=== PATIENT | female | born 1950 | race Caucasian/White ===

== ENCOUNTER 2019-04-16 11:20 | Inpatient (IN) ==
[2019-04-16] MEDS ORDERED: MORPHINE SULFATE 2 MG/ML DISP.SYRIN IV ONE (12:00)
[2019-04-16 12:14] LABS: Hematocrit 30.3 % (37.0-47.0); Hemoglobin 9.6 gm/dL (12.5-16.0); Mean Cell Volume 104.1 fl (78-100); Mean Corpuscular Hgb Conc 31.7 g/dl (32-36); Mean Platelet Volume 11.3 fl (8-12.5); Neutrophil # 4.9 K/mm3 (1.3-6.0); Neutrophil % 86.3 % (42-75.0); Platelet Count 140 K/mm3 (150-450); Red Blood Count 2.91 M/mm3 (4.2-5.4); Red Cell Distribution Width 15.3 % (11.5-14.0); White Blood Count 5.7 K/mm3 (4.0-10.5)
[2019-04-16 12:27] LABS: Albumin * 2.3 gm/dl (3.4-5.0); Anion Gap 11.9 mmol/L (6.8-13.8); BUN/Creatinine Ratio 31.4 (9.0-21.6); Bilirubin, Total 0.4 mg/dL (0.0-1.1); CRP 5.2 mg/dL (0.0-0.9); Ca. Corrected For Albumin 9.9 mg/dL (8.4-10.2); Calcium * 8.9 mg/dL (7.9-10.9); Carbon Dioxide 27.1 mmol/L (24-32.6)
[2019-04-16 13:10] LABS: Urine Bilirubin Negative (NEGATIVE); Urine Ketone Negative (NEGATIVE); Urine Nitrite Negative (NEGATIVE); Urine Protein Negative (NEGATIVE); Urine Specific Gravity 1.015 SP.GR. (1.005-1.010); Urine Urobilinogen Normal (NORMAL)
[2019-04-16] MEDS ORDERED: MORPHINE SULFATE 2 MG/ML DISP.SYRIN IM ONE (13:15)
[2019-04-16 13:16] LABS: Urine Appearance Clear (CLEAR); Urine Bacteria 2+; Urine Blood 5 /ul (NEGATIVE); Urine Color Yellow; Urine RBC None Seen /hpf (0-5)
[2019-04-16] MEDS ORDERED: cefTRIAXone SODIUM 1,000 MG/100 ML BAG IV ONE (13:50)
--- NOTE | 2019-04-16 14:20 | ERNOTE ---
Back Pain ER HPI Date of Service: 04/16/19 Presenting Symptoms: hx chronic back pain Time Seen by Provider: 04/16/19 11:47 Source: patient, family Exam Limitations: no limitations Immunizations: IMMUNIZATION HX Immunizations Up to Date No History of Influenza Vaccine Yes Hx Pneumococcal Vaccination Yes Allergies/Adverse Reactions: Allergies Sulfa (Sulfonamide Antibiotics) Adverse Reaction (Verified 04/16/19 11:30) Home Medications: HOME MEDICATIONS Ascorbic Acid [Vitamin C] 500 mg PO DAILY 03/26/19 [Last Taken Unknown] Aspirin [Aspirin EC] 81 mg PO DAILY 03/26/19 [Last Taken Unknown] Atorvastatin Calcium [Lipitor] 10 mg PO DAILY 03/26/19 [Last Taken Unknown] Bumetanide 1 mg PO DAILY 03/26/19 [Last Taken Unknown] Cyanocobalamin (Vitamin B-12) [Vitamin B-12] 1,000 mcg PO DAILY 03/26/19 [Last Taken Unknown] Folic Acid 0.8 mg PO DAILY 03/26/19 [Last Taken Unknown] Hydroxychloroquine Sulfate 200 mg PO DAILY 03/26/19 [Last Taken Unknown] Levothyroxine Sodium [Synthroid] 112 mcg PO DAILY 03/26/19 [Last Taken Unknown] Lidocaine [Lidocaine Pain Relief] 1 ea TOPICAL HS 03/26/19 [Last Taken Unknown] Multivitamin [One Daily] 1 ea PO DAILY 03/26/19 [Last Taken Unknown] Pregabalin 200 mg PO TID 03/26/19 [Last Taken Unknown] Rivaroxaban [Xarelto] 10 mg PO DAILY 03/26/19 [Last Taken Unknown] Sennosides/Docusate Sodium [Senokot-S] 1 tab PO BID 03/26/19 [Last Taken Unknown] amLODIPine BESYLATE [Norvasc] 5 mg PO DAILY 03/26/19 [Last Taken Unknown] Polyethylene Glycol 3350 [Miralax] 17 gm PO DAILY 04/01/19 [Last Taken Unknown] metFORMIN HCL [Metformin HCl] 500 mg PO BID 04/01/19 [Last Taken Unknown] tiZANidine HCL [Tizanidine HCl] 4 mg PO TID PRN 04/01/19 [Last Taken Unknown] Acetaminophen 650 mg PO .Q6H PRN 04/16/19 [Last Taken Unknown] Bisacodyl 10 mg RC DAILY PRN 04/16/19 [Last Taken Unknown] Lidocaine HCl [Aspercreme] 76.5 gm TOPICAL QID PRN 04/16/19 [Last Taken Unknown] Menthol/Zinc Oxide [Calmoseptine Ointment] 71 gm TOPICAL BID 04/16/19 [Last Taken Unknown] Saccharomyces Boulardii [Probiotic] 250 mg PO DAILY 04/16/19 [Last Taken Unknown] Narrative: Patient presents to the ED via EMS. EMS called for back pain. THis has been chronic back pain that she has been seen many times for. She by report had been doing well up to December 21, 2018, since then she has gone downhill. She has been unable to walk well, chronic low back pain. She has had UTI and just finished Macrobid yesterday. Had low abdominal pain yesterday and dysuria and was cathed with 700 cc in her bladder last night. No fever. No falls. Pain worse with movement. Timing: Reports: constant, getting worse Quality/Severity: Reports: severe Location of pain: Reports: other - low back Activities at Onset: Reports: none Recent Injury?: Reports: no Possible Precipitating Factor: Reports: none Modifying Factors - (Improves): Reports: nothing Modifying Factors - (Worsens): Reports: other - movement Associated Symptoms: Reports: problems urinating. Denies: fever/chills, nausea/vomiting Prior Treament: Reports: recently seen, similar symptoms before Review of Systems - Review of Systems Constitutional: Absent: fever Respiratory: Absent: shortness of breath Cardiology: Absent: chest pain Gastrointestinal/Abdominal: Present: other - low abdominal pain last night Genitourinary: Present: See HPI All Other Systems: All systems neg except as marked Medical History (Last Reviewed 04/16/19 @ 14:12 by Jesus Alberto Ocampo MD) Anal fistula Diabetes High cholesterol Hypertension Hypothyroid Rheumatoid arthritis Shingles Spinal stenosis Surgical History: Surgical History (Last Reviewed 04/16/19 @ 14:12 by Jesus Alberto Ocampo MD) S/P cervical spinal fusion Family History: Family History (Last Reviewed 04/16/19 @ 14:12 by Jesus Alberto Ocampo MD) Other No pertinent family history Social History: (Last Reviewed 04/16/19 @ 14:12 by Jesus Alberto Ocampo MD) Tobacco: Smoking Status: Former smoker Alcohol: alcohol intake: never Substance Use: substance use type: does not use Physical Exam - Physical Exam General Appearance: Present: alert, other - yells out in pain with movement Head Exam: Present: normal inspection, no evidence of injury Eye Exam: Normal inspection: bilateral, PERRL: bilateral Ears, Nose, Throat: Present: normal ENT inspection Neck: Present: normal inspection Respiratory: Present: no respiratory distress, normal breath sounds, no accessory muscle use, lungs clear Cardiovascular/Chest: Present: regular rate, rhythm, normal peripheral pulses Gastrointestinal/Abdominal: Present: normal bowel sounds, nondistended, soft, other - mild suprapubic tendenress low abdomen. No guarding or rebound. No clear masses or peritoneal signs Back Exam: Present: other - unable to localize tennderess to point vertebral site. Absent: CVA tenderness (R), CVA tenderness (L) Extremity Exam: Present: other - no deformity Neurological Exam: Present: alert, other - pain significantly limits exam but I cannot identift clear evidence of acute cauda equina syndrone Skin Exam: Present: normal color, warm/dry Progress - Results and Orders Patient's Lab Results:: I have reviewed the patient's lab results. - Vital Signs Patient's Vital Signs:: I have reviewed the patient's vital signs. Vital Signs: Vital Signs 04/16/19 11:23 04/16/19 13:29 Temperature 36.5 C Pulse Rate 102 H 91 Respiratory Rate 15 14 Blood Pressure 116/77 125/54 O2 Sat by Pulse Oximetry 100 100 - Progress/Reassessment Chief Complaint: Back Pain Progress Note-Subjective: 04/16/19 14:14 Patient has had 2 CT lumbar here in the last couple of weeks. I feel she needs MRI but has cochlear implant. She needs admission. Patient seen in ED by Dr Mackay and she will admit for further evaluation and management. Has UTI with failed outpatient management and intractable back pain. 04/16/19 14:19 Departure Clinical Impression: Intractable back pain, UTI (urinary tract infection), Failure of outpatient treatment - Departure Disposition: Still a patient Condition: Fair
[2019-04-16] MEDS ORDERED: DIATRIZOATE MEGLUMINE, SODIUM 30 ML BTL ONE (15:22)
[2019-04-16] MEDS ORDERED: LIDOCAINE HCL TP PRN (16:09)
[2019-04-16] MEDS ORDERED: ACETAMINOPHEN 325 MG TABLET PO PRN (16:09)
[2019-04-16] MEDS ORDERED: BISACODYL 10 MG SUPP.RECT RC PRN (16:09)
[2019-04-16] MEDS ORDERED: tiZANidine HCL 4 MG TABLET PO PRN (16:09)
--- NOTE | 2019-04-16 16:21 | HP ---
Chief Complaint - Chief Complaint Date of Service: 04/16/19 Time of Service: 14:00 Chief Complaint: back pain History of Present Illness: Pt witha PMHx of rheumatoid arthritis, rectovaginal fistula, obesity, diabetes, remote DVT. She is a resident of a care facility in [place], and her PCP is an outside physician. She has had multiple ED visits for severe back pain in the last few weeks. Prior to that, she was hospitalized with what family reports as a blood infection at [facility], and the source was unknown. She has had the rectovaginal fistula, but declines surgical intervention. She's had several UTIs in the last few months. She was just prescribed macrobid, which she finished yesterday. She also had a physician offer to give her an injection in her back for her pain, but requires the UTI to be cleared prior to the injection. Family states she has multiple bulging discs. She has not walked in several weeks due to the pain. She has had difficulty urinating, and family reports she screams when she urinates. Cutler catheter was placed last night, and 700 cc urine was drained from her bladder. In the ED, WBC is normal and she is afebrile. ESR is elevated at 115. CRP is also elevated at 5.2, which is an improvement from 04/01, when it was 33. She has a cochlear implant which precludes MRI. CT lumbar spine, done 03/26 and 04/01 showed multilevel degenerative change. She is not currently prescribed pain medication. She has chronic renal failure, and appears to be at her baseline. Medical History (Last Reviewed 04/16/19 @ 14:59 by Keyon Rea RN) Anal fistula Diabetes High cholesterol Hypertension Hypothyroid Rheumatoid arthritis Shingles Spinal stenosis Surgical History: Surgical History (Last Reviewed 04/16/19 @ 14:59 by Keyon Rea RN) S/P cervical spinal fusion Family History: Family History (Last Reviewed 04/16/19 @ 14:59 by Keyon Rea RN) Other No pertinent family history Social History: (Last Reviewed 04/16/19 @ 14:59 by Keyon Rea RN) Tobacco: Smoking Status: Former smoker Alcohol: alcohol intake: never Substance Use: substance use type: does not use Review Of Systems (GEN) - Review of Systems Generalized/Overall Review: Absent: Fever Respiratory: Absent: Cough, Shortness of Breath Cardiac: Absent: Chest Pain, Edema Abdominal: Absent: Vomiting Genitourinary: Present: Retention, Dysuria Musculoskeletal: Present: Back Pain Neurological: Present: No Symptoms Reported Skin: Present: No Symptoms Reported Immunizations: IMMUNIZATION HX Immunizations Up to Date No History of Influenza Vaccine Yes Hx Pneumococcal Vaccination Yes Allergies/Adverse Reactions: Allergies Allergy/AdvReac Type Severity Reaction Status Date / Time Sulfa (Sulfonamide AdvReac Verified 04/16/19 14:59 Antibiotics) Home Medications: HOME MEDICATIONS Ascorbic Acid [Vitamin C] 500 mg PO DAILY 03/26/19 [Last Taken Unknown] Aspirin [Aspirin EC] 81 mg PO DAILY 03/26/19 [Last Taken Unknown] Atorvastatin Calcium [Lipitor] 10 mg PO DAILY 03/26/19 [Last Taken Unknown] Bumetanide 1 mg PO DAILY 03/26/19 [Last Taken Unknown] Cyanocobalamin (Vitamin B-12) [Vitamin B-12] 1,000 mcg PO DAILY 03/26/19 [Last Taken Unknown] Folic Acid 0.8 mg PO DAILY 03/26/19 [Last Taken Unknown] Hydroxychloroquine Sulfate 200 mg PO DAILY 03/26/19 [Last Taken Unknown] Levothyroxine Sodium [Synthroid] 112 mcg PO DAILY 03/26/19 [Last Taken Unknown] Lidocaine [Lidocaine Pain Relief] 1 ea TOPICAL HS 03/26/19 [Last Taken Unknown] Multivitamin [One Daily] 1 ea PO DAILY 03/26/19 [Last Taken Unknown] Pregabalin 200 mg PO TID 03/26/19 [Last Taken Unknown] Rivaroxaban [Xarelto] 10 mg PO DAILY 03/26/19 [Last Taken Unknown] Sennosides/Docusate Sodium [Senokot-S] 1 tab PO BID 03/26/19 [Last Taken Unknown] amLODIPine BESYLATE [Norvasc] 5 mg PO DAILY 03/26/19 [Last Taken Unknown] Polyethylene Glycol 3350 [Miralax] 17 gm PO DAILY PRN 04/01/19 [Last Taken Unknown] metFORMIN HCL [Metformin HCl] 500 mg PO BID 04/01/19 [Last Taken Unknown] tiZANidine HCL [Tizanidine HCl] 4 mg PO TID PRN 04/01/19 [Last Taken Unknown] Acetaminophen 650 mg PO .Q6H PRN 04/16/19 [Last Taken Unknown] Bisacodyl 10 mg RC DAILY PRN 04/16/19 [Last Taken Unknown] Lidocaine HCl [Aspercreme] 76.5 gm TOPICAL QID PRN 04/16/19 [Last Taken Unknown] Menthol/Zinc Oxide [Calmoseptine Ointment] 71 gm TOPICAL BID 04/16/19 [Last Taken Unknown] Methotrexate Sodium [Methotrexate] 15 mg PO MO 04/16/19 [Last Taken Unknown] Mycophenolate Mofetil [Cellcept] 500 mg PO 0600,1600 04/16/19 [Last Taken Un known] Saccharomyces Boulardii [Probiotic] 250 mg PO DAILY 04/16/19 [Last Taken Unknown] Exam - Exam Vital Signs: Vital Signs - Last Taken Temp 36.5 C 04/16/19 15:15 Pulse 96 04/16/19 15:24 Resp 16 04/16/19 15:15 BP 145/63 04/16/19 15:15 Pulse Ox 100 04/16/19 15:15 Constitutional: Present: Elderly, Morbidly obese, Looks Older than stated age Respiratory: Present: lungs clear, normal breath sounds Cardiovascular/Chest: Present: regular rate, rhythm Abdomen: Present: tender - diffuse Skin Exam: Present: other - bruising of left lower leg Diagnostic Studies: Abnormal Lab Results 04/16/19 04/16/19 04/16/19 Range/Units 12:13 12:13 12:13 RBC 2.91 L (4.2-5.4) M/mm3 Hgb 9.6 L (12.5-16.0) gm/dL Hct 30.3 L (37.0-47.0) % MCV 104.1 H (78-100) fl MCH 33.0 H (27-31) pg MCHC 31.7 L (32-36) g/dl RDW 15.3 H (11.5-14.0) % Plt Count 140 L (150-450) K/mm3 Immature Gran % (Auto) 0.70 H (0.001-0.429) % Immature Gran # (Auto) 0.04 H (0.000-0.0310) K/mm3 Neutrophils % 86.3 H (42-75.0) % Lymphocytes % 9.5 L (20-51) % Lymphocytes # 0.54 L (1.5-3.5) k/mm3 ESR 115 H (0-15) mm/hr BUN 65 H (3-23) mg/dL Creatinine 2.07 H D (0.4-1.4) mg/dL Est GFR (Non-Af Amer) 25 L D (60-130) mL/min BUN/Creatinine Ratio 31.4 H (9.0-21.6) Random Glucose 171 H (70-110) mg/dL AST 69 H (0-48) U/L Alkaline Phosphatase 201 H (50-170) U/L C-Reactive Prot, Quant 5.2 H (0.0-0.9) mg/dL Albumin 2.3 L (3.4-5.0) gm/dl Urine Blood (NEGATIVE) /ul Ur Leukocyte Esterase (NEGATIVE) /ul Urine WBC (0-5) /hpf Urine Bacteria (NONE) 04/16/19 Range/Units 13:02 RBC (4.2-5.4) M/mm3 Hgb (12.5-16.0) gm/dL Hct (37.0-47.0) % MCV (78-100) fl MCH (27-31) pg MCHC (32-36) g/dl RDW (11.5-14.0) % Plt Count (150-450) K/mm3 Immature Gran % (Auto) (0.001-0.429) % Immature Gran # (Auto) (0.000-0.0310) K/mm3 Neutrophils % (42-75.0) % Lymphocytes % (20-51) % Lymphocytes # (1.5-3.5) k/mm3 ESR (0-15) mm/hr BUN (3-23) mg/dL Creatinine (0.4-1.4) mg/dL Est GFR (Non-Af Amer) (60-130) mL/min BUN/Creatinine Ratio (9.0-21.6) Random Glucose (70-110) mg/dL AST (0-48) U/L Alkaline Phosphatase (50-170) U/L C-Reactive Prot, Quant (0.0-0.9) mg/dL Albumin (3.4-5.0) gm/dl Urine Blood 5 H (NEGATIVE) /ul Ur Leukocyte Esterase 75 H (NEGATIVE) /ul Urine WBC 10-25 H (0-5) /hpf Urine Bacteria 2+ H (NONE) Laboratory Results WBC 5.7 K/mm3 (4.0-10.5) 04/16/19 12:13 RBC 2.91 M/mm3 (4.2-5.4) L 04/16/19 12:13 Hgb 9.6 gm/dL (12.5-16.0) L 04/16/19 12:13 Hct 30.3 % (37.0-47.0) L 04/16/19 12:13 MCV 104.1 fl (78-100) H 04/16/19 12:13 MCH 33.0 pg (27-31) H 04/16/19 12:13 MCHC 31.7 g/dl (32-36) L 04/16/19 12:13 RDW 15.3 % (11.5-14.0) H 04/16/19 12:13 Plt Count 140 K/mm3 (150-450) L 04/16/19 12:13 MPV 11.3 fl (8-12.5) 04/16/19 12:13 Immature Gran % (Auto) 0.70 % (0.001-0.429) H 04/16/19 12:13 Immature Gran # (Auto) 0.04 K/mm3 (0.000-0.0310) H 04/16/19 12:13 Neutrophils % 86.3 % (42-75.0) H 04/16/19 12:13 Lymphocytes % 9.5 % (20-51) L 04/16/19 12:13 Monocytes % 2.6 % (0.0-9) 04/16/19 12:13 Eosinophils % 0.5 % (0.0-3.0) 04/16/19 12:13 Basophils % 0.4 % (0.0-1.0) 04/16/19 12:13 Nucleated RBC % 0.0 k/mm3 (0-1) 04/16/19 12:13 Neutrophils # 4.9 K/mm3 (1.3-6.0) 04/16/19 12:13 Lymphocytes # 0.54 k/mm3 (1.5-3.5) L 04/16/19 12:13 Monocytes # 0.2 k/mm3 (0.0-1.0) 04/16/19 12:13 Eosinophils # 0.0 k/mm3 (0.0-0.7) 04/16/19 12:13 Absolute Basophils 0.0 k/mm3 (0.0-0.1) 04/16/19 12:13 ESR 115 mm/hr (0-15) H 04/16/19 12:13 Sodium 135 mmol/L (132-142) 04/16/19 12:13 Plasma Sodium 136 mmol/L (130-142) 04/16/19 12:13 Potassium 4.0 mmol/L (3.4-4.6) 04/16/19 12:13 Chloride 100 mmol/L (97-106) 04/16/19 12:13 Carbon Dioxide 27.1 mmol/L (24-32.6) 04/16/19 12:13 Anion Gap 11.9 mmol/L (6.8-13.8) 04/16/19 12:13 BUN 65 mg/dL (3-23) H 04/16/19 12:13 Creatinine 2.07 mg/dL (0.4-1.4) H D 04/16/19 12:13 Est GFR (Non-Af Amer) 25 mL/min (60-130) L D 04/16/19 12:13 BUN/Creatinine Ratio 31.4 (9.0-21.6) H 04/16/19 12:13 Random Glucose 171 mg/dL (70-110) H 04/16/19 12:13 Lactic Acid, Venous 1.5 mmol/L (0.4-2.0) 04/16/19 12:13 Calcium 8.9 mg/dL (7.9-10.9) 04/16/19 12:13 Calcium Adj for Albumin 9.9 mg/dL (8.4-10.2) 04/16/19 12:13 Total Bilirubin 0.4 mg/dL (0.0-1.1) 04/16/19 12:13 AST 69 U/L (0-48) H 04/16/19 12:13 ALT 61 U/L (19-67) 04/16/19 12:13 Alkaline Phosphatase 201 U/L (50-170) H 04/16/19 12:13 C-Reactive Prot, Quant 5.2 mg/dL (0.0-0.9) H 04/16/19 12:13 Total Protein 7.0 gm/dL (6.2-8.2) 04/16/19 12:13 Albumin 2.3 gm/dl (3.4-5.0) L 04/16/19 12:13 Procalcitonin 0.22 ng/mL (0.05-0.50) 04/16/19 13:32 Urine Color Yellow 04/16/19 13:02 Urine Appearance Clear (CLEAR) 04/16/19 13:02 Urine pH 6.0 pH (5.0-7.0) 04/16/19 13:02 Ur Specific [place] 1.015 SP.GR. (1.005-1.010) 04/16/19 13:02 Urine Protein Negative mg/dL (NEGATIVE) 04/16/19 13:02 Urine Glucose (UA) Negative mg/dL (NEGATIVE) 04/16/19 13:02 Urine Ketones Negative mg/dL (NEGATIVE) 04/16/19 13:02 Urine Blood 5 /ul (NEGATIVE) H 04/16/19 13:02 Urine Nitrate Negative (NEGATIVE) 04/16/19 13:02 Urine Bilirubin Negative mg/dl (NEGATIVE) 04/16/19 13:02 Urine Urobilinogen Normal EU/dl (NORMAL) 04/16/19 13:02 Ur Leukocyte Esterase 75 /ul (NEGATIVE) H 04/16/19 13:02 Urine RBC None seen /hpf (0-5) 04/16/19 13:02 Urine WBC 10-25 /hpf (0-5) H 04/16/19 13:02 Ur Epithelial Cells 0-5 /hpf (0-5) 04/16/19 13:02 Urine Bacteria 2+ (NONE) H 04/16/19 13:02 Urine Culture Comments Culture to follow 04/16/19 13:02 Assessment/Plan - Assessment/Plan (1) Intractable back pain Assessment: Lumbar CTs that have been done recently did not reveal a source of her back pain. She can not get an MRI due to the type of cochlear implant she has. This does not appear to be a new concern, as she has had so many ED visits. Her vitals are within normal limits. Will attempt to control pain with norco. When pain is controlled, can DC back to facility. PT eval pending. Her ESR was highly elevated, but she had 2 [address]s, which would have shown discitis. ESR can also be elevated in obesity, and she also has RA, and a UTI. Will attempt to compare to previous levels at hospitalizations at outside facilities. Will recheck ESR in am. Her CRP improved since last check, so anticipate her ESR may be improving as well. Problem: Acute (2) Rectovaginal fistula Assessment: Discussed options with gynecology, and I recommend she see urogynecology as an outpatient. Problem: Chronic (3) UTI (urinary tract infection) Assessment: Rocephin started in the eD, and will continue. Her urine culture from 04/01 grew Klebsiella, sensitive to rocephin. She'd reportedly been on macrobid until yesterday. With her rectovaginal fistula, and her inability to walk, it will be almost impossible to keep her from having recurrent UTIs. Recommend she see urogynecology after ED. Problem: Acute (4) Acute on chronic renal failure Assessment: Creatinine of 2.07. The three creatinine levels we have here, in the last month, have been greater than 2.0, so she may be at her baseline. GFR of 26, again which appears to be her baseline. Will ask pharmacy's assistance to renally dose her medications on DC. Problem: Acute (5) Abdominal pain Assessment: Her renal function is too low for IV contrast, and she declined po contrast for a CT. Noncontrast CT abd/pel will be of limited benefit, but will help with diagnosis. She has generalized abdominal pain on exam. She is prescribed several medications for constipation, and will continue. Problem: Acute Qualifiers: Abdominal location: generalized Qualified Code(s): R10.84 - Generalized abdominal pain (6) History of DVT (deep vein thrombosis) Assessment: Son reports one incidence of DVT several years ago, and she is prescribed Xarelto. Will attempt to obtain records from PCP and recent hospitalizations. If it truly was an isolated clot, she may not need ongoing anticoagulation. However, she is bedbound currently, putting her at increased risk for clot. Will need to discuss risks vs benefits. Problem: Chronic (7) Diabetes mellitus Assessment: She is prescribed metformin, however with her GFR of less than 40, this is contraindicated. Will hold, and DC. Problem: Chronic (8) Rheumatoid arthritis Assessment: she is prescribed mycophenolate and methotrexate for RA. Will attempt to get rheumatology records. Problem: Chronic
[2019-04-16] MEDS: HYDROcodone/ACETAMINOPHEN 1 EACH TABLET PO PRN (16:58)
[2019-04-16] MEDS: NORMAL SALINE 1,000 ML IV PRN (16:58)
[2019-04-16] MEDS: GABAPENTIN 100 MG CAPSULE PO SCH (17:00)
[2019-04-16] MEDS ORDERED: DIATRIZOATE MEGLUMINE, SODIUM 30 ML BTL PO ONE (17:00)
[2019-04-16] MEDS ORDERED: metFORMIN HCL 500 MG TABLET PO SCH (17:00)
[2019-04-16] MEDS: Menthol/Zinc Oxide [Calmoseptine Ointment] TP SCH (20:25)
[2019-04-16] MEDS: LIDOCAINE TP SCH (20:25)
[2019-04-17] MEDS: NORMAL SALINE 1,000 ML IV PRN (00:54)
[2019-04-17] MEDS: HYDROcodone/ACETAMINOPHEN 1 EACH TABLET PO PRN ×4 (00:57→21:40)
[2019-04-17] MEDS: VANCOMYCIN HCL 50 MG/ML BTL PO SCH ×4 (02:33→21:10)
[2019-04-17] MEDS: LEVOTHYROXINE SODIUM 112 MCG TABLET PO SCH (06:49)
[2019-04-17 07:54] LABS: Albumin * 2.1 gm/dl (3.4-5.0); Anion Gap 12.9 mmol/L (6.8-13.8); BUN/Creatinine Ratio 32.6 (9.0-21.6); Bilirubin, Total 0.5 mg/dL (0.0-1.1); Ca. Corrected For Albumin 9.9 mg/dL (8.4-10.2); Calcium * 8.7 mg/dL (7.9-10.9); Carbon Dioxide 25.6 mmol/L (24-32.6); Potassium 3.5 mmol/L (3.4-4.6); Total Protein 6.4 gm/dL (6.2-8.2)
[2019-04-17] MEDS: BUMETANIDE 1 MG TABLET PO SCH (09:29)
[2019-04-17] MEDS: Menthol/Zinc Oxide [Calmoseptine Ointment] TP SCH ×2 (09:33→20:12)
[2019-04-17] MEDS: amLODIPine BESYLATE 5 MG TABLET PO SCH (09:33)
[2019-04-17] MEDS: GABAPENTIN 100 MG CAPSULE PO SCH ×3 (09:33→17:03)
[2019-04-17] MEDS: HYDROXYCHLOROQUINE SULFATE 200 MG TABLET PO SCH (09:34)
--- NOTE | 2019-04-17 09:38 | PN ---
Subjective - Date and Time Seen Date: 04/17/19 Time: 08:30 Subjective Narrative: She reports feeling a bit better this morning. She has been having diarrhea overnight, however. She does not feel very hungry, but is thirsty. Objective - Review of Systems Generalized/Overall Review: Reports: Weakness. Denies: Fever Respiratory: Reports: Cough. Denies: Shortness of Breath Cardiac: Denies: Edema Abdominal: Reports: Diarrhea. Denies: Vomiting Genitourinary Symptoms: Reports: Other - catheter in place Musculoskeletal Complaints: Reports: Back Pain - Vitals Vitals: Last Vital Signs Temp 36.9 C 04/17/19 08:00 Pulse 85 04/17/19 09:33 Resp 16 04/17/19 08:00 BP 135/55 04/17/19 09:33 Pulse Ox 100 04/17/19 08:00 - Abnormal Lab Findings Abnormal Lab Findings: Abnormal Lab Results 04/16/19 04/16/19 04/16/19 Range/Units 12:13 12:13 12:13 RBC 2.91 L (4.2-5.4) M/mm3 Hgb 9.6 L (12.5-16.0) gm/dL Hct 30.3 L (37.0-47.0) % MCV 104.1 H (78-100) fl MCH 33.0 H (27-31) pg MCHC 31.7 L (32-36) g/dl RDW 15.3 H (11.5-14.0) % Plt Count 140 L (150-450) K/mm3 Immature Gran % (Auto) 0.70 H (0.001-0.429) % Immature Gran # (Auto) 0.04 H (0.000-0.0310) K/mm3 Neutrophils % 86.3 H (42-75.0) % Lymphocytes % 9.5 L (20-51) % Lymphocytes # 0.54 L (1.5-3.5) k/mm3 ESR 115 H (0-15) mm/hr BUN 65 H (3-23) mg/dL Creatinine 2.07 H D (0.4-1.4) mg/dL Est GFR (Non-Af Amer) 25 L D (60-130) mL/min BUN/Creatinine Ratio 31.4 H (9.0-21.6) Random Glucose 171 H (70-110) mg/dL AST 69 H (0-48) U/L ALT (19-67) U/L Alkaline Phosphatase 201 H (50-170) U/L C-Reactive Prot, Quant 5.2 H (0.0-0.9) mg/dL Albumin 2.3 L (3.4-5.0) gm/dl Urine Blood (NEGATIVE) /ul Ur Leukocyte Esterase (NEGATIVE) /ul Urine WBC (0-5) /hpf Urine Bacteria (NONE) Stl C.difficile Tox A&B (Negative) 04/16/19 04/17/19 04/17/19 Range/Units 13:02 00:40 07:24 RBC (4.2-5.4) M/mm3 Hgb (12.5-16.0) gm/dL Hct (37.0-47.0) % MCV (78-100) fl MCH (27-31) pg MCHC (32-36) g/dl RDW (11.5-14.0) % Plt Count (150-450) K/mm3 Immature Gran % (Auto) (0.001-0.429) % Immature Gran # (Auto) (0.000-0.0310) K/mm3 Neutrophils % (42-75.0) % Lymphocytes % (20-51) % Lymphocytes # (1.5-3.5) k/mm3 ESR Greater than 120 H (0-15) mm/hr BUN (3-23) mg/dL Creatinine (0.4-1.4) mg/dL Est GFR (Non-Af Amer) (60-130) mL/min BUN/Creatinine Ratio (9.0-21.6) Random Glucose (70-110) mg/dL AST (0-48) U/L ALT (19-67) U/L Alkaline Phosphatase (50-170) U/L C-Reactive Prot, Quant (0.0-0.9) mg/dL Albumin (3.4-5.0) gm/dl Urine Blood 5 H (NEGATIVE) /ul Ur Leukocyte Esterase 75 H (NEGATIVE) /ul Urine WBC 10-25 H (0-5) /hpf Urine Bacteria 2+ H (NONE) Stl C.difficile Tox A&B Positive H (Negative) 04/17/19 Range/Units 07:24 RBC (4.2-5.4) M/mm3 Hgb (12.5-16.0) gm/dL Hct (37.0-47.0) % MCV (78-100) fl MCH (27-31) pg MCHC (32-36) g/dl RDW (11.5-14.0) % Plt Count (150-450) K/mm3 Immature Gran % (Auto) (0.001-0.429) % Immature Gran # (Auto) (0.000-0.0310) K/mm3 Neutrophils % (42-75.0) % Lymphocytes % (20-51) % Lymphocytes # (1.5-3.5) k/mm3 ESR (0-15) mm/hr BUN 58 H (3-23) mg/dL Creatinine 1.78 H (0.4-1.4) mg/dL Est GFR (Non-Af Amer) 30 L (60-130) mL/min BUN/Creatinine Ratio 32.6 H (9.0-21.6) Random Glucose (70-110) mg/dL AST 129 H (0-48) U/L ALT 84 H (19-67) U/L Alkaline Phosphatase 604 H (50-170) U/L C-Reactive Prot, Quant (0.0-0.9) mg/dL Albumin 2.1 L (3.4-5.0) gm/dl Urine Blood (NEGATIVE) /ul Ur Leukocyte Esterase (NEGATIVE) /ul Urine WBC (0-5) /hpf Urine Bacteria (NONE) Stl C.difficile Tox A&B (Negative) - Exam Constitutional: Present: Alert, Elderly, Morbidly obese, Looks Older than stated age Respiratory: Present: lungs clear, no respiratory distress Cardiovascular/Chest: Present: regular rate, rhythm Abdomen: Present: soft, tender - improved from yesterday /Rectal: Present: Other - kirby in place Extremity: Absent: lower extremity edema Cauti Physician Documentation - Urinary Catheter Management Urethral (Kirby) Date of Insertion: 04/16/19 Time of Insertion: 12:50 Assessment/Plan - Problems/Diagnosis (1) C. difficile colitis Problem: Acute Narrative: C diff toxin was positive overnight, and she was started on 125 mg vancomycin po q6h. This could be the source of her elevated ESR. (2) Intractable back pain Problem: Acute Narrative: Seems to be better with the norco. She has a kirby catheter in place, and urinary retention could have also been contributing to her pain. She had degenerative changes on CT lumbar spine last month. (3) UTI (urinary tract infection) Problem: Acute Narrative: urine culture is positive for gram negative bacilli. Rocephin started last night in the ED. She had been on macrobid until the day prior to admission, but her recent urine culture from 04/01 grew Klebsiella, sensitive to rocephin, and was not sensitive to macrobid. She was afebrile, and WBC not elevated on admission, so I do not believe she had pyelonephritis. She hasn't walked in several weeks. Immobility and her obesity are compromising her immune system, and she will have difficulty recovering. (4) Rectovaginal fistula Problem: Chronic Narrative: Discussed the fistula, and the strong likelihood that she will continue to have UTIs unless the fistula is addressed. Recommend urogynecology referral on DC. (5) Acute on chronic renal failure Problem: Acute Narrative: Her renal function is better this morning, with creatinine of 1.78 and GFR of 30. This is better than the labs we've drawn here over the last month. She was given 2 L NS since admission, and started clear liquid diet today. (6) Abdominal pain Problem: Acute Qualifiers: Abdominal location: generalized Qualified Code(s): R10.84 - Generalized abdominal pain Narrative: Better this morning. Ddx includes c diff, UTI, cholecystitis. She was started on rocephin in the ED for her UTI, and started on vancomycin overnight for the c diff. Her abdomen isn't as tender today. Recheck CMP tomorrow, and can obtain US if alk phos, AST, ALT worsen. (7) Elevated alkaline phosphatase level Problem: Acute Narrative: alk phos of 604, AST of 129, ALT of 124, all are increased from yesterday. She feels better, however. Will recheck in the morning, and if further elevated, will obtain RUQ US. (8) History of DVT (deep vein thrombosis) Problem: Chronic (9) Diabetes mellitus Problem: Chronic Narrative: Glucose has been well controlled. Will need to DC metformin, as her GFR is less than 40. (10) Rheumatoid arthritis Problem: Chronic Narrative: Family reports she takes mycophenolate and methotrexate for RA, but these weren't included in her admission meds. Will need to verify. Would also appreciate help from pharmacy to renally dose meds on DC.
[2019-04-17] MEDS ORDERED: VANCOMYCIN/WATER FOR INJ (PEG) 1 GM/200 ML BAG IV SCH (12:45)
[2019-04-17] MEDS: VANCOMYCIN/WATER FOR INJ (PEG) 1.5 GM/300 ML BAG IV SCH (13:36)
[2019-04-17] MEDS: LIDOCAINE TP SCH (20:11)
[2019-04-18] MEDS: VANCOMYCIN HCL 50 MG/ML BTL PO SCH ×4 (03:07→21:07)
[2019-04-18 07:59] LABS: Hematocrit 31.1 % (37.0-47.0); Hemoglobin 9.7 gm/dL (12.5-16.0); Mean Cell Volume 105.4 fl (78-100); Mean Corpuscular Hemoglobin 32.9 pg (27-31); Mean Corpuscular Hgb Conc 31.2 g/dl (32-36); Neutrophil # 1.2 K/mm3 (1.3-6.0); Neutrophil % 59.9 % (42-75.0); Platelet Count 80 K/mm3 (150-450); Red Blood Count 2.95 M/mm3 (4.2-5.4); Red Cell Distribution Width 15.6 % (11.5-14.0)
[2019-04-18 08:14] LABS: Albumin * 2.1 gm/dl (3.4-5.0); Anion Gap 10.9 mmol/L (6.8-13.8); BUN/Creatinine Ratio 28.8 (9.0-21.6); Bilirubin, Total 0.4 mg/dL (0.0-1.1); Ca. Corrected For Albumin 9.8 mg/dL (8.4-10.2); Calcium * 8.6 mg/dL (7.9-10.9); Carbon Dioxide 26.2 mmol/L (24-32.6); Potassium 3.1 mmol/L (3.4-4.6); Total Protein 6.2 gm/dL (6.2-8.2)
[2019-04-18] MEDS: amLODIPine BESYLATE 5 MG TABLET PO SCH (09:37)
[2019-04-18] MEDS: LEVOTHYROXINE SODIUM 112 MCG TABLET PO SCH (09:37)
[2019-04-18] MEDS: GABAPENTIN 100 MG CAPSULE PO SCH ×3 (09:38→16:31)
[2019-04-18] MEDS: BUMETANIDE 1 MG TABLET PO SCH (09:38)
[2019-04-18] MEDS: Menthol/Zinc Oxide [Calmoseptine Ointment] TP SCH ×2 (09:38→20:39)
[2019-04-18] MEDS: HYDROXYCHLOROQUINE SULFATE 200 MG TABLET PO SCH (09:38)
--- NOTE | 2019-04-18 11:52 | PN ---
Subjective - Date and Time Seen Date: 04/18/19 Time: 10:45 Subjective Narrative: She continues to do mildly better. She is tolerating a clear liquid diet. It seems like the diarrhea is slowing down. Her back pain is improved. Objective - Review of Systems Generalized/Overall Review: Denies: Fever Respiratory: Denies: Cough, Shortness of Breath Cardiac: Denies: Chest Pain, Edema Abdominal: Reports: Diarrhea. Denies: Vomiting Genitourinary Symptoms: Reports: Other - kirby catheter in place Musculoskeletal Complaints: Reports: Back Pain - Vitals Vitals: Last Vital Signs Temp 36.5 C 04/18/19 06:00 Pulse 87 04/18/19 10:42 Resp 16 04/18/19 06:00 BP 127/52 04/18/19 09:37 Pulse Ox 95 04/18/19 06:00 - Abnormal Lab Findings Abnormal Lab Findings: Abnormal Lab Results 04/18/19 04/18/19 Range/Units 07:15 07:15 WBC 2.0 L D (4.0-10.5) K/mm3 RBC 2.95 L (4.2-5.4) M/mm3 Hgb 9.7 L (12.5-16.0) gm/dL Hct 31.1 L (37.0-47.0) % MCV 105.4 H (78-100) fl MCH 32.9 H (27-31) pg MCHC 31.2 L (32-36) g/dl RDW 15.6 H (11.5-14.0) % Plt Count 80 L (150-450) K/mm3 Immature Gran % (Auto) 2.90 H (0.001-0.429) % Immature Gran # (Auto) 0.06 H (0.000-0.0310) K/mm3 Monocytes % 10.8 H (0.0-9) % Neutrophils # 1.2 L (1.3-6.0) K/mm3 Lymphocytes # 0.47 L (1.5-3.5) k/mm3 Potassium 3.1 L (3.4-4.6) mmol/L BUN 45 H (3-23) mg/dL Creatinine 1.56 H (0.4-1.4) mg/dL Est GFR (Non-Af Amer) 35 L (60-130) mL/min BUN/Creatinine Ratio 28.8 H (9.0-21.6) AST 89 H (0-48) U/L ALT 73 H (19-67) U/L Alkaline Phosphatase 518 H (50-170) U/L Albumin 2.1 L (3.4-5.0) gm/dl - Exam Constitutional: Present: Alert, No distress, Morbidly obese Respiratory: Present: lungs clear, normal breath sounds, other - distant lung sounds due to body habitus Cardiovascular/Chest: Present: regular rate, rhythm Abdomen: Present: soft, nontender /Rectal: Present: Other - kirby in place Extremity: Absent: lower extremity edema Eye contact: Present: cooperative, good eye contact Cauti Physician Documentation - Urinary Catheter Management Urethral (Kirby) Date of Insertion: 04/16/19 Time of Insertion: 12:50 Assessment/Plan - Problems/Diagnosis (1) Bacteremia Problem: Acute Narrative: Blood cultures both show heavy growth of strep. IV vancomycin was started yes terday. Likely source is her rectovaginal fistula, and discussed the importance of getting this repaired. She is clinically improving, and has no abnormal vitals, so she does not need transfer at this time. Her son reports she has a surgeon in [place] who is just waiting for her to give the okay to proceed with surgery. We will attempt to get an appointment scheduled with that surgeon on discharge. (2) C. difficile colitis Problem: Acute Narrative: She was started on p.o. vancomycin overnight on 04/16/19. She feels like her diarrhea is slowing down. She has no abnormalities of her vitals, and her white blood cell count actually decreased to 2.0. (3) UTI (urinary tract infection) Problem: Acute Narrative: Likely due to her rectovaginal fistula. She was started on Rocephin on admission, and seems to be doing better. She had intractable back pain on admission, and had some urinary retention. Will remove the Kirby catheter today to see if she is able to urinate without the catheter. If not, and if the back pain recurs, it was due to urinary retention. (4) Pancytopenia Problem: Acute Narrative: New onset since admission. If it worsens, will obtain a peripheral smear and consult internal medicine. (5) Rectovaginal fistula Problem: Chronic Narrative: Discussed importance of getting her fistula fixed, as it is likely the source of both her UTI and bacteremia. She and her son both seem to agree that it is time to get it fixed. They have a surgeon in [place] who agreed to do the surgery and is just waiting for her to be ready. We will attempt to get her scheduled with this surgeon on discharge. (6) Acute on chronic renal failure Problem: Acute Narrative: Creatinine improved to 1.56, and GFR improved to 35. Both of these values are much better than any of the other values we have had here at our facility. (7) Abdominal pain Problem: Resolved Qualifiers: Abdominal location: generalized Qualified Code(s): R10.84 - Generalized abdominal pain Narrative: CT with oral contrast only on admission did not reveal acute abnormality. (8) Elevated alkaline phosphatase level Problem: Acute Narrative: Alk phos, AST, ALT were elevated yesterday, and all 3 have mildly improved this morning. (9) History of DVT (deep vein thrombosis) Problem: Chronic Narrative: She has been prescribed Xarelto for a few years after a single incident of left lower leg DVT. We will need to discuss risk versus benefits of continuing on discharge. With her immobility, she is at increased risk for clot development. (10) Diabetes mellitus Problem: Chronic (11) Rheumatoid arthritis Problem: Chronic (12) Hypokalemia Problem: Acute Narrative: Added 20 mEq KCl twice daily for potassium of 3.1. Recheck in the morning. (13) Intractable back pain Problem: Resolved
[2019-04-18] MEDS: VANCOMYCIN/WATER FOR INJ (PEG) 1.5 GM/300 ML BAG IV SCH (12:19)
[2019-04-18] MEDS: POTASSIUM CHLORIDE 20 MEQ TABLET.SA PO SCH (16:30)
[2019-04-18] MEDS: LIDOCAINE TP SCH (20:38)
[2019-04-18] MEDS: HYDROcodone/ACETAMINOPHEN 1 EACH TABLET PO PRN (22:49)
[2019-04-19] MEDS: VANCOMYCIN HCL 50 MG/ML BTL PO SCH ×4 (03:01→21:17)
[2019-04-19 06:31] LABS: Hematocrit 28.4 % (37.0-47.0); Hemoglobin 8.8 gm/dL (12.5-16.0); Mean Cell Volume 106.8 fl (78-100); Mean Corpuscular Hemoglobin 33.1 pg (27-31); Mean Platelet Volume 11.4 fl (8-12.5); Neutrophil # 2.1 K/mm3 (1.3-6.0); Neutrophil % 59.9 % (42-75.0); Platelet Count 74 K/mm3 (150-450); Red Blood Count 2.66 M/mm3 (4.2-5.4); Red Cell Distribution Width 16.1 % (11.5-14.0); White Blood Count 3.6 K/mm3 (4.0-10.5)
[2019-04-19 06:52] LABS: Anion Gap 13.5 mmol/L (6.8-13.8); BUN/Creatinine Ratio 25.5 (9.0-21.6); Bilirubin, Total 0.3 mg/dL (0.0-1.1); Ca. Corrected For Albumin 9.9 mg/dL (8.4-10.2); Calcium * 8.6 mg/dL (7.9-10.9); Carbon Dioxide 25.9 mmol/L (24-32.6); Potassium 3.4 mmol/L (3.4-4.6); Total Protein 6.2 gm/dL (6.2-8.2)
[2019-04-19] MEDS: HYDROcodone/ACETAMINOPHEN 1 EACH TABLET PO PRN ×4 (06:56→22:02)
[2019-04-19] MEDS: LEVOTHYROXINE SODIUM 112 MCG TABLET PO SCH (06:56)
[2019-04-19] MEDS: Menthol/Zinc Oxide [Calmoseptine Ointment] TP SCH ×2 (09:19→21:05)
[2019-04-19] MEDS: GABAPENTIN 100 MG CAPSULE PO SCH ×3 (09:19→17:56)
[2019-04-19] MEDS: BUMETANIDE 1 MG TABLET PO SCH (09:20)
[2019-04-19] MEDS: HYDROXYCHLOROQUINE SULFATE 200 MG TABLET PO SCH (09:20)
[2019-04-19] MEDS: POTASSIUM CHLORIDE 20 MEQ TABLET.SA PO SCH ×2 (09:20→17:56)
[2019-04-19] MEDS: amLODIPine BESYLATE 5 MG TABLET PO SCH (09:20)
--- NOTE | 2019-04-19 09:47 | PN ---
Subjective - Date and Time Seen Date: 04/19/19 Time: 09:43 Subjective Narrative: She hasn't been able to urinate since the kirby was removed yesterday, and her back pain is worse. She feels like her diarrhea may be getting better. Objective - Review of Systems Generalized/Overall Review: Denies: Fever Respiratory: Denies: Shortness of Breath Cardiac: Denies: Chest Pain Abdominal: Reports: Diarrhea. Denies: Vomiting Genitourinary Symptoms: Reports: Retention Musculoskeletal Complaints: Reports: Back Pain Skin: Reports: No Symptoms Reported - Vitals Vitals: Last Vital Signs Temp 36.2 C 04/19/19 06:38 Pulse 84 04/19/19 09:20 Resp 16 04/19/19 06:38 BP 122/48 04/19/19 09:20 Pulse Ox 99 04/19/19 06:38 - Abnormal Lab Findings Abnormal Lab Findings: Abnormal Lab Results 04/19/19 04/19/19 04/19/19 Range/Units 06:20 06:20 06:30 WBC 3.6 L D (4.0-10.5) K/mm3 RBC 2.66 L (4.2-5.4) M/mm3 Hgb 8.8 L (12.5-16.0) gm/dL Hct 28.4 L (37.0-47.0) % MCV 106.8 H (78-100) fl MCH 33.1 H (27-31) pg MCHC 31.0 L (32-36) g/dl RDW 16.1 H (11.5-14.0) % Plt Count 74 L (150-450) K/mm3 Immature Gran % (Auto) 2.30 H (0.001-0.429) % Immature Gran # (Auto) 0.08 H (0.000-0.0310) K/mm3 Monocytes % 12.7 H (0.0-9) % Lymphocytes # 0.78 L (1.5-3.5) k/mm3 Percent Retic 3.0 H (0.4-1.8) % Immature Retic Fraction 41.4 H (3.0-15.9) % Retic Hgb Content 41.0 H (29-35) pg BUN 41 H (3-23) mg/dL Creatinine 1.61 H (0.4-1.4) mg/dL Est GFR (Non-Af Amer) 34 L (60-130) mL/min BUN/Creatinine Ratio 25.5 H (9.0-21.6) Random Glucose 118 H (70-110) mg/dL AST 64 H (0-48) U/L Alkaline Phosphatase 463 H (50-170) U/L Albumin 2.0 L (3.4-5.0) gm/dl - Exam Constitutional: Present: Alert - appears uncomfortable, Morbidly obese Respiratory: Present: lungs clear, normal breath sounds, no respiratory distress Cardiovascular/Chest: Present: regular rate, rhythm Abdomen: Present: soft, obese, tender - generalized tenderness Extremity: Absent: lower extremity edema Skin Exam: Present: other - mild bruising of left lower leg Neurologic: Present: alert Cauti Physician Documentation - Urinary Catheter Management Urethral (Kirby) Date of Insertion: 04/16/19 Time of Insertion: 12:50 Date of Removal: 04/18/19 Time of Removal: 15:45 Assessment/Plan - Problems/Diagnosis (1) Bacteremia Problem: Acute Narrative: Blood cultures are growing Enterococcus faecalis. She had been given Vanco thus far, but will switch to ampicillin today to help protect her kidneys. She has been afebrile, and white blood cell count has not been elevated. Suspect that the source is due to her rectovaginal fistula. Her sed rate has been highly elevated at greater than 120, so we will also obtain an ultrasound of her pelvis to ensure she does not have an abscess. Dr. Alejandre was consulted to help manage this complicated patient, and appreciate his assistance. (2) C. difficile colitis Problem: Acute Narrative: P.o. vancomycin was started in the dispatch machine runner of 3 7 for positive C. difficile toxin. We will continue this every 6 hours for 10 days. (3) UTI (urinary tract infection) Problem: Acute Narrative: Urine culture is growing Klebsiella. She was given a dose of Rocephin in the ER on 04/16/19. The Rocephin was inadvertently not continued over the weekend, and was reordered this morning. This oversight was explained to the patient and her son. she had a kirby catheter until yesterday, but again developed urinary retention. (4) Pancytopenia Problem: Acute Narrative: No significant change from yesterday, but platelets did slightly decrease. Peripheral smear pending. (5) Rectovaginal fistula Problem: Chronic Narrative: She has seen a surgeon in [place] who agreed to do the surgery to repair her rectovaginal fistula, and is just waiting for her to be ready. We will attempt to get her scheduled with this surgeon on discharge. The fistula is the likely source of her UTI and bacteremia, and anticipate this will continue until the fistula is repaired. With her obesity and immobility, she may have a difficult time recovering from surgery, however. (6) Acute on chronic renal failure Problem: Resolved Narrative: Creatinine today of 1.61, which is essentially unchanged from yesterday's 1.56 level. GFR also is very similar, at 34 today. These values are better than levels we have recorded here at our facility over the last few months. Will change from vancomycin to ampicillin for her bacteremia, for renal protection. (7) Abdominal pain Problem: Chronic Qualifiers: Abdominal location: generalized Qualified Code(s): R10.84 - Generalized abdominal pain Narrative: CT abdomen/pelvis done with po contrast only on admission did not reveal source of abdominal pain. Suspect it is somewhat related to urinary retention. (8) Elevated alkaline phosphatase level Problem: Acute Narrative: Alk phos, AST, ALT continue to improve, at 463, 64, 60, respectively. (9) Urinary retention Problem: Acute (10) History of DVT (deep vein thrombosis) Problem: Chronic Narrative: Her son reports one DVT in her left leg about 3 years ago, and she's been on xarelto since then. She is at risk for clot currently, since she is immobile. Can restart xarelto. (11) Diabetes mellitus Problem: Chronic Narrative: Blood glucose has been in the 100's. Stopping metformin for GFR less than 40. (12) Rheumatoid arthritis Problem: Chronic Narrative: She takes mycophenolate and methotrexate at baseline. (13) Hypokalemia Problem: Resolved Narrative: K+ of 3.1 yesterday, and po KCl was started. Improved to 3.4 today. (14) Intractable back pain Problem: Chronic Narrative: Seems worse with urinary retention, so will place kirby catheter again today. (15) retirement resident Problem: Chronic Narrative: She was previously at [facility], but she would prefer not to return there. When she has been on appropriate antibiotics and her back pain is controlled, she can DC to facility, to see a surgeon about her rectovaginal fistula on an outpatient basis. However, with q6h dosing of ampicillin for bacteremia, she may need to be here for 2 weeks of IV abx, which would be through 05/01/19.
--- NOTE | 2019-04-19 10:11 | CONS ---
[facility] - General Date of Service: 04/19/19 Narrative: Ivette Shipman is a 69-year-old white female with past medical history of rheumatoid arthritis, rectovaginal fistula, diabetes mellitus type 2, chronic renal failure who was admitted on 04/16/2019 because of intractable low back pain. I am being consulted for her pancytopenia and an ESR of over 120 despite IV antibiotics. She also has C. difficile and is on Vanco Iv and PO. She was supposed to be on IV Rocephin but has not been receiving it since last Friday. She has had CT scan of her lumbar sacral spine in 03/26/2019 and 04/01/2019 which showed multilevel degenerative changes. She is not able to get an MRI because of a cochlear implant. She still complains of low back pain. She had to be straight cath last night for urinary retention. Source: patient, family - History of Present Illness Allergies/Adverse Reactions: Allergies Sulfa (Sulfonamide Antibiotics) Adverse Reaction (Verified 04/16/19 14:59) Home Medications: Home Medications Medication Instructions Recorded Last Taken Ascorbic Acid [Vitamin C] 500 mg PO DAILY 03/26/19 Unknown Aspirin [Aspirin EC] 81 mg PO DAILY 03/26/19 Unknown Atorvastatin Calcium [Lipitor] 10 mg PO DAILY 03/26/19 Unknown Bumetanide 1 mg PO DAILY 03/26/19 Unknown Cyanocobalamin (Vitamin B-12) 1,000 mcg PO DAILY 03/26/19 Unknown [Vitamin B-12] Folic Acid 0.8 mg PO DAILY 03/26/19 Unknown Hydroxychloroquine Sulfate 200 mg PO DAILY 03/26/19 Unknown Levothyroxine Sodium [Synthroid] 112 mcg PO DAILY 03/26/19 Unknown Lidocaine [Lidocaine Pain Relief] 1 ea TOPICAL HS 03/26/19 Unknown Multivitamin [One Daily] 1 ea PO DAILY 03/26/19 Unknown Pregabalin 200 mg PO TID 03/26/19 Unknown Rivaroxaban [Xarelto] 10 mg PO DAILY 03/26/19 Unknown Sennosides/Docusate Sodium 1 tab PO BID 03/26/19 Unknown [Senokot-S] amLODIPine BESYLATE [Norvasc] 5 mg PO DAILY 03/26/19 Unknown Polyethylene Glycol 3350 [Miralax] 17 gm PO DAILY PRN 04/01/19 Unknown metFORMIN HCL [Metformin HCl] 500 mg PO BID 04/01/19 Unknown tiZANidine HCL [Tizanidine HCl] 4 mg PO TID PRN 04/01/19 Unknown Acetaminophen 650 mg PO .Q6H PRN 04/16/19 Unknown Bisacodyl 10 mg RC DAILY PRN 04/16/19 Unknown Lidocaine HCl [Aspercreme] 76.5 gm TOPICAL QID PRN 04/16/19 Unknown Menthol/Zinc Oxide [Calmoseptine 71 gm TOPICAL BID 04/16/19 Unknown Ointment] Methotrexate Sodium [Methotrexate] 15 mg PO MO 04/16/19 Unknown Mycophenolate Mofetil [Cellcept] 500 mg PO 0600,1600 04/16/19 Unknown Saccharomyces Boulardii [Probiotic] 250 mg PO DAILY 04/16/19 Unknown Medications - Medications Current Medications: Current Medications Hydrocodone Bitart/Acetaminophen ([place] 5-325) 1 each PO Q4H PRN PRN Reason: Pain Stop: 05/16/19 16:22 Last Admin: 04/19/19 06:56 Dose: 1 each Documented by: Amlodipine Besylate (Norvasc) 5 mg PO DAILY [facility] Stop: 05/17/19 09:01 Last Admin: 04/19/19 09:20 Dose: 5 mg Documented by: Bumetanide (Bumex) 1 mg PO DAILY [facility] Stop: 05/17/19 09:01 Last Admin: 04/19/19 09:20 Dose: 1 mg Documented by: Gabapentin (Neurontin) 200 mg PO TID [facility] Stop: 05/16/19 17:01 Last Admin: 04/19/19 09:19 Dose: 200 mg Documented by: Hydroxychloroquine Sulfate (Plaquenil) 200 mg PO DAILY [facility] Stop: 05/17/19 09:01 Last Admin: 04/19/19 09:20 Dose: 200 mg Documented by: Sodium Chloride (Sodium Chloride 0.9%) 1,000 mls @ 175 mls/hr IV .Q5H43M PRN PRN Reason: HYDRATION Last Infusion: 04/17/19 06:37 Dose: Infused Documented by: Levothyroxine Sodium (Synthroid) 112 mcg PO DAILY@0700 [facility] Stop: 05/17/19 07:01 Last Admin: 04/19/19 06:56 Dose: 112 mcg Documented by: Lidocaine [Lidocaine (Pain Relief]) 1 ea TP HS [facility] Stop: 05/16/19 21:01 Last Admin: 04/18/19 20:38 Dose: Not Given Documented by: Menthol/Zinc Oxide [ Calmoseptine Ointment] 0 gm TP BID [facility] Stop: 05/16/19 21:01 Last Admin: 04/19/19 09:19 Dose: Not Given Documented by: Potassium Chloride (K-Dur) 20 meq PO BIDWM [facility] Stop: 05/18/19 17:01 Last Admin: 04/19/19 09:20 Dose: 20 meq Documented by: Vancomycin HCl (Vancomycin) 125 mg PO Q6H [facility]; Protocol Stop: 05/17/19 02:31 Last Admin: 04/19/19 09:17 Dose: 125 mg Documented by: Review of Systems - Review of Systems Generalized/Overall Review: Present: Weakness. Absent: Chills, Fever EENTM: Absent: Blurred Vision Respiratory: Absent: Cough, Shortness of Breath, Wheezing Cardiac: Absent: Chest Pain, Edema, Palpitations Abdominal: Absent: Nausea, Vomiting, Hematemesis Genitourinary: Absent: Urgency, Frequency Musculoskeletal: Present: Joint Pain, Back Pain Neurological: Absent: Headache Skin: Absent: Lesions, Rash Physical Examination - Exam Vital Signs: Vital Signs - Last Taken Temp 36.2 C 04/19/19 06:38 Pulse 84 04/19/19 09:20 Resp 16 04/19/19 06:38 BP 122/48 04/19/19 09:20 Pulse Ox 99 04/19/19 06:38 O2 Oxygen Delivery Method Room Air - Results and Findings: Narrative: Ivette Shipman was referred to me for pancytopenia and elevated ESR. Her pancytopenia most likely is due to sequestration/redistribution from sepsis. Would recommend sending slight for peripheral smear if not done yet. Will also recommend doing DIC panel although her pancytopenia is unlikely from consumption coagulaopathy at this time. Will add GGT to her labs for her elevyed Alkaline phostphatase. . Her elevated ESR likely is infectious rather than inflammatory. She does have C. difficile colitis, Klebsiella pneumonia UTI, enterococcus faecalis bacteremia. I discussed this with our pharmacist and withDr Thompson she will be restarted back on her Rocephin to cover for Klebsiella UTI, she will be on ampicillin for her enterococcus and will continue on her p.o. Vanco for her C. difficile. With her very elevated ESR will still need to consider discitis/vertebral osteomyelitis with her admitting diagnosis of intractable low back pain. She has had 2 CT scans in the past but will recommend plain lumbosacral x-ray for now. A complicated upper UTI like abscess/pyelonephritis was not see on Abd CTS. Air in her bladder could be due to infection or air from her colon. With her history of colo-vaginal fistula would recommend a pelvic ultrasound for now. I will defer echocardiogram as I do not see any clinical signs of endocarditis or hear a murmur. Lab/Microbiology results last 24 hrs: Abnormal/Pending Laboratory Last 24 HRS 04/19/19 04/19/19 04/19/19 06:30 06:20 06:20 WBC 3.6 L D RBC 2.66 L Hgb 8.8 L Hct 28.4 L MCV 106.8 H MCH 33.1 H MCHC 31.0 L RDW 16.1 H Plt Count 74 L Immature Gran % (Auto) 2.30 H Immature Gran # (Auto) 0.08 H Monocytes % 12.7 H Lymphocytes # 0.78 L Percent Retic 3.0 H Immature Retic Fraction 41.4 H Retic Hgb Content 41.0 H BUN 41 H Creatinine 1.61 H Est GFR (Non-Af Amer) 34 L BUN/Creatinine Ratio 25.5 H Random Glucose 118 H AST 64 H Alkaline Phosphatase 463 H Albumin 2.0 L Culture 04/16/19 13:41 Blood Culture - Final Blood Enterococcus Faecalis 04/16/19 12:10 Blood Culture - Final Blood Enterococcus Faecalis 04/16/19 Unknown Urine Culture - Final Urine,Clean Catch Klebsiella Pneumoniae - Assessments/Findings (1) Bacteremia Problem: Acute (2) UTI (urinary tract infection) Problem: Acute (3) C. difficile colitis Problem: Acute (4) Pancytopenia Problem: Acute (5) Elevated alkaline phosphatase level Problem: Acute (6) Diabetes mellitus Problem: Chronic (7) History of DVT (deep vein thrombosis) Problem: Chronic (8) Rectovaginal fistula Problem: Chronic (9) Rheumatoid arthritis Problem: Chronic (10) Acute on chronic renal failure Problem: Acute (11) Low back pain Problem: Acute Qualifiers: Chronicity: acute Back pain laterality: midline Sciatica presence: without sciatica Qualified Code(s): M54.5 - Low back pain
[2019-04-19] MEDS: AMPICILLIN SODIUM 2,000 MG in NORMAL SALINE 100 ML IV SCH ×3 (11:21→21:17)
[2019-04-19] MEDS ORDERED: METHOTREXATE SODIUM 2.5 MG TABLET PO SCH (12:30)
[2019-04-19] MEDS: RIVAROXABAN 20 MG TABLET PO SCH (13:10)
[2019-04-19] MEDS: LIDOCAINE TP SCH (21:05)
[2019-04-20] MEDS: VANCOMYCIN HCL 50 MG/ML BTL PO SCH ×4 (01:55→21:48)
[2019-04-20] MEDS: AMPICILLIN SODIUM 2,000 MG in NORMAL SALINE 100 ML IV SCH ×4 (04:35→21:52)
[2019-04-20] MEDS: HYDROcodone/ACETAMINOPHEN 1 EACH TABLET PO PRN ×4 (04:50→21:36)
[2019-04-20 06:57] LABS: Hematocrit 27.3 % (37.0-47.0); Hemoglobin 8.4 gm/dL (12.5-16.0); Mean Cell Volume 106.2 fl (78-100); Mean Corpuscular Hemoglobin 32.7 pg (27-31); Mean Corpuscular Hgb Conc 30.8 g/dl (32-36); Mean Platelet Volume 11.7 fl (8-12.5); Neutrophil # 3.1 K/mm3 (1.3-6.0); Neutrophil % 70.6 % (42-75.0); Red Blood Count 2.57 M/mm3 (4.2-5.4); Red Cell Distribution Width 16.2 % (11.5-14.0); White Blood Count 4.4 K/mm3 (4.0-10.5)
[2019-04-20 06:59] LABS: Platelet Count 75 K/mm3 (150-450)
[2019-04-20 07:05] LABS: Albumin * 1.9 gm/dl (3.4-5.0); BUN/Creatinine Ratio 23.7 (9.0-21.6); Bilirubin, Total 0.2 mg/dL (0.0-1.1); Ca. Corrected For Albumin 9.8 mg/dL (8.4-10.2); Calcium * 8.4 mg/dL (7.9-10.9); Carbon Dioxide 25.7 mmol/L (24-32.6); Potassium 3.7 mmol/L (3.4-4.6)
[2019-04-20] MEDS: LEVOTHYROXINE SODIUM 112 MCG TABLET PO SCH (07:23)
[2019-04-20] MEDS: Menthol/Zinc Oxide [Calmoseptine Ointment] TP SCH ×2 (09:19→21:52)
[2019-04-20] MEDS: POTASSIUM CHLORIDE 20 MEQ TABLET.SA PO SCH ×2 (09:19→17:18)
[2019-04-20] MEDS: RIVAROXABAN 20 MG TABLET PO SCH (09:19)
[2019-04-20] MEDS: GABAPENTIN 100 MG CAPSULE PO SCH ×3 (09:19→17:17)
[2019-04-20] MEDS: HYDROXYCHLOROQUINE SULFATE 200 MG TABLET PO SCH (09:19)
[2019-04-20] MEDS: BUMETANIDE 1 MG TABLET PO SCH (09:19)
[2019-04-20] MEDS: amLODIPine BESYLATE 5 MG TABLET PO SCH (09:19)
--- NOTE | 2019-04-20 09:54 | PN ---
Georges Note - Interim Date: 04/20/19 Time: 09:52 Narrative: 04/20/19 09:[address] Mackay- recommend I.D. consultation. Her WBC is back to normal. Her anemia is likely due to ACD. 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 her Abd. CTS showed fatty liver, calcified granulomas in the spleen but no mention of splenomegaly.
--- NOTE | 2019-04-20 13:41 | PN ---
Subjective - Date and Time Seen Date: 04/20/19 Time: 08:00 Subjective Narrative: Pt reports feeling "ok, I guess." Her back pain is better with the kirby in place. Diarrhea has slowed down. Objective - Review of Systems Generalized/Overall Review: Reports: Weakness. Denies: Fever Respiratory: Denies: Cough, Shortness of Breath Cardiac: Denies: Chest Pain Abdominal: Reports: Diarrhea. Denies: Vomiting Genitourinary Symptoms: Reports: No Symptoms Reported, Other - kirby in place Musculoskeletal Complaints: Reports: Back Pain Skin: Reports: No Symptoms Reported - Vitals Vitals: Last Vital Signs Temp 36.8 C 04/20/19 10:00 Pulse 78 04/20/19 10:47 Resp 16 04/20/19 10:00 BP 145/60 04/20/19 10:00 Pulse Ox 96 04/20/19 10:00 - Abnormal Lab Findings Abnormal Lab Findings: Abnormal Lab Results 04/19/19 04/20/19 04/20/19 Range/Units 12:38 06:30 06:30 RBC 2.57 L (4.2-5.4) M/mm3 Hgb 8.4 L (12.5-16.0) gm/dL Hct 27.3 L (37.0-47.0) % MCV 106.2 H (78-100) fl MCH 32.7 H (27-31) pg MCHC 30.8 L (32-36) g/dl RDW 16.2 H (11.5-14.0) % Plt Count 75 L (150-450) K/mm3 Immature Gran % (Auto) 1.60 H (0.001-0.429) % Immature Gran # (Auto) 0.07 H (0.000-0.0310) K/mm3 Lymphocytes % 14.3 L (20-51) % Monocytes % 9.9 H (0.0-9) % Eosinophils % 3.4 H (0.0-3.0) % Lymphocytes # 0.62 L (1.5-3.5) k/mm3 D-Dimer 2.06 H (0.19-0.49) ug/mL BUN 37 H (3-23) mg/dL Creatinine 1.56 H (0.4-1.4) mg/dL Est GFR (Non-Af Amer) 35 L (60-130) mL/min BUN/Creatinine Ratio 23.7 H (9.0-21.6) Random Glucose 127 H (70-110) mg/dL AST 58 H (0-48) U/L Alkaline Phosphatase 439 H (50-170) U/L Total Protein 6.0 L (6.2-8.2) gm/dL Albumin 1.9 L (3.4-5.0) gm/dl - Exam Constitutional: Present: Alert, No distress, Elderly, Morbidly obese Respiratory: Present: lungs clear, normal breath sounds - anterior exam only Cardiovascular/Chest: Present: regular rate, rhythm Abdomen: Present: soft, nontender, obese Extremity: Absent: lower extremity edema Neurologic: Present: alert Cauti Physician Documentation - Urinary Catheter Management Urethral (Kirby) Date of Insertion: 04/19/19 Time of Insertion: 10:35 Date of Removal: 04/18/19 Time of Removal: 15:45 Assessment/Plan - Problems/Diagnosis (1) Bacteremia Problem: Acute Narrative: Blood cultures are growing Enterococcus faecalis. Notes reviewed from her hospitalization at [place] from February 2019, which reveal she also had Enterococcus faecalis bacteremia during that admission. She did have negative blood cultures on 02/22/2019. She had been given Vanco until 04/19/19, and was switched to q6h ampicillin to help protect her kidneys. She has been afebrile, and white blood cell count has not been elevated. Suspect that the source is due to her rectovaginal fistula. Her sed rate has been highly elevated at greater than 120. Discussed her case with infectious disease specialist at [facility], who recommended higher level of care. Her vitals have been normal since admission. (2) C. difficile colitis Problem: Acute Narrative: Today is day 4 of p.o. vancomycin. She feels like her diarrhea is improving. (3) UTI (urinary tract infection) Problem: Acute Narrative: Urine culture is growing Klebsiella, sensitive to Rocephin. She was given a dose of Rocephin in the ER on 04/16/19. The Rocephin was inadvertently not continued over the weekend, and was restarted 04/19/19. This oversight was explained to the patient and her son. she had a kirby catheter until 04/18/19 but again developed urinary retention after it was removed. (4) Pancytopenia Problem: Chronic Narrative: Records reviewed from office visits from May 2018 show that she was pancytopenic and then. Her counts today are very similar to yesterday, with WBC of 4.4, hemoglobin of 8.4, and platelets at 75. (5) Rectovaginal fistula Problem: Chronic Narrative: Records review shows that she has had this rectovaginal fistula since 2018. She had a surgeon, Dr. Saldana at the [facility], who would fix her fistula, however she has not seen him in a year. Anticipate that this fistula is the source of these recurrent infections, and they will continue to occur unless she has it fixed. Her immobility makes her high risk for postsurgical complication. (6) Acute on chronic renal failure Problem: Resolved Narrative: Renal function has been okay. Creatinine 1.56, GFR of 35 today. These levels are the best levels she has had at our facility over the last couple of months. (7) Abdominal pain Problem: Chronic Qualifiers: Abdominal location: generalized Qualified Code(s): R10.84 - Generalized abdominal pain Narrative: CT abdomen pelvis done at admission with p.o. contrast only did not reveal significant abnormality. Ultrasound of her pelvis was attempted yesterday to assess for possible infection, and was nondiagnostic. She declined transvaginal ultrasound. (8) Elevated alkaline phosphatase level Problem: Acute Narrative: Continuing to trend down, with alk phos of 439, AST of 58, ALT of 52. (9) Urinary retention Problem: Acute (10) History of DVT (deep vein thrombosis) Problem: Chronic Narrative: Her son reports that she had a left lower extremity DVT approximately 3 years ago and has been on Xarelto ever since. She currently is at increased risk for clot formation given her immobility. Continue her Xarelto. (11) Diabetes mellitus Problem: Chronic Narrative: Blood glucose has been well controlled in the lower 100s. Metformin was stopped on admission due to GFR less than 40. She is not requiring insulin. (12) Rheumatoid arthritis Problem: Chronic Narrative: She is prescribed mycophenolate and methotrexate. Holding the mycophenolate due to infections, and she was given methotrexate yesterday, which she takes once weekly. (13) Hypokalemia Problem: Resolved Narrative: 20 mEq p.o. KCl was started this admission for potassium level of 3.1. She has recovered to 3.7 today. (14) Intractable back pain Problem: Chronic Narrative: Back pain improves with catheter placement, and is controlled with as needed [place]. I suspect her back pain is due to urinary retention. This is a new development not present prior to this recent admission. (15) custodial resident Problem: Chronic
--- NOTE | 2019-04-20 16:40 | PN ---
Georges Note - Interim Date: 04/20/19 Time: 16:38 Narrative: 04/20/19 16:38 Discussed her case with Dr. Cazares at the [facility]. He discussed her case with her colorectal surgeon, Dr. Saldana. Dr. Saldana recommended continuing current treatment here at our facility, and keep her on suppressive therapy until she can be seen in his office. Can transfer if her condition worsens.
[2019-04-20] MEDS: LIDOCAINE TP SCH (21:52)
[2019-04-21] MEDS: HYDROcodone/ACETAMINOPHEN 1 EACH TABLET PO PRN ×4 (01:40→21:33)
[2019-04-21] MEDS: VANCOMYCIN HCL 50 MG/ML BTL PO SCH ×4 (02:55→21:32)
[2019-04-21] MEDS: AMPICILLIN SODIUM 2,000 MG in NORMAL SALINE 100 ML IV SCH ×4 (02:56→21:34)
[2019-04-21] MEDS: LEVOTHYROXINE SODIUM 112 MCG TABLET PO SCH (07:13)
[2019-04-21 07:26] LABS: Hemoglobin 8.6 gm/dL (12.5-16.0); Mean Cell Volume 106.5 fl (78-100); Mean Corpuscular Hemoglobin 32.7 pg (27-31); Mean Corpuscular Hgb Conc 30.7 g/dl (32-36); Mean Platelet Volume 11.5 fl (8-12.5); Neutrophil # 2.6 K/mm3 (1.3-6.0); Neutrophil % 70.2 % (42-75.0); Platelet Count 84 K/mm3 (150-450); Red Blood Count 2.63 M/mm3 (4.2-5.4); Red Cell Distribution Width 16.6 % (11.5-14.0); White Blood Count 3.7 K/mm3 (4.0-10.5)
[2019-04-21 07:30] LABS: Albumin * 1.9 gm/dl (3.4-5.0); Anion Gap 12.2 mmol/L (6.8-13.8); BUN/Creatinine Ratio 23.6 (9.0-21.6); Bilirubin, Total 0.3 mg/dL (0.0-1.1); Ca. Corrected For Albumin 10.1 mg/dL (8.4-10.2); Calcium * 8.7 mg/dL (7.9-10.9); Carbon Dioxide 25.8 mmol/L (24-32.6); Total Protein 6.2 gm/dL (6.2-8.2)
--- NOTE | 2019-04-21 07:59 | PN ---
Subjective - Date and Time Seen Date: 04/21/19 Time: 07:59 Subjective Narrative: Patient reports not being able to sleep due to multiple interruptions. she feels tired overall. No new concerns. Objective - Review of Systems Generalized/Overall Review: Reports: Weakness. Denies: Fever Respiratory: Denies: Cough, Shortness of Breath Cardiac: Denies: Chest Pain, Edema Abdominal: Denies: Vomiting, Constipation Genitourinary Symptoms: Reports: Retention, Other - kirby Musculoskeletal Complaints: Reports: Back Pain Neurological: Reports: No Symptoms Reported - Vitals Vitals: Last Vital Signs Temp 36.8 C 04/21/19 07:52 Pulse 93 04/21/19 07:52 Resp 18 04/21/19 07:52 BP 141/56 04/21/19 07:52 Pulse Ox 100 04/21/19 07:52 - Abnormal Lab Findings Abnormal Lab Findings: Abnormal Lab Results 04/21/19 04/21/19 Range/Units 06:45 06:45 WBC 3.7 L (4.0-10.5) K/mm3 RBC 2.63 L (4.2-5.4) M/mm3 Hgb 8.6 L (12.5-16.0) gm/dL Hct 28.0 L (37.0-47.0) % MCV 106.5 H (78-100) fl MCH 32.7 H (27-31) pg MCHC 30.7 L (32-36) g/dl RDW 16.6 H (11.5-14.0) % Plt Count 84 L (150-450) K/mm3 Immature Gran % (Auto) 0.80 H (0.001-0.429) % Eosinophils % 4.1 H (0.0-3.0) % Lymphocytes # 0.74 L (1.5-3.5) k/mm3 BUN 38 H (3-23) mg/dL Creatinine 1.61 H (0.4-1.4) mg/dL Est GFR (Non-Af Amer) 34 L (60-130) mL/min BUN/Creatinine Ratio 23.6 H (9.0-21.6) Random Glucose 113 H (70-110) mg/dL AST 63 H (0-48) U/L Alkaline Phosphatase 395 H (50-170) U/L Albumin 1.9 L (3.4-5.0) gm/dl - Exam Constitutional: Present: Alert, No distress, Morbidly obese Respiratory: Present: normal breath sounds, no respiratory distress - anterior exam only Cardiovascular/Chest: Present: regular rate, rhythm Abdomen: Present: soft, tender - mild, diffuse Extremity: Absent: lower extremity edema Thoughts: Present: other - emotionally upset Cauti Physician Documentation - Urinary Catheter Management Urethral (Kirby) Date of Insertion: 04/19/19 Time of Insertion: 10:35 Date of Removal: 04/18/19 Time of Removal: 15:45 Assessment/Plan - Problems/Diagnosis (1) Bacteremia Problem: Acute Narrative: Blood cultures are growing Enterococcus faecalis. Notes reviewed from her hospitalization at [place] from February 2019, which reveal she also had Enterococcus faecalis bacteremia during that admission. She did have negative blood cultures on 02/22/2019. She had been given Vanco on admission, and was switched to q6h ampicillin 04/19/19 to help protect her kidneys. She has been afebrile, and white blood cell count has not been elevated. Suspect that the source is due to her rectovaginal fistula. Her sed rate has been highly elevated at greater than 120. Discussed her case with infectious disease specialist at [facility], who recommended higher level of care. Her vitals have been normal since admission, and she does not appear acutely ill. Will recheck blood cultures tomorrow. Medically, she is stable for DC to nursing facility, but the frequency of the IV ampicillin will be difficult for NH to do, so I anticipate she will remain here for the 10 day course of IV abx. (2) C. difficile colitis Problem: Acute Narrative: Today is day 5 of p.o. vancomycin. diarrhea improving. (3) UTI (urinary tract infection) Problem: Acute Narrative: Urine culture is growing Klebsiella, sensitive to Rocephin. She was given a dose of Rocephin in the ER on 04/16/19. The Rocephin was inadvertently not continued over the weekend, and was restarted 04/19/19. Will continue 5 days of treatment through 04/23/19. she had a kirby catheter until 04/18/19 but again developed urinary retention after it was removed, so it was replaced 04/19/19. (4) Rectovaginal fistula Problem: Chronic Narrative: Records review shows that she has had this rectovaginal fistula since 2018. She had a surgeon, Dr. Saldana at the [facility], who would fix her fistula, however she has not seen him in a year. Anticipate that this fistula is the source of these recurrent infections, and they will continue to occur unless she has it fixed. Her immobility makes her high risk for postsurgical complication. Discussed her case with the [facility] physician yesterday, who discussed the situation with Dr. Saldana. He recommends continuing current treatment, discharged to a nursing facility on suppressive therapy, then he will see her on an outpatient basis. (5) Pancytopenia Problem: Chronic Narrative: Records reviewed from office visits from May 2018 show that she was pancytopenic at that time, so this is potentially not a new problem. Her counts today are holding stable, with WBC of 3.7, hemoglobin of 8.6, and platelets at 84. (6) Acute on chronic renal failure Problem: Chronic Narrative: No change in creatinine and GFR from yesterday. (7) Abdominal pain Problem: Chronic Qualifiers: Abdominal location: generalized Qualified Code(s): R10.84 - Generalized abdominal pain Narrative: CT abdomen pelvis done at admission with p.o. contrast only did not reveal significant abnormality. Ultrasound of her pelvis was attempted yesterday to assess for possible infection, and was nondiagnostic. She declined transvaginal ultrasound. C. difficile is a possible source. (8) Elevated alkaline phosphatase level Problem: Acute Narrative: Continuing to trend down, with alk phos of 395, AST of 63, ALT of 48. (9) Urinary retention Problem: Acute Narrative: She has developed urinary retention of the last couple weeks. She has acute lower back pain and cannot urinate unless she has a Kirby in place. I suspect it is due to her known rectovaginal fistula. (10) History of DVT (deep vein thrombosis) Problem: Chronic Narrative: Her son reports that she had a left lower extremity DVT approximately 3 years ago and has been on Xarelto ever since. She currently is at increased risk for clot formation given her immobility. Continue her Xarelto. (11) Diabetes mellitus Problem: Chronic Narrative: Blood glucose has been well controlled in the lower 100s. Metformin was stopped on admission due to GFR less than 40. She is not requiring insulin. (12) Rheumatoid arthritis Problem: Chronic Narrative: She is prescribed make mycophenolate and methotrexate. The methotrexate was given on Mondays as per her home dose, but will hold mycophenolate for her multiple infections. (13) Hypokalemia Problem: Resolved Narrative: Potassium was 4.0 today, so we will stop KCl supplements. We will continue to check CMP daily. (14) Intractable back pain Problem: Chronic Narrative: Improved from admission. Suspected secondary to urinary retention. [place] also helps control pain. Chart review shows she has had chronic low back pain. She has not been mobile, and has not walked in several weeks, which is likely to exacerbate back pain. (15) Hypoalbuminemia Problem: Chronic Narrative: We will add boost shakes to meals. Albumin of 1.9 today. (16) assisted resident Problem: Chronic (17) Morbid obesity with BMI of 40.0-44.9, adult Problem: Acute
[2019-04-21] MEDS: Menthol/Zinc Oxide [Calmoseptine Ointment] TP SCH ×2 (09:02→21:53)
[2019-04-21] MEDS: RIVAROXABAN 20 MG TABLET PO SCH (09:03)
[2019-04-21] MEDS: HYDROXYCHLOROQUINE SULFATE 200 MG TABLET PO SCH (09:03)
[2019-04-21] MEDS: GABAPENTIN 100 MG CAPSULE PO SCH ×3 (09:03→16:46)
[2019-04-21] MEDS: BUMETANIDE 1 MG TABLET PO SCH (09:03)
[2019-04-21] MEDS: POTASSIUM CHLORIDE 20 MEQ TABLET.SA PO SCH (09:04)
[2019-04-21] MEDS: amLODIPine BESYLATE 5 MG TABLET PO SCH (09:04)
[2019-04-21] MEDS: LIDOCAINE TP SCH (21:53)
[2019-04-22] MEDS: VANCOMYCIN HCL 50 MG/ML BTL PO SCH ×4 (03:35→21:07)
[2019-04-22] MEDS: HYDROcodone/ACETAMINOPHEN 1 EACH TABLET PO PRN ×4 (03:37→21:49)
[2019-04-22] MEDS: AMPICILLIN SODIUM 2,000 MG in NORMAL SALINE 100 ML IV SCH ×4 (03:40→21:07)
[2019-04-22] MEDS: LEVOTHYROXINE SODIUM 112 MCG TABLET PO SCH (07:00)
[2019-04-22 07:04] LABS: Albumin * 1.8 gm/dl (3.4-5.0); Anion Gap 15.3 mmol/L (6.8-13.8); BUN/Creatinine Ratio 20.3 (9.0-21.6); Bilirubin, Total 0.3 mg/dL (0.0-1.1); Calcium * 8.6 mg/dL (7.9-10.9); Potassium 4.3 mmol/L (3.4-4.6)
[2019-04-22 07:11] LABS: Hemoglobin 8.2 gm/dL (12.5-16.0); Mean Cell Volume 106.7 fl (78-100); Mean Corpuscular Hemoglobin 32.4 pg (27-31); Mean Corpuscular Hgb Conc 30.4 g/dl (32-36); Mean Platelet Volume 11.6 fl (8-12.5); Platelet Count 98 K/mm3 (150-450); Red Blood Count 2.53 M/mm3 (4.2-5.4); Red Cell Distribution Width 16.4 % (11.5-14.0); White Blood Count 3.2 K/mm3 (4.0-10.5)
[2019-04-22 07:19] LABS: Total Cells Counted 100
[2019-04-22 07:42] LABS: Band 1 % (0-2.0); Eosinophil 3 % (0-3); Lymphocyte 11 % (20-51); Monocyte 3 % (0-9); Neutrophil 82 % (42-75); Neutrophil # 2.6 K/mm3 (1.3-6.0)
[2019-04-22 07:43] LABS: Platelet Estimate Decreased (NORMAL)
[2019-04-22 07:49] LABS: Anisocytosis 1+
--- NOTE | 2019-04-22 07:52 | PN ---
Subjective - Date and Time Seen Date: 04/22/19 Time: 07:52 Subjective Narrative: She was able to get more sleep last night. She admits to not drinking much fluids. She cannot tell when she is having bowel movements. Objective - Review of Systems Generalized/Overall Review: Denies: Fever Respiratory: Denies: Cough, Shortness of Breath Cardiac: Denies: Chest Pain, Edema Abdominal: Denies: Vomiting, Constipation Genitourinary Symptoms: Reports: Other - kirby placed Musculoskeletal Complaints: Reports: Back Pain Skin: Reports: No Symptoms Reported - Vitals Vitals: Last Vital Signs Temp 36.7 C 04/22/19 02:00 Pulse 84 04/22/19 04:00 Resp 18 04/22/19 02:00 BP 116/54 04/22/19 02:00 Pulse Ox 99 04/22/19 02:00 - Abnormal Lab Findings Abnormal Lab Findings: Abnormal Lab Results 04/22/19 04/22/19 Range/Units 06:38 06:38 WBC 3.2 L (4.0-10.5) K/mm3 RBC 2.53 L (4.2-5.4) M/mm3 Hgb 8.2 L (12.5-16.0) gm/dL Hct 27.0 L (37.0-47.0) % MCV 106.7 H (78-100) fl MCH 32.4 H (27-31) pg MCHC 30.4 L (32-36) g/dl RDW 16.4 H (11.5-14.0) % Plt Count 98 L (150-450) K/mm3 Neutrophils % (Manual) 82 H (42-75) % Lymphocytes % (Manual) 11 L (20-51) % Lymphocytes # (Manual) 0.4 L (1.5-3.5) k/mm3 Platelet Estimate Decreased L (NORMAL) Chloride 107 H (97-106) mmol/L Anion Gap 15.3 H (6.8-13.8) mmol/L BUN 43 H (3-23) mg/dL Creatinine 2.12 H D (0.4-1.4) mg/dL Est GFR (Non-Af Amer) 25 L D (60-130) mL/min Random Glucose 126 H (70-110) mg/dL AST 88 H (0-48) U/L Alkaline Phosphatase 387 H (50-170) U/L Total Protein 6.0 L (6.2-8.2) gm/dL Albumin 1.8 L (3.4-5.0) gm/dl - Exam Constitutional: Present: Alert, Morbidly obese Respiratory: Present: lungs clear - anterior exam, normal breath sounds Cardiovascular/Chest: Present: regular rate, rhythm Abdomen: Present: soft, nontender, other - kirby in place Extremity: Absent: lower extremity edema Appearance: Present: other - She appears more comfortable and less distressed than yesterday Eye contact: Present: good eye contact Cauti Physician Documentation - Urinary Catheter Management Urethral (Kirby) Date of Insertion: 04/19/19 Time of Insertion: 10:35 Date of Removal: 04/18/19 Time of Removal: 15:45 Assessment/Plan - Problems/Diagnosis (1) Bacteremia Problem: Acute Narrative: Blood cultures are growing Enterococcus faecalis. Notes reviewed from her hospitalization at [place] from February 2019, which reveal she also had Enterococcus faecalis bacteremia during that admission. She did have negative blood cultures on 02/22/2019, so it had cleared and recurred. She had been given Vanco on admission, and was switched to q6h ampicillin 04/19/19 to help protect her kidneys. today is day 6 of antibiotics. She has been afebrile, and white blood cell count has not been elevated. Suspect that the source is due to her rectovaginal fistula. Her sed rate has been highly elevated at greater than 120. Discussed her case with infectious disease specialist at [facility], who recommended higher level of care. Her vitals have been normal since admission, and she does not appear acutely ill. Also discussed with Rafi, and they recommend keeping her here to complete abx, unless she deteriorates. Rechecked blood cultures today. Medically, she is stable for DC to nursing facility, but the frequency of the IV ampicillin will be difficult for NH to do, so I anticipate she will remain here for the 10 day course of IV abx. Her creatinine increased to 2.12, which could be due to the ampicillin. increasing fluids today, and if that doesn't help her creatinine, will change ampicillin dosing. will only continue IV abx for 10 days, through 04/26/19, unless something changes. (2) C. difficile colitis Problem: Acute Narrative: started on po vanc on 04/17/19, so today is day 6 of 10. stools are soft, and not diarrhea. (3) UTI (urinary tract infection) Problem: Acute Narrative: Urine culture is growing Klebsiella, sensitive to Rocephin. She was given a dose of Rocephin in the ER on 04/16/19. The Rocephin was inadvertently not susie nued over the weekend, and was restarted 04/19/19. Will continue 5 days of treatment through 04/23/19. she had a kirby catheter until 04/18/19 but again developed urinary retention after it was removed, so it was replaced 04/19/19. (4) Rectovaginal fistula Problem: Chronic Narrative: Records review shows that she has had this rectovaginal fistula since 2018. She had a surgeon, Dr. Saldana at the [facility], who would fix her fistula, however she has not seen him in a year. Anticipate that this fistula is the source of these recurrent infections, and they will continue to occur unless she has it fixed. Her immobility makes her high risk for postsurgical complication. Discussed her case with the [facility] physician on 04/20/19 who discussed the situation with Dr. Saldana. He recommends continuing current treatment, discharged to a nursing facility on suppressive therapy, then he will see her on an outpatient basis. (5) Pancytopenia Problem: Chronic (6) Acute on chronic renal failure Problem: Chronic Narrative: Creatinine increased today from 1.61-2.12. This could be from the ampicillin, or could becoming from decreased p.o. intake. She admits to not drinking many fluids. We will give her a liter of saline today and recheck her creatinine tonight. If her renal function does not improve or worsens, will decrease her ampicillin frequency to every 12 hour dosing. (7) Abdominal pain Problem: Resolved Qualifiers: Abdominal location: generalized Qualified Code(s): R10.84 - Generalized abdominal pain Narrative: Not present today. Admission CT abdomen pelvis with oral contrast only did not reveal a source for abdominal pain. (8) Urinary retention Problem: Acute Narrative: She has developed urinary retention of the last couple weeks. She has acute lower back pain and cannot urinate unless she has a Kirby in place. I suspect it is due to her known rectovaginal fistula, and will persist until the fistula is repaired. will leave the kirby. (9) Cardiac murmur Problem: Chronic Narrative: PT reports she has had the murmur in the past, though I have not heard it. Echo at [facility] in February did not show vegitation. ID recommended repeat echo for the elevated ESR, and will order this. (10) Elevated alkaline phosphatase level Problem: Acute Narrative: Alk phos continues to trend down. AST not significantly changed, ALT is normal. (11) History of DVT (deep vein thrombosis) Problem: Chronic Narrative: Her son reports that she had a left lower extremity DVT approximately 3 years ago and has been on Xarelto ever since. She currently is at increased risk for clot formation given her immobility. Continue her Xarelto. (12) Diabetes mellitus Problem: Chronic Narrative: Blood glucose has been well controlled in the lower 100s. Metformin was stopped on admission due to GFR less than 40. She is not requiring insulin. (13) Rheumatoid arthritis Problem: Chronic Narrative: She is prescribed make mycophenolate and methotrexate. The methotrexate was given on Mondays as per her home dose, but will hold mycophenolate for her m ultiple infections. (14) Hypokalemia Problem: Resolved Narrative: Potassium was down to 3.1 earlier this admission, and KCl supplements were added. K+ has been normal, and the supplements stopped 04/21/19. Her K+ today is 4.3, and I suspect this may be due to her decline in renal function. Recheck in am. (15) Intractable back pain Problem: Chronic Narrative: Better with kirby in place, and controlled with norco prn. This is a baselien problem. Discussed importance of working with PT, to get stronger to be able to clear her infections. (16) Hypoalbuminemia Problem: Chronic Narrative: P.o. intake has been very poor. Added Ensure to meals yesterday. Albumin of 1.8 today. (17) sn[facility] resident Problem: Chronic (18) Morbid obesity with BMI of 40.0-44.9, adult Problem: Acute
[2019-04-22] MEDS ORDERED: NORMAL SALINE 1,000 ML IV PRN (08:09)
[2019-04-22] MEDS: BUMETANIDE 1 MG TABLET PO SCH (09:29)
[2019-04-22] MEDS: GABAPENTIN 100 MG CAPSULE PO SCH ×3 (09:29→16:53)
[2019-04-22] MEDS: Menthol/Zinc Oxide [Calmoseptine Ointment] TP SCH ×2 (09:29→21:07)
[2019-04-22] MEDS: RIVAROXABAN 20 MG TABLET PO SCH (09:30)
[2019-04-22] MEDS: HYDROXYCHLOROQUINE SULFATE 200 MG TABLET PO SCH (09:30)
[2019-04-22] MEDS: amLODIPine BESYLATE 5 MG TABLET PO SCH (09:30)
[2019-04-22 18:33] LABS: Anion Gap 16.9 mmol/L (6.8-13.8); BUN/Creatinine Ratio 16.5 (9.0-21.6); Calcium * 8.2 mg/dL (7.9-10.9); Carbon Dioxide 23.4 mmol/L (24-32.6); Estimated Creat Clear 21.2; Potassium 4.3 mmol/L (3.4-4.6)
[2019-04-22] MEDS: LIDOCAINE TP SCH (21:07)
[2019-04-23] MEDS: HYDROcodone/ACETAMINOPHEN 1 EACH TABLET PO PRN ×3 (02:45→21:41)
[2019-04-23] MEDS: VANCOMYCIN HCL 50 MG/ML BTL PO SCH ×4 (02:46→21:44)
[2019-04-23 06:41] LABS: Hematocrit 25.1 % (37.0-47.0); Mean Cell Volume 106.4 fl (78-100); Mean Corpuscular Hemoglobin 32.2 pg (27-31); Mean Corpuscular Hgb Conc 30.3 g/dl (32-36); Mean Platelet Volume 10.9 fl (8-12.5); Red Blood Count 2.36 M/mm3 (4.2-5.4); Red Cell Distribution Width 16.1 % (11.5-14.0); White Blood Count 3.1 K/mm3 (4.0-10.5)
[2019-04-23] MEDS: LEVOTHYROXINE SODIUM 112 MCG TABLET PO SCH (06:44)
[2019-04-23] MEDS: AMPICILLIN SODIUM 2,000 MG in NORMAL SALINE 100 ML IV SCH ×3 (06:45→20:55)
[2019-04-23 06:48] LABS: Platelet Count 96 K/mm3 (150-450)
[2019-04-23 06:49] LABS: Hemoglobin 7.6 gm/dL (12.5-16.0)
[2019-04-23 06:50] LABS: Total Cells Counted 100
[2019-04-23 06:54] LABS: Albumin * 1.8 gm/dl (3.4-5.0); Anion Gap 14.4 mmol/L (6.8-13.8); BUN/Creatinine Ratio 15.8 (9.0-21.6); Bilirubin, Total 0.4 mg/dL (0.0-1.1); Calcium * 8.6 mg/dL (7.9-10.9); Magnesium 1.4 mg/dL (1.2-2.8); Phosphorus 5.2 mg/dL (2.2-4.2); Potassium 4.4 mmol/L (3.4-4.6); Total Protein 5.8 gm/dL (6.2-8.2)
--- NOTE | 2019-04-23 07:23 | PN ---
Subjective - Date and Time Seen Date: 04/23/19 Time: 06:59 Subjective Narrative: Nursing called overnight for decreased urine output yesterday. She reports feeling better, however. Her son reports some depression, and wonders if there is anyone who can come talk to her. Objective - Review of Systems Generalized/Overall Review: Denies: Fever Respiratory: Denies: Shortness of Breath Cardiac: Denies: Edema Abdominal: Denies: Vomiting Genitourinary Symptoms: Reports: Retention, Other - kirby in place Musculoskeletal Complaints: Reports: Back Pain Neurological: Reports: Depressed - per son - Vitals Vitals: Last Vital Signs Temp 36.4 C 04/23/19 02:47 Pulse 101 H 04/23/19 02:47 Resp 20 04/23/19 02:47 BP 145/64 04/23/19 02:47 Pulse Ox 100 04/23/19 02:47 - Abnormal Lab Findings Abnormal Lab Findings: Abnormal Lab Results 04/22/19 04/22/19 04/22/19 Range/Units 06:38 06:38 18:20 WBC 3.2 L (4.0-10.5) K/mm3 RBC 2.53 L (4.2-5.4) M/mm3 Hgb 8.2 L (12.5-16.0) gm/dL Hct 27.0 L (37.0-47.0) % MCV 106.7 H (78-100) fl MCH 32.4 H (27-31) pg MCHC 30.4 L (32-36) g/dl RDW 16.4 H (11.5-14.0) % Plt Count 98 L (150-450) K/mm3 Neutrophils % (Manual) 82 H (42-75) % Lymphocytes % (Manual) 11 L (20-51) % Lymphocytes # (Manual) 0.4 L (1.5-3.5) k/mm3 Platelet Estimate Decreased L (NORMAL) Chloride 107 H (97-106) mmol/L Carbon Dioxide 23.4 L (24-32.6) mmol/L Anion Gap 15.3 H 16.9 H (6.8-13.8) mmol/L BUN 43 H 46 H (3-23) mg/dL Creatinine 2.12 H D 2.78 H D (0.4-1.4) mg/dL Est GFR (Non-Af Amer) 25 L D 18 L D (60-130) mL/min Random Glucose 126 H 132 H (70-110) mg/dL Phosphorus (2.2-4.2) mg/dL AST 88 H (0-48) U/L Alkaline Phosphatase 387 H (50-170) U/L Total Protein 6.0 L (6.2-8.2) gm/dL Albumin 1.8 L (3.4-5.0) gm/dl 04/23/19 04/23/19 Range/Units 06:37 06:37 WBC 3.1 L (4.0-10.5) K/mm3 RBC 2.36 L (4.2-5.4) M/mm3 Hgb 7.6 L* (12.5-16.0) gm/dL Hct 25.1 L (37.0-47.0) % MCV 106.4 H (78-100) fl MCH 32.2 H (27-31) pg MCHC 30.3 L (32-36) g/dl RDW 16.1 H (11.5-14.0) % Plt Count 96 L (150-450) K/mm3 Neutrophils % (Manual) (42-75) % Lymphocytes % (Manual) (20-51) % Lymphocytes # (Manual) (1.5-3.5) k/mm3 Platelet Estimate (NORMAL) Chloride 107 H (97-106) mmol/L Carbon Dioxide 23.0 L (24-32.6) mmol/L Anion Gap 14.4 H (6.8-13.8) mmol/L BUN 50 H (3-23) mg/dL Creatinine 3.16 H (0.4-1.4) mg/dL Est GFR (Non-Af Amer) 16 L (60-130) mL/min Random Glucose (70-110) mg/dL Phosphorus 5.2 H (2.2-4.2) mg/dL AST 83 H (0-48) U/L Alkaline Phosphatase 333 H (50-170) U/L Total Protein 5.8 L (6.2-8.2) gm/dL Albumin 1.8 L (3.4-5.0) gm/dl - Exam Constitutional: Present: Alert, Morbidly obese Respiratory: Present: normal breath sounds, no respiratory distress, No wheezing. Absent: rhonchi Cardiovascular/Chest: Present: regular rate, rhythm, systolic murmur Abdomen: Present: soft, nontender, obese Extremity: Absent: lower extremity edema Eye contact: Present: good eye contact Cauti Physician Documentation - Urinary Catheter Management Urethral (Kirby) Date of Insertion: 04/19/19 Time of Insertion: 10:35 Date of Removal: 04/18/19 Time of Removal: 15:45 Assessment/Plan - Problems/Diagnosis (1) Acute on chronic renal failure Problem: Acute Narrative: Creatinine continues to increase despite giving fluids and decreasing ampicillin dosing. Today's creatinine is 3.13, and GFR of 16, which are acute changes in the last 2 days. Phosphorus is elevated at 5.2. Her hgb is also decreasing. Her needs are now more than our facility can support, and transfer process has been initiated to transfer her to a facility with nephrology. (2) Bacteremia Problem: Acute Narrative: Blood cultures from 04/16/19 grew Enterococcus faecalis. Notes reviewed from her hospitalization at [place] from February 2019, which reveal she also had Enterococcus faecalis bacteremia during that admission. She did have negative blood cultures on 02/22/2019, so it had cleared and recurred. Repeat blood cultures obtained yesterday are thus far showing no growth. She had been given Vanco on admission, and was switched to q6h ampicillin 04/19/19 to help protect her kidneys. today is day 7 of IV antibiotics. She has been afebrile, and white blood cell count has not been elevated. Suspect that the source is due to her rectovaginal fistula. Her sed rate has been highly elevated at greater than 120. Repeat level drawn yesterday is pending. Discussed her case with infectious disease specialist at [facility], who recommended higher level of care. Her vitals have been normal since admission, and she does not appear acutely ill. Also discussed with Rafi, and they recommend keeping her here to complete abx, unless she deteriorates. Her creatinine increased to 2.12, so 1L NS administered 04/21, but creatinine continued to increase. Ampicillin dosing changed to q12h last night, and her creatinine continues to rise, to 3.16, and GFR of 16. Will only continue IV abx for 10 days, through 04/26/19, unless something changes. (3) C. difficile colitis Problem: Acute Narrative: started on po vanc on 04/17/19, so today is day 7 of 10. stools are soft, and not diarrhea. (4) UTI (urinary tract infection) Problem: Acute Narrative: Urine culture is growing Klebsiella, sensitive to Rocephin. She was given a dose of Rocephin in the ER on 04/16/19. The Rocephin was inadvertently not continued over the weekend, and was restarted 04/19/19. Today's dose will complete 5 days of treatment. she had a kirby catheter until 04/18/19 but again developed urinary retention after it was removed, so it was replaced 04/19/19. (5) Anemia Problem: Chronic Narrative: Hgb has trended down, and is now at 7.6. she is asymptomatic, and without cardiac problems, will not transfuse unless she becomes symptomatic. No current IV access, as it was lost overnight. (6) Rectovaginal fistula Problem: Chronic Narrative: Records review shows that she has had this rectovaginal fistula since 2018. She had a surgeon, Dr. Saldana at the [facility], who would fix her fistula, however she has not seen him in a year. Anticipate that this fistula i s the source of these recurrent infections, and they will continue to occur unless she has it fixed. Her immobility makes her high risk for postsurgical complication. Discussed her case with the [facility] physician on 04/20/19 who discussed the situation with Dr. Saldana. He recommends continuing current treatment, discharged to a nursing facility on suppressive therapy, then he will see her on an outpatient basis. However, with her worsening renal function, will transfer her to a facility with nephrology and infectious disease. (7) Pancytopenia Problem: Chronic Narrative: Records review show this is a chronic problem. WBC 3.1, hgb 7.6, platelets 96. (8) Urinary retention Problem: Acute Narrative: She has developed urinary retention of the last couple weeks. She has acute lower back pain and cannot urinate unless she has a Kirby in place. I suspect it is due to her known rectovaginal fistula, and will persist until the fistula is repaired. will leave the kirby. (9) Cardiac murmur Problem: Chronic Narrative: PT reports she has had the murmur in the past, though I have not heard it. Echo at [facility] in February did not show vegitation. Repeat echo done yesterday, has not yet resulted. (10) Abdominal pain Problem: Resolved Qualifiers: Abdominal location: generalized Qualified Code(s): R10.84 - Generalized abdominal pain Narrative: Not present today. Admission CT abdomen pelvis with oral contrast only did not reveal a source for abdominal pain. (11) Elevated alkaline phosphatase level Problem: Acute Narrative: continues to trend down. (12) History of DVT (deep vein thrombosis) Problem: Chronic Narrative: Her son reports that she had a left lower extremity DVT approximately 3 years ag o and has been on Xarelto ever since. She currently is at increased risk for clot formation given her immobility. Continue her Xarelto. (13) Diabetes mellitus Problem: Chronic Narrative: Blood glucose has been well controlled in the lower 100s. Metformin was stopped on admission due to GFR less than 40. She is not requiring insulin. (14) Rheumatoid arthritis Problem: Chronic (15) Hypokalemia Problem: Resolved Narrative: Potassium was down to 3.1 earlier this admission, and KCl supplements were added. K+ has been normal, and the supplements stopped 04/21/19. Her K+ today and yesterday is 4.3, and I suspect this may be due to her decline in renal function. (16) Intractable back pain Problem: Chronic Narrative: Better with kirby in place, and controlled with norco prn. This is a baseline problem that's been present for many months. She has been bedbound for the last month. Discussed importance of working with PT, to get stronger to be able to clear her infections. (17) Hypoalbuminemia Problem: Chronic Narrative: P.o. intake has been very poor. Added Ensure to meals 04/21/19. Albumin of 1.8 today. (18) Depression Problem: Suspected Narrative: Per her son, she has been exhibiting signs of depression. She usually is active and participates, but she has not been doing this lately. She is more "clingy" and cries every time he arrives or leaves. An antidepressant was maybe going to be started when she was at the senior living, but that hadn't happened before her admission. He is wondering if there is any counseling available. (19) [facility] resident Problem: Chronic (20) Morbid obesity with BMI of 40.0-44.9, adult Problem: Chronic
[2019-04-23 07:28] LABS: Eosinophil 1 % (0-3); Lymphocyte 24 % (20-51); Monocyte 3 % (0-9); Neutrophil 72 % (42-75); Neutrophil # 2.2 K/mm3 (1.3-6.0)
[2019-04-23 07:29] LABS: Platelet Estimate Decreased (NORMAL); RBC Morphology Normal (NORMAL)
[2019-04-23] MEDS: HYDROXYCHLOROQUINE SULFATE 200 MG TABLET PO SCH (07:59)
[2019-04-23] MEDS: amLODIPine BESYLATE 5 MG TABLET PO SCH (07:59)
[2019-04-23] MEDS: BUMETANIDE 1 MG TABLET PO SCH (07:59)
[2019-04-23] MEDS: GABAPENTIN 100 MG CAPSULE PO SCH ×3 (07:59→16:28)
[2019-04-23] MEDS: RIVAROXABAN 20 MG TABLET PO SCH (07:59)
[2019-04-23] MEDS: Menthol/Zinc Oxide [Calmoseptine Ointment] TP SCH ×2 (08:23→21:37)
--- NOTE | 2019-04-23 11:12 | ANES ---
Anesthesia Procedure Note Procedure Note: ANESTHESIA PROCEDURE NOTE Date of Procedure: [04/23/2019 Time of procedure: 11 AM. Performed by: JP Sherman CRNA, MSN Preprocedure diagnosis: Urinary retention, urinary tract infection, renal failure, intractable pain. Post procedure diagnosis: Same. Procedure: Venipuncture for IV access. Indications: Urinary tract infection, lack of IV access. Findings: The patient is in need of venous access for IV antibiotic therapy. She was waiting for venous access prior to transfer. There was very little visible access and multiple attempts had previously been unsuccessful to this point. There appeared to be a few fragile, small veins in the chest and upper arms that could perhaps receive a tiny IV catheter. Details of the procedure: The patient was prepped with Betadine and alcohol. A number 24-gauge IV was started in the right upper arm, flushed and secured. EBL: Minimal. Fluids: N/A. Specimen: N/A. Post procedure condition: The patient tolerated the procedure well. No complications were noted. Thank you for this consultation. Marcio Leon CRNA, ARNP, MSN
[2019-04-23 18:30] LABS: Hematocrit 26.2 % (37.0-47.0); Hemoglobin 8.1 gm/dL (12.5-16.0)
[2019-04-23 18:34] LABS: Anion Gap 16.2 mmol/L (6.8-13.8); BUN/Creatinine Ratio 12.8 (9.0-21.6); Calcium * 8.5 mg/dL (7.9-10.9); Carbon Dioxide 22.5 mmol/L (24-32.6); Estimated Creat Clear 14.5; Potassium 4.7 mmol/L (3.4-4.6)
[2019-04-23] MEDS: LIDOCAINE TP SCH (21:36)
[2019-04-24] MEDS: VANCOMYCIN HCL 50 MG/ML BTL PO SCH ×3 (01:40→14:57)
[2019-04-24] MEDS: HYDROcodone/ACETAMINOPHEN 1 EACH TABLET PO PRN ×2 (01:40→09:34)
[2019-04-24 06:28] LABS: Hematocrit 24.9 % (37.0-47.0); Mean Cell Volume 105.5 fl (78-100); Mean Corpuscular Hemoglobin 32.2 pg (27-31); Mean Corpuscular Hgb Conc 30.5 g/dl (32-36); Mean Platelet Volume 11.2 fl (8-12.5); Neutrophil # 2.1 K/mm3 (1.3-6.0); Neutrophil % 66.7 % (42-75.0); Platelet Count 94 K/mm3 (150-450); Red Blood Count 2.36 M/mm3 (4.2-5.4); Red Cell Distribution Width 16.2 % (11.5-14.0); White Blood Count 3.2 K/mm3 (4.0-10.5)
[2019-04-24 06:35] LABS: Hemoglobin 7.6 gm/dL (12.5-16.0)
[2019-04-24 06:46] LABS: BUN/Creatinine Ratio 12.4 (9.0-21.6); Carbon Dioxide 21.6 mmol/L (24-32.6); Potassium 4.5 mmol/L (3.4-4.6)
[2019-04-24 06:47] LABS: Albumin * 1.7 gm/dl (3.4-5.0); Anion Gap 16.9 mmol/L (6.8-13.8); Bilirubin, Total 0.3 mg/dL (0.0-1.1); Ca. Corrected For Albumin 9.9 mg/dL (8.4-10.2); Calcium * 8.4 mg/dL (7.9-10.9)
[2019-04-24] MEDS: LEVOTHYROXINE SODIUM 112 MCG TABLET PO SCH (08:08)
[2019-04-24] MEDS: AMPICILLIN SODIUM 2,000 MG in NORMAL SALINE 100 ML IV SCH (08:10)
[2019-04-24] MEDS: GABAPENTIN 100 MG CAPSULE PO SCH ×2 (10:54→14:57)
[2019-04-24] MEDS: HYDROXYCHLOROQUINE SULFATE 200 MG TABLET PO SCH (10:54)
[2019-04-24] MEDS: amLODIPine BESYLATE 5 MG TABLET PO SCH (10:55)
[2019-04-24] MEDS: Menthol/Zinc Oxide [Calmoseptine Ointment] TP SCH (10:55)
[2019-04-24] MEDS: RIVAROXABAN 20 MG TABLET PO SCH (11:03)
[2019-04-24 11:52] LABS: Iron 60 mcg/dL (35-120); Transferrin Sat. (% Sat.) 42 % (15-55)
[2019-04-24 12:30] LABS: Folate 7.8 ng/mL (8.6-58.9)
[2019-04-24] MEDS: BUMETANIDE 1 MG TABLET PO SCH (15:00)
[2019-04-24 16:52] LABS: Urine Bilirubin Negative (NEGATIVE); Urine Blood 25 /ul (NEGATIVE); Urine Ketone Negative (NEGATIVE); Urine Nitrite Negative (NEGATIVE); Urine Protein 30 mg/dL (NEGATIVE); Urine Specific Gravity 1.025 SP.GR. (1.005-1.010); Urine Urobilinogen Normal (NORMAL); Urine pH 5.5 pH (5.0-7.0)
--- NOTE | 2019-04-24 16:55 | DS ---
(1) Bacteremia Problem: Acute (2) C. difficile colitis Problem: Acute (3) Elevated alkaline phosphatase level Problem: Acute (4) UTI (urinary tract infection) Problem: Acute Qualifiers: Urinary tract infection type: acute cystitis Hematuria presence: without hematuria Qualified Code(s): N30.00 - Acute cystitis without hematuria (5) Urinary retention Problem: Acute (6) Diabetes mellitus Problem: Chronic Qualifiers: Diabetes mellitus type: type 2 Diabetes mellitus long wall mining machine helper insulin use: with group home use Diabetes mellitus complication status: with hyperglycemia Qualified Code(s): E11.65 - Type 2 diabetes mellitus with hyperglycemia; Z79.4 - snf (current) use of insulin (7) Hypoalbuminemia Problem: Chronic (8) Pancytopenia Problem: Chronic (9) Rectovaginal fistula Problem: Chronic (10) Rheumatoid arthritis Problem: Chronic Qualifiers: Rheumatoid arthritis location: multiple sites Rheumatoid factor presence: with rheumatoid factor Qualified Code(s): M05.79 - Rheumatoid arthritis with rheumatoid factor of multiple sites without organ or systems involvement (11) Depression Problem: Suspected Qualifiers: Depression Type: major depressive disorder Major depression recurrence: recurrent Active/Remission status: currently active Major depression episode severity: moderate Qualified Code(s): F33.1 - Major depressive disorder, recurrent, moderate Date of Discharge:: 04/24/19 Hospital Course: Pt with PMHx of rectovaginal fistula was admitted to our facility on 04/16/19 after presenting for intractable back pain. This was her 3rd ED visit to [facility] in the last couple of weeks. No source of the back pain was found, but her pain improved with kirby catheter placement. She'd develop urinary retention recently, and was unable to urinate without the catheter. Multiple medical problems were managed during her stay, as below. (1) Acute on chronic renal failure Initially, she had an acute kidney injury with creatinine around 2.0, which improved. However, around 04/20, her renal function acutely worsened, with creatinine on 04/22 of 3.13, and GFR of 16. Phosphorus is elevated at 5.2. Her hgb is also decreasing. Her needs progressed to more than our facility can support, and transfer process has been initiated to transfer her to the [facility] with Dr. Cazares. (2) Bacteremia Blood cultures from 04/16/19 grew Enterococcus faecalis. Notes reviewed from her hospitalization at [facility] from February 2019, which reveal she also had Enterococcus faecalis bacteremia during that admission. She did have negative blood cultures on 02/22/2019, so it had cleared and recurred. Repeat blood cultures obtained yesterday are thus far showing no growth. She had been given Vanco on admission, and was switched to q6h ampicillin 04/19/19 to help protect her kidneys. today is day 7 of IV antibiotics. She has been afebrile, and white blood cell count has not been elevated. Suspect that the source is due to her rectovaginal fistula. Her sed rate has been highly elevated at greater than 120. Repeat level drawn yesterday is pending. Discussed her case with infectious disease specialist at [facility], who recommended higher level of care. Her vitals have been normal since admission, and she does not appear acutely ill. Also discussed with [facility], and they recommend keeping her here to complete abx, unless she deteriorates. Her creatinine increased to 2.12, so 1L NS administered 04/21, but creatinine continued to increase. Ampicillin dosing changed to q12h on 04/21, and her creatinine continues to rise, to 3.16, and GFR of 16. Will only continue IV abx for 10 days, through 04/26/19, unless something changes. (3) C. difficile colitis started on po vanc on 04/17/19. stools are soft, and not diarrhea. (4) UTI (urinary tract infection) Urine culture is growing Klebsiella, sensitive to Rocephin. She was given a dose of Rocephin in the ER on 04/16/19. The Rocephin was inadvertently not continued over the weekend, and was restarted 04/19/19. Completed 5 days of treatment on 04/22. she had a kirby catheter until 04/18/19 but again developed urinary retention after it was removed, so it was replaced 04/19/19. (5) Anemia Hgb trended down, and is now to 7.6. she was asymptomatic, and without cardiac problems, did not transfuse. (6) Rectovaginal fistula Records review shows that she has had this rectovaginal fistula since 2018. She had a surgeon, Dr. Saldana at the [facility], who would fix her fistula, however she has not seen him in a year. Anticipate that this fistula is the source of these recurrent infections, and they will continue to occur unless she has it fixed. Her immobility makes her high risk for postsurgical complication. (7) Pancytopenia Records review show this is a chronic problem. WBC 3.1, hgb 7.6, platelets 96. (8) Urinary retention She has developed urinary retention of the last couple weeks. She has acute lower back pain and cannot urinate unless she has a Kirby in place. I suspect it is due to her known rectovaginal fistula, and will persist until the fistula is repaired. will leave the kirby. (9) Cardiac murmur Narrative: PT reports she has had the murmur in the past, though I have not heard it. Echo at [facility] in February did not show vegitation. Repeat echo done 04/21, has not yet resulted. (12) History of DVT (deep vein thrombosis) Her son reports that she had a left lower extremity DVT approximately 3 years ago and has been on Xarelto ever since. She currently is at increased risk for clot formation given her immobility. (13) Diabetes mellitus Blood glucose has been well controlled in the lower 100s. Metformin was stopped on admission due to GFR less than 40. She is not requiring insulin. (14) Rheumatoid arthritis Methotrexate administered on Mondays. Holding mycophenolate, due to her infections. Hypokalemia Potassium was down to 3.1 earlier this admission, and KCl supplements were added. K+ has been normal, and the supplements stopped 04/21/19. (16) Intractable back pain Better with kirby in place, and controlled with norco prn. This is a baseline problem that's been present for many months. She has been bedbound for the last month. (17) Hypoalbuminemia P.o. intake has been very poor. Added Ensure to meals 04/21/19. Albumin of 1.8. (18) Depression Per her son, she has been exhibiting signs of depression. She usually is active and participates, but she has not been doing this lately. She is more "clingy" and cries every time he arrives or leaves. An antidepressant was maybe going to be started when she was at the group home, but that hadn't happened before her admission. insemination worker was asked to speak with her. (19) [facility] resident Problem: Chronic (20) Morbid obesity with BMI of 40.0-44.9, adult Problem: Chronic Ivette has had progressive renal failure with a creatinine at 4.65 and EGFR down to 10 today. There is also elevated liver enzymes but no obstruction as bilirubin is normal. The ALT is normal but the AST and alkaline phosphatase are both elevated. She has a pancytopenia and today's hemoglobin is 7.6 g. Platelets are 94,000 and the white count is 3200. Dr. Mackay has been attempting to transfer this patient for several days but because of lack of bed space the [facility] has not been able to accept her. They did call this afternoon and have accepted her. I spoke with Dr.Saed Rusty MD who agreed to accept her in transfer today. Procedures Performed: none Results and Findings: Pending Mircobiology Results 04/22/19 07:10 Blood Blood Culture - Preliminary NO GROWTH AFTER 48 HOURS 04/22/19 06:38 Blood Blood Culture - Preliminary NO GROWTH AFTER 48 HOURS Lab Pending Results 04/16/19 12:13: WBC 5.7, RBC 2.91 L, Hgb 9.6 L, Hct 30.3 L, MCV 104.1 H, MCH 33.0 H, MCHC 31.7 L, RDW 15.3 H, Plt Count 140 L, MPV 11.3, Immature Gran % (Auto) 0.70 H, Immature Gran # (Auto) 0.04 H, Neutrophils % 86.3 H, Lymphocytes % 9.5 L, Monocytes % 2.6, Eosinophils % 0.5, Basophils % 0.4, Nucleated RBC % 0.0, Neutrophils # 4.9, Lymphocytes # 0.54 L, Monocytes # 0.2, Eosinophils # 0.0, Absolute Basophils 0.0 04/16/19 12:13: ESR 115 H 04/16/19 12:13: Sodium 135, Plasma Sodium 136, Potassium 4.0, Chloride 100, Carbon Dioxide 27.1, Anion Gap 11.9, BUN 65 H, Creatinine 2.07 H D, Est GFR (Non-Af Amer) 25 L D, BUN/Creatinine Ratio 31.4 H, Random Glucose 171 H, Calcium 8.9, Calcium Adj for Albumin 9.9, Total Bilirubin 0.4, AST 69 H, ALT 61, Alkaline Phosphatase 201 H, C-Reactive Prot, Quant 5.2 H, Total Protein 7.0, Albumin 2.3 L 04/16/19 12:13: Lactic Acid, Venous 1.5 04/16/19 13:02: Urine Color Yellow, Urine Appearance Clear, Urine pH 6.0, Ur Specific Peyton 1.015, Urine Protein Negative, Urine Glucose (UA) Negative, Urine Ketones Negative, Urine Blood 5 H, Urine Nitrate Negative, Urine Bilirubin Negative, Urine Urobilinogen Normal, Ur Leukocyte Esterase 75 H, Urine RBC None seen, Urine WBC 10-25 H, Ur Epithelial Cells 0-5, Urine Bacteria 2+ H, Urine Culture Comments Culture to follow 04/16/19 13:32: Procalcitonin 0.22 04/17/19 00:40: Stl C.difficile Tox A&B Positive H 04/17/19 07:24: ESR Greater than 120 H 04/17/19 07:24: Sodium 138, Plasma Sodium 138, Potassium 3.5, Chloride 103, Carbon Dioxide 25.6, Anion Gap 12.9, BUN 58 H, Creatinine 1.78 H, Est GFR (Non- Af Amer) 30 L, BUN/Creatinine Ratio 32.6 H, Random Glucose 109 D, Calcium 8.7, Calcium Adj for Albumin 9.9, Total Bilirubin 0.5, AST 129 H, ALT 84 H, Alkaline Phosphatase 604 H, Total Protein 6.4, Albumin 2.1 L 04/18/19 07:15: WBC 2.0 L D, RBC 2.95 L, Hgb 9.7 L, Hct 31.1 L, MCV 105.4 H, MCH 32.9 H, MCHC 31.2 L, RDW 15.6 H, Plt Count 80 L, MPV 12.0, Immature Gran % (Auto) 2.90 H, Immature Gran # (Auto) 0.06 H, Neutrophils % 59.9, Lymphocytes % 23.0, Monocytes % 10.8 H, Eosinophils % 2.9, Basophils % 0.5, Nucleated RBC % 0.0, Neutrophils # 1.2 L, Lymphocytes # 0.47 L, Monocytes # 0.2, Eosinophils # 0.1, Absolute Basophils 0.0 04/18/19 07:15: Sodium 139, Plasma Sodium 139, Potassium 3.1 L, Chloride 105, Carbon Dioxide 26.2, Anion Gap 10.9, BUN 45 H, Creatinine 1.56 H, Est GFR (Non- Af Amer) 35 L, BUN/Creatinine Ratio 28.8 H, Random Glucose 106, Calcium 8.6, Calcium Adj for Albumin 9.8, Total Bilirubin 0.4, AST 89 H, ALT 73 H, Alkaline Phosphatase 518 H, Total Protein 6.2, Albumin 2.1 L 04/19/19 06:20: WBC 3.6 L D, RBC 2.66 L, Hgb 8.8 L, Hct 28.4 L, MCV 106.8 H, MCH 33.1 H, MCHC 31.0 L, RDW 16.1 H, Plt Count 74 L, MPV 11.4, Immature Gran % (Auto) 2.30 H, Immature Gran # (Auto) 0.08 H, Neutrophils % 59.9, Lymphocytes % 22.0, Monocytes % 12.7 H, Eosinophils % 2.8, Basophils % 0.3, Nucleated RBC % 0.0, Neutrophils # 2.1, Lymphocytes # 0.78 L, Monocytes # 0.5, Eosinophils # 0.1, Absolute Basophils 0.0 04/19/19 06:20: Sodium 140, Plasma Sodium 140, Potassium 3.4, Chloride 104, Carbon Dioxide 25.9, Anion Gap 13.5, BUN 41 H, Creatinine 1.61 H, Est GFR (Non- Af Amer) 34 L, BUN/Creatinine Ratio 25.5 H, Random Glucose 118 H, Calcium 8.6, Calcium Adj for Albumin 9.9, Total Bilirubin 0.3, AST 64 H, ALT 60, Alkaline Phosphatase 463 H, Total Protein 6.2, Albumin 2.0 L 04/19/19 06:25: Peripheral Blood Smear Smear sent to path. 04/19/19 06:30: Absolute Retic 0.0782, Percent Retic 3.0 H, Immature Retic Fraction 41.4 H, Retic Hgb Content 41.0 H 04/19/19 12:38: Fibrinogen 422 H 04/19/19 12:38: D-Dimer 2.06 H 04/20/19 06:30: WBC 4.4 D, RBC 2.57 L, Hgb 8.4 L, Hct 27.3 L, MCV 106.2 H, MCH 32.7 H, MCHC 30.8 L, RDW 16.2 H, Plt Count 75 L, MPV 11.7, Immature Gran % (Auto) 1.60 H, Immature Gran # (Auto) 0.07 H, Neutrophils % 70.6, Lymphocytes % 14.3 L, Monocytes % 9.9 H, Eosinophils % 3.4 H, Basophils % 0.2, Nucleated RBC % 0.0, Neutrophils # 3.1, Lymphocytes # 0.62 L, Monocytes # 0.4, Eosinophils # 0.2, Absolute Basophils 0.0 04/20/19 06:30: Sodium 141, Plasma Sodium 141, Potassium 3.7, Chloride 106, Carbon Dioxide 25.7, Anion Gap 13.0, BUN 37 H, Creatinine 1.56 H, Est GFR (Non- Af Amer) 35 L, BUN/Creatinine Ratio 23.7 H, Random Glucose 127 H, Calcium 8.4, Calcium Adj for Albumin 9.8, Total Bilirubin 0.2, AST 58 H, ALT 52, Alkaline Phosphatase 439 H, Total Protein 6.0 L, Albumin 1.9 L 04/21/19 06:45: WBC 3.7 L, RBC 2.63 L, Hgb 8.6 L, Hct 28.0 L, MCV 106.5 H, MCH 32.7 H, MCHC 30.7 L, RDW 16.6 H, Plt Count 84 L, MPV 11.5, Immature Gran % (Auto) 0.80 H, Immature Gran # (Auto) 0.03, Neutrophils % 70.2, Lymphocytes % 20.0, Monocytes % 4.6, Eosinophils % 4.1 H, Basophils % 0.3, Nucleated RBC % 0.0, Neutrophils # 2.6, Lymphocytes # 0.74 L, Monocytes # 0.2, Eosinophils # 0.2, Absolute Basophils 0.0 04/21/19 06:45: Sodium 139, Plasma Sodium 139, Potassium 4.0, Chloride 105, Carbon Dioxide 25.8, Anion Gap 12.2, BUN 38 H, Creatinine 1.61 H, Est GFR (Non- Af Amer) 34 L, BUN/Creatinine Ratio 23.6 H, Random Glucose 113 H, Calcium 8.7, Calcium Adj for Albumin 10.1, Total Bilirubin 0.3, AST 63 H, ALT 48, Alkaline Phosphatase 395 H, Total Protein 6.2, Albumin 1.9 L 04/22/19 06:38: WBC 3.2 L, RBC 2.53 L, Hgb 8.2 L, Hct 27.0 L, MCV 106.7 H, MCH 32.4 H, MCHC 30.4 L, RDW 16.4 H, Plt Count 98 L, MPV 11.6, Neutrophils % (Manual) 82 H, Band Neuts % (Manual) 1, Lymphocytes % (Manual) 11 L, Monocytes % (Manual) 3, Eosinophils % (Manual) 3, Neutrophils # (Manual) 2.6, Lymphocytes # (Manual) 0.4 L, Monocytes # (Manual) 0.1, Eosinophils # (Manual) 0.1, Nucleated RBCs 1.0, Platelet Estimate Decreased L, Anisocytosis 1+ 04/22/19 06:38: Sodium 142, Plasma Sodium 142, Potassium 4.3, Chloride 107 H, Carbon Dioxide 24.0, Anion Gap 15.3 H, BUN 43 H, Creatinine 2.12 H D, Est GFR (Non-Af Amer) 25 L D, BUN/Creatinine Ratio 20.3, Random Glucose 126 H, Calcium 8.6, Calcium Adj for Albumin 10.0, Total Bilirubin 0.3, AST 88 H, ALT 56, Alkaline Phosphatase 387 H, Total Protein 6.0 L, Albumin 1.8 L 04/22/19 18:20: Sodium 140, Plasma Sodium 141, Potassium 4.3, Chloride 104, Carbon Dioxide 23.4 L, Anion Gap 16.9 H, BUN 46 H, Creatinine 2.78 H D, Est GFR (Non-Af Amer) 18 L D, BUN/Creatinine Ratio 16.5, Random Glucose 132 H, Calcium 8.2 04/23/19 06:37: ESR 119 H 04/23/19 06:37: Sodium 140, Plasma Sodium 140, Potassium 4.4, Chloride 107 H, Carbon Dioxide 23.0 L, Anion Gap 14.4 H, BUN 50 H, Creatinine 3.16 H, Est GFR (Non-Af Amer) 16 L, BUN/Creatinine Ratio 15.8, Random Glucose 91 D, Calcium 8.6, Calcium Adj for Albumin 10.0, Phosphorus 5.2 H, Magnesium 1.4, Total Bilirubin 0.4, AST 83 H, ALT 53, Alkaline Phosphatase 333 H, Total Protein 5.8 L, Albumin 1.8 L 04/23/19 06:37: WBC 3.1 L, RBC 2.36 L, Hgb 7.6 L*, Hct 25.1 L, MCV 106.4 H, MCH 32.2 H, MCHC 30.3 L, RDW 16.1 H, Plt Count 96 L, MPV 10.9, Neutrophils % (Manual) 72, Lymphocytes % (Manual) 24, Monocytes % (Manual) 3, Eosinophils % (Manual) 1, Neutrophils # (Manual) 2.2, Lymphocytes # (Manual) 0.7 L, Monocytes # (Manual) 0.1, Eosinophils # (Manual) 0.0, Platelet Estimate Decreased L, RBC Morphology Normal 04/23/19 18:22: Hgb 8.1 L, Hct 26.2 L 04/23/19 18:22: Sodium 137, Plasma Sodium 137, Potassium 4.7 H, Chloride 103, Carbon Dioxide 22.5 L, Anion Gap 16.2 H, BUN 52 H, Creatinine 4.07 H D, Est GFR (Non-Af Amer) 12 L D, BUN/Creatinine Ratio 12.8, Random Glucose 121 H D, Calcium 8.5 04/24/19 06:16: WBC 3.2 L, RBC 2.36 L, Hgb 7.6 L*, Hct 24.9 L, MCV 105.5 H, MCH 32.2 H, MCHC 30.5 L, RDW 16.2 H, Plt Count 94 L, MPV 11.2, Immature Gran % ( Auto) 0.60 H, Immature Gran # (Auto) 0.02, Neutrophils % 66.7, Lymphocytes % 20.3, Monocytes % 7.0, Eosinophils % 4.4 H, Basophils % 1.0, Nucleated RBC % 0.0, Neutrophils # 2.1, Lymphocytes # 0.64 L, Monocytes # 0.2, Eosinophils # 0.1, Absolute Basophils 0.0 04/24/19 06:16: Sodium 138, Plasma Sodium 138, Potassium 4.5, Chloride 104, Carbon Dioxide 21.6 L, Anion Gap 16.9 H, BUN 57 H, Creatinine 4.60 H D, Est GFR (Non-Af Amer) 10 L, BUN/Creatinine Ratio 12.4, Random Glucose 91, Calcium 8.4, Calcium Adj for Albumin 9.9, Total Bilirubin 0.3, AST 79 H, ALT 54, Alkaline Phosphatase 342 H, Total Protein 6.0 L, Albumin 1.7 L 04/24/19 06:16: Ferritin 695 H, Vitamin B12 1937 H, Folate 7.8 L 04/24/19 06:16: Iron 60, TIBC 143 L, Transferrin % Sat 42 Discharge Location: [facility] Disposition: Short Term Hospital Inpatient Condition: Fair Face to Face Encounter completed per [facility] Guidelines: No Discharge Activity: Activity as tolerated Discharge Diet: Renal Failure Complete Home Medications List: Complete Home Medication List: Cyanocobalamin (Vitamin B-12) [Vitamin B-12] 1,000 mcg PO DAILY 03/26/19 Folic Acid 0.8 mg PO DAILY 03/26/19 Levothyroxine Sodium [Synthroid] 112 mcg PO DAILY 03/26/19 Lidocaine [Lidocaine Pain Relief] 1 ea TOPICAL HS 03/26/19 Multivitamin [One Daily] 1 ea PO DAILY 03/26/19 Rivaroxaban [Xarelto] 10 mg PO DAILY 03/26/19 Sennosides/Docusate Sodium [Senokot-S] 1 tab PO BID 03/26/19 amLODIPine BESYLATE [Norvasc] 5 mg PO DAILY 03/26/19 Polyethylene Glycol 3350 [Miralax] 17 gm PO DAILY PRN 04/01/19 Bisacodyl 10 mg RC DAILY PRN 04/16/19 Lidocaine HCl [Aspercreme Lidocaine] 76.5 gm TOPICAL QID PRN 04/16/19 Menthol/Zinc Oxide [Calmoseptine Ointment] 71 gm TOPICAL BID 04/16/19 Saccharomyces Boulardii [Probiotic] 250 mg PO DAILY 04/16/19 Acetaminophen [Tylenol] 650 mg PO Q6H PRN tab 04/24/19 Vancomycin HCl [Vancomycin] 125 mg PO Q6H btl 04/24/19
--- NOTE | 2019-04-24 16:57 | DS ---
Transfer Discharge Summary - Diagnosis(s)/Problems (1) Bacteremia Problem: Acute (2) C. difficile colitis Problem: Acute (3) Elevated alkaline phosphatase level Problem: Acute (4) UTI (urinary tract infection) Problem: Acute (5) Urinary retention Problem: Acute (6) Diabetes mellitus Problem: Chronic (7) Hypoalbuminemia Problem: Chronic (8) Pancytopenia Problem: Chronic (9) Rectovaginal fistula Problem: Chronic (10) Rheumatoid arthritis Problem: Chronic (11) Depression Problem: Suspected - Course Description of Stay: Pt with PMHx of rectovaginal fistula was admitted to our facility on 04/16/19 after presenting for intractable back pain. This was her 3rd ED visit to [facility] in the last couple of weeks. No source of the back pain was found, but her pain improved with kirby catheter placement. She'd develop urinary retention recently, and was unable to urinate without the catheter. Multiple medical problems were managed during her stay, as below. (1) Acute on chronic renal failure Initially, she had an acute kidney injury with creatinine around 2.0, which improved. However, around 04/20, her renal function acutely worsened, with creatinine on 04/22 of 3.13, and GFR of 16. Phosphorus is elevated at 5.2. Her hgb is also decreasing. Her needs progressed to more than our facility can support, and transfer process has been initiated to transfer her to the [facility] with Dr. Cazares. (2) Bacteremia Blood cultures from 04/16/19 grew Enterococcus faecalis. Notes reviewed from her hospitalization at [facility] from February 2019, which reveal she also had Enterococcus faecalis bacteremia during that admission. She did have negative blood cultures on 02/22/2019, so it had cleared and recurred. Repeat blood cultures obtained yesterday are thus far showing no growth. She had been given Vanco on admission, and was switched to q6h ampicillin 04/19/19 to help protect her kidneys. today is day 7 of IV antibiotics. She has been afebrile, and white blood cell count has not been elevated. Suspect that the source is due to her rectovaginal fistula. Her sed rate has been highly elevated at greater than 120. Repeat level drawn yesterday is pending. Discussed her case with infectious disease specialist at [facility], who recommended higher level of care. Her vitals have been normal since admission, and she does not appear acutely ill. Also discussed with [facility], and they recommend keeping her here to complete abx, unless she deteriorates. Her creatinine increased to 2.12, so 1L NS administered 04/21, but creatinine continued to increase. Ampicillin dosing changed to q12h on 04/21, and her creatinine continues to rise, to 3.16, and GFR of 16. Will only continue IV abx for 10 days, through 04/26/19, unless something changes. (3) C. difficile colitis started on po vanc on 04/17/19. stools are soft, and not diarrhea. (4) UTI (urinary tract infection) Urine culture is growing Klebsiella, sensitive to Rocephin. She was given a dose of Rocephin in the ER on 04/16/19. The Rocephin was inadvertently not continued over the weekend, and was restarted 04/19/19. Completed 5 days of treatment on 04/22. she had a kirby catheter until 04/18/19 but again developed urinary retention after it was removed, so it was replaced 04/19/19. (5) Anemia Hgb trended down, and is now to 7.6. she was asymptomatic, and without cardiac problems, did not transfuse. (6) Rectovaginal fistula Records review shows that she has had this rectovaginal fistula since 2018. She had a surgeon, Dr. Saldana at the [facility], who would fix her fistula, however she has not seen him in a year. Anticipate that this fistula is the source of these recurrent infections, and they will continue to occur unless she has it fixed. Her immobility makes her high risk for postsurgical complication. (7) Pancytopenia Records review show this is a chronic problem. WBC 3.1, hgb 7.6, platelets 96. (8) Urinary retention She has developed urinary retention of the last couple weeks. She has acute lower back pain and cannot urinate unless she has a Kirby in place. I suspect it is due to her known rectovaginal fistula, and will persist until the fistula is repaired. will leave the kirby. (9) Cardiac murmur Narrative: PT reports she has had the murmur in the past, though I have not heard it. Echo at [facility] in February did not show vegitation. Repeat echo done 04/21, has not yet resulted. (12) History of DVT (deep vein thrombosis) Her son reports that she had a left lower extremity DVT approximately 3 years ago and has been on Xarelto ever since. She currently is at increased risk for clot formation given her immobility. (13) Diabetes mellitus Blood glucose has been well controlled in the lower 100s. Metformin was stopped on admission due to GFR less than 40. She is not requiring insulin. (14) Rheumatoid arthritis Methotrexate administered on Mondays. Holding mycophenolate, due to her infections. Hypokalemia Potassium was down to 3.1 earlier this admission, and KCl supplements were added. K+ has been normal, and the supplements stopped 04/21/19. (16) Intractable back pain Better with kirby in place, and controlled with norco prn. This is a baseline problem that's been present for many months. She has been bedbound for the last month. (17) Hypoalbuminemia P.o. intake has been very poor. Added Ensure to meals 04/21/19. Albumin of 1.8. (18) Depression Per her son, she has been exhibiting signs of depression. She usually is active and participates, but she has not been doing this lately. She is more "clingy" and cries every time he arrives or leaves. An antidepressant was maybe going to be started [facility], but that hadn't happened before her admission. rock room worker was asked to speak with her. (19) snf resident Problem: Chronic (20) Morbid obesity with BMI of 40.0-44.9, adult Problem: Chronic Procedures Performed: none - Results and Findings Results and Findings: Laboratory Results - last 24 hr 04/23/19 04/23/19 04/24/19 18:22 18:22 06:16 WBC 3.2 L RBC 2.36 L Hgb 8.1 L 7.6 L* Hct 26.2 L 24.9 L MCV 105.5 H MCH 32.2 H MCHC 30.5 L RDW 16.2 H Plt Count 94 L MPV 11.2 Immature Gran % (Auto) 0.60 H Immature Gran # (Auto) 0.02 Neutrophils % 66.7 Lymphocytes % 20.3 Monocytes % 7.0 Eosinophils % 4.4 H Basophils % 1.0 Nucleated RBC % 0.0 Neutrophils # 2.1 Lymphocytes # 0.64 L Monocytes # 0.2 Eosinophils # 0.1 Absolute Basophils 0.0 Sodium 137 Plasma Sodium 137 Potassium 4.7 H Chloride 103 Carbon Dioxide 22.5 L Anion Gap 16.2 H BUN 52 H Creatinine 4.07 H D Est GFR (Non-Af Amer) 12 L D BUN/Creatinine Ratio 12.8 Random Glucose 121 H D Calcium 8.5 Calcium Adj for Albumin Iron TIBC Transferrin % Sat Ferritin Total Bilirubin AST ALT Alkaline Phosphatase Total Protein Albumin Vitamin B12 Folate 04/24/19 04/24/19 04/24/19 06:16 06:16 06:16 WBC RBC Hgb Hct MCV MCH MCHC RDW Plt Count MPV Immature Gran % (Auto) Immature Gran # (Auto) Neutrophils % Lymphocytes % Monocytes % Eosinophils % Basophils % Nucleated RBC % Neutrophils # Lymphocytes # Monocytes # Eosinophils # Absolute Basophils Sodium 138 Plasma Sodium 138 Potassium 4.5 Chloride 104 Carbon Dioxide 21.6 L Anion Gap 16.9 H BUN 57 H Creatinine 4.60 H D Est GFR (Non-Af Amer) 10 L BUN/Creatinine Ratio 12.4 Random Glucose 91 Calcium 8.4 Calcium Adj for Albumin 9.9 Iron 60 TIBC 143 L Transferrin % Sat 42 Ferritin 695 H Total Bilirubin 0.3 AST 79 H ALT 54 Alkaline Phosphatase 342 H Total Protein 6.0 L Albumin 1.7 L Vitamin B12 1937 H Folate 7.8 L - Medications Medications: Active Medications Acetaminophen (Tylenol) 650 mg PO Q6H PRN PRN Reason: Pain Stop: 05/16/19 16:10 Last Admin: 04/23/19 14:52 Dose: 650 mg Documented by: Hydrocodone Bitart/Acetaminophen ([place] 5-325) 1 each PO Q4H PRN PRN Reason: Pain Stop: 05/16/19 16:22 Last Admin: 04/24/19 09:34 Dose: 1 each Documented by: Amlodipine Besylate (Norvasc) 5 mg PO DAILY [facility] Stop: 05/17/19 09:01 Last Admin: 04/24/19 10:55 Dose: 5 mg Documented by: Bumetanide (Bumex) 1 mg PO DAILY [facility] Stop: 05/17/19 09:01 Last Admin: 04/24/19 15:00 Dose: Not Given Documented by: Gabapentin (Neurontin) 200 mg PO TID [facility] Stop: 05/16/19 17:01 Last Admin: 04/24/19 14:57 Dose: 200 mg Documented by: Hydroxychloroquine Sulfate (Plaquenil) 200 mg PO DAILY [facility] Stop: 05/17/19 09:01 Last Admin: 04/24/19 10:54 Dose: 200 mg Documented by: Sodium Chloride (Sodium Chloride 0.9%) 1,000 mls @ 175 mls/hr IV .Q5H43M PRN PRN Reason: HYDRATION Last Infusion: 04/17/19 06:37 Dose: Infused Documented by: Sodium Chloride (Sodium Chloride 0.9%) 1,000 mls @ 125 mls/hr IV .Q8H PRN PRN Reason: HYDRATION Last Infusion: 04/22/19 17:39 Dose: Infused Documented by: Levothyroxine Sodium (Synthroid) 112 mcg PO DAILY@0700 [facility] Stop: 05/17/19 07:01 Last Admin: 04/24/19 08:08 Dose: 112 mcg Documented by: Methotrexate (Methotrexate) 15 mg PO Mo@1100 [facility] Stop: 05/19/19 12:31 Last Admin: 04/19/19 13:10 Dose: 15 mg Documented by: Lidocaine [Lidocaine (Pain Relief]) 1 ea TP HS [facility] Stop: 05/16/19 21:01 Last Admin: 04/23/19 21:36 Dose: Not Given Documented by: Menthol/Zinc Oxide [ Calmoseptine Ointment] 0 gm TP BID [facility] Stop: 05/16/19 21:01 Last Admin: 04/24/19 10:55 Dose: Not Given Documented by: Rivaroxaban (Xarelto) 10 mg PO DAILY [facility] Stop: 05/19/19 12:31 Last Admin: 04/24/19 11:03 Dose: 10 mg Documented by: Vancomycin HCl (Vancomycin) 125 mg PO Q6H [facility]; Protocol Stop: 05/17/19 02:31 Last Admin: 04/24/19 14:57 Dose: 125 mg Documented by: Discontinued Medications Diatrizoate Meglum/Diatrizoate Sod (Gastrografin Solution) 60 ml PO ONCE ONE Stop: 04/16/19 17:01 Last Admin: 04/16/19 17:00 Dose: 60 ml Documented by: Ceftriaxone Sodium (Rocephin 1000 Mg Er Piggyback) 1,000 mg in 100 mls @ 200 mls/hr IV ONCE ONE Stop: 04/16/19 14:19 Last Infusion: 04/16/19 14:55 Dose: Infused Documented by: VANCOMYCIN/WATER FOR INJ (PEG) (Vancomycin) 1.5 gm in 300 mls @ 75 mls/hr IV Q24H [facility] Stop: 05/17/19 13:16 Last Infusion: 04/18/19 16:29 Dose: Infused Documented by: Ceftriaxone Sodium 1,000 mg/ (Dextrose/Water) 100 mls @ 200 mls/hr IV Q24H [facility]; Protocol Stop: 05/19/19 09:31 Last Infusion: 04/23/19 12:06 Dose: Infused Documented by: Ampicillin Sodium 2,000 mg/ (Sodium Chloride) 100 mls @ 200 mls/hr IV Q6H [facility]; Protocol Stop: 05/19/19 09:46 Last Infusion: 04/22/19 15:45 Dose: Infused Documented by: Ampicillin Sodium 2,000 mg/ (Sodium Chloride) 100 mls @ 200 mls/hr IV Q12H [facility]; Protocol Stop: 05/22/19 19:46 Last Infusion: 04/24/19 08:40 Dose: Infused Documented by: Metformin HCl (Glucophage) 500 mg PO BIDWM [facility] Stop: 05/16/19 17:01 Last Admin: 04/16/19 17:00 Dose: Not Given Documented by: Morphine Sulfate (Morphine Sulfate) 2 mg IV ONCE ONE Stop: 04/16/19 12:01 Last Admin: 04/16/19 12:35 Dose: 2 mg Documented by: Morphine Sulfate (Morphine Sulfate) 2 mg IM ONCE ONE Stop: 04/16/19 13:16 Last Admin: 04/16/19 13:24 Dose: 2 mg Documented by: Potassium Chloride (K-Dur) 20 meq PO BIDWM [facility] Stop: 05/18/19 17:01 Last Admin: 04/21/19 09:04 Dose: 20 meq Documented by: - Disposition Disposition: Short Term Hospital Inpatient Condition: Fair Discharge Date: 04/24/19 Discharge Time: 16:55
[2019-04-24 17:08] VITALS: BP 155/69
[2019-04-24 17:26] LABS: Urine Appearance Slightly Cloudy (CLEAR); Urine Bacteria TRACE; Urine Color Yellow; Urine Hyaline Cast TRACE /LPF; Urine RBC None Seen /hpf (0-5)
[2019-04-24 17:27] LABS: Urine Renal Epithelial Cell TRACE /hpf; Urine Yeast Few - 1+
[2019-04-25] MEDS ORDERED: AMPICILLIN SODIUM 2,000 MG in NORMAL SALINE 100 ML IV SCH (08:00)
--- NOTE | 2019-04-26 13:00 | ECHO ---
This report is available in the EMR
== END 2019-04-24 17:40 | disposition short-term general hospital (02) | DRG 872 ==
LOC: ER 11:20 → MS 11:20
PROVIDERS: ADMIT Family Medicine; ATTEND Family Medicine
DX: F33.1 Major depressive disorder, recurrent, moderate; D64.9 Anemia, unspecified; R33.9 Retention of urine, unspecified; N82.3 Fistula of vagina to large intestine; Z68.42 Body mass index [BMI] 45.0-49.9, adult; R74.8 Abnormal levels of other serum enzymes; R78.81 Bacteremia; E88.09 Other disorders of plasma-protein metabolism, not elsewhere classified; A04.72 Enterocolitis due to Clostridium difficile, not specified as recurrent; M05.79 Rheumatoid arthritis with rheumatoid factor of multiple sites without organ or systems involvement; N17.9 Acute kidney failure, unspecified; N30.00 Acute cystitis without hematuria; E66.01 Morbid (severe) obesity due to excess calories; B96.1 Klebsiella pneumoniae [K. pneumoniae] as the cause of diseases classified elsewhere; Z86.718 Personal history of other venous thrombosis and embolism; M54.9 Dorsalgia, unspecified; B95.2 Enterococcus as the cause of diseases classified elsewhere; D61.818 Other pancytopenia; E11.9 Type 2 diabetes mellitus without complications
CPT/HCPCS: 36415; 72100; 74176; 76830; 76856; 80048; 80053; 81001; 82607; 82728; 82746; 83540; 83550; 83605; 83735; 84080; 84100; 84145; 84165; 85007; 85014; 85018; 85025; 85045; 85379; 85384; 85652; 86140; 87040; 87077; 87086; 87186; 87493; 88321; 93306; 96365; 96375; 97110; 97163; 97530; 99285; G0378; J8610; Q9963

== ENCOUNTER 2019-05-03 16:25 | Inpatient (IN) ==
[2019-05-03] MEDS ORDERED: BISACODYL 10 MG SUPP.RECT RC PRN (18:05)
--- NOTE | 2019-05-03 19:29 | HP ---
Chief Complaint - Chief Complaint Date of Service: 05/03/19 Time of Service: 16:45 Chief Complaint: bacteremia History of Present Illness: Patient with a complicated medical history, including two recent enterococcus faecalis bacteremic infections, rectovaginal fistula, morbid obesity, rheumatoid arthritis, diabetes melllitus, HTN. She was admitted to our facility 04/16/19, and treated for c diff and klebsiella UTI in addition to her bacteremia. She developed renal failure and was transferred to the [facility]. More extensive testing was done, and there was suspicion for diskitis/osteomyelitis. She was then started on PCN G, continuous. Her renal function normalized, and she was transferred here for four weeks of antibiotics. Medical History (Last Reviewed 05/03/19 @ 16:44 by Yanira Sutherland RN) Anal fistula Diabetes High cholesterol Hypertension Hypothyroid Rheumatoid arthritis Shingles Spinal stenosis Surgical History: Surgical History (Last Reviewed 05/03/19 @ 16:44 by Yanira Sutherland RN) S/P cervical spinal fusion Family History: Family History (Last Reviewed 05/03/19 @ 16:45 by Yanira Sutherland RN) Mother Type 2 diabetes mellitus CVA (cerebral vascular accident) Father CVA (cerebral vascular accident) Other No pertinent family history Social History: (Last Reviewed 05/03/19 @ 16:46 by Yanira Sutherland RN) Social History: residential: Yes lives independently: No Highest education level completed: high school graduate Service: No Tobacco: Smoking Status: Former smoker Alcohol: alcohol intake: never Substance Use: substance use type: does not use Dietary Habits: caffeine: Yes Type: tea high-fat food intake: 0-1 times daily Review Of Systems (GEN) - Review of Systems Generalized/Overall Review: Absent: Fever Respiratory: Present: Shortness of Breath. Absent: Cough Cardiac: Present: Chest Pain, Edema Abdominal: Present: Vomiting, Diarrhea. Absent: Abdominal Pain Genitourinary: Present: Retention - kirby in place Musculoskeletal: Present: Back Pain Neurological: Present: Depressed, Weakness Skin: Present: No Symptoms Reported Immunizations: IMMUNIZATION HX Immunizations Up to Date No History of Influenza Vaccine Yes Hx Pneumococcal Vaccination Yes Allergies/Adverse Reactions: Allergies Allergy/AdvReac Type Severity Reaction Status Date / Time Sulfa (Sulfonamide AdvReac Unknown Verified 05/03/19 16:47 Antibiotics) Home Medications: HOME MEDICATIONS Cyanocobalamin (Vitamin B-12) [Vitamin B-12] 1,000 mcg PO DAILY 03/26/19 [Last Taken Unknown] Folic Acid 0.8 mg PO DAILY 03/26/19 [Last Taken Unknown] Levothyroxine Sodium [Synthroid] 112 mcg PO DAILY 03/26/19 [Last Taken Unknown] Lidocaine [Lidocaine Pain Relief] 1 ea TOPICAL HS 03/26/19 [Last Taken Unknown] Multivitamin [One Daily] 1 ea PO DAILY 03/26/19 [Last Taken Unknown] Rivaroxaban [Xarelto] 10 mg PO DAILY 03/26/19 [Last Taken Unknown] amLODIPine BESYLATE [Norvasc] 5 mg PO DAILY 03/26/19 [Last Taken Unknown] Bisacodyl 10 mg RC DAILY PRN 04/16/19 [Last Taken Unknown] Lidocaine HCl [Aspercreme Lidocaine] 76.5 gm TOPICAL QID PRN 04/16/19 [Last Taken Unknown] Menthol/Zinc Oxide [Calmoseptine Ointment] 71 gm TOPICAL BID 04/16/19 [Last Taken Unknown] Saccharomyces Boulardii [Probiotic] 250 mg PO DAILY 04/16/19 [Last Taken Unknown] Acetaminophen [Tylenol] 650 mg PO Q6H PRN tab 04/24/19 [Last Taken Unknown] Ascorbic Acid [Vitamin C] 500 mg PO DAILY 05/03/19 [Last Taken Unknown] Aspirin [Aspirin EC] 81 mg PO DAILY 05/03/19 [Last Taken Unknown] Atorvastatin Calcium 10 mg PO DAILY 05/03/19 [Last Taken Unknown] Gabapentin 200 mg PO TID 05/03/19 [Last Taken Unknown] Hydroxychloroquine Sulfate [Plaquenil] 200 mg PO DAILY 05/03/19 [Last Taken Unknown] Vancomycin HCl [Vancomycin] 125 ml PO BID 05/03/19 [Last Taken Unknown] Exam - Exam Vital Signs: Vital Signs - Last Taken Temp 36.9 C 05/03/19 16:54 Pulse 91 05/03/19 16:54 Resp 12 05/03/19 16:54 BP 158/63 H 05/03/19 16:54 Pulse Ox 100 05/03/19 16:54 Constitutional: Present: Alert, No distress, Morbidly obese Respiratory: Present: no respiratory distress, other - distant heart sounds Cardiovascular/Chest: Present: regular rate, rhythm Abdomen: Present: obese Extremity: Absent: lower extremity edema Lymphatic: Present: other - PICC line in right upper arm Neurologic: Present: normal mood/affect Eye contact: Present: good eye contact Assessment/Plan - Assessment/Plan (1) Bacteremia Assessment: Negative CARON. Her specialists at the feel like the source is from diskitis/osteomyelitis. She will be on continuous PCN-G until she can follow up with neurosurgery and ID at the [facility] in 4 weeks. She is afebrile, and appears more comfortable that during her previous hospitalization. Problem: Acute (2) Rectovaginal fistula Assessment: Has seen colorectal surgery, and she is not a surgical candidate. Her surgeon does not feel like the fistula is the source of her infections. Problem: Chronic (3) Intractable back pain Assessment: Diskitis/osteomyelitis suspected. can not obtain MRI due to her cochlear implant, and ENT will not remove it currently while non-essential procedures are being postponed during the COVID outbreak. She is being covered with PCN-G continuously until she can be seen by neurosurgery and ID in a month. Problem: Chronic (4) Diabetes mellitus Assessment: Well controlled during her hospitalization here. Did not require insulin. Problem: Chronic Qualifiers: (5) History of DVT (deep vein thrombosis) Assessment: She is prescribed xarelto for a remote DVT, and can continue. Problem: Chronic (6) Pancytopenia Assessment: She developed some pancytopenia during her stay with us recently, but chart review showed this was present previously. CBC pending for the morning. Problem: Chronic (7) C. difficile colitis Assessment: She was started on po vancomycin on 04/16 for c diff. Her diarrhea has improved, but she is still on 125 mg vancomycin bid per ID guidelines, for the duration of her antibiotic course. Problem: Resolved (8) Rheumatoid arthritis Assessment: She was seen by rheumatology while at the . Holding her mycophenolate while she is on abx. Can continue once weekly methotrexate, but will verify this with [facility] notes. Problem: Chronic Qualifiers: (9) Depression Assessment: Toward the end of her hospitalization here, her son expressed some concern about her showing depression symptoms. Will discuss treatment options while she is here. I had asked if our director hospice operations could speak with her, but unsure if this actually happened. Problem: Suspected Qualifiers: (10) long term resident Assessment: Anticipate she will be able to return to a NH after discharge in a month. Problem: Chronic
[2019-05-03] MEDS: VANCOMYCIN HCL 50 MG/ML BTL PO SCH (19:41)
[2019-05-03] MEDS ORDERED: PENICILLIN POTASSIUM IV SCH ×2 (19:45)
[2019-05-03] MEDS ORDERED: WATER IV SCH ×2 (19:45)
[2019-05-03] MEDS ORDERED: DEXTROSE IV SCH ×2 (19:45)
[2019-05-03] MEDS ORDERED: VANCOMYCIN HCL 50 MG/ML BTL PO SCH (21:00)
[2019-05-03] MEDS: ACETAMINOPHEN 325 MG TABLET PO PRN (21:27)
[2019-05-04] MEDS: LIDOCAINE TP SCH ×2 (06:13→21:17)
[2019-05-04 06:34] LABS: Hematocrit 26.3 % (37.0-47.0); Mean Cell Volume 109.6 fl (78-100); Mean Corpuscular Hemoglobin 32.9 pg (27-31); Mean Platelet Volume 9.5 fl (8-12.5); Neutrophil # 2.2 K/mm3 (1.3-6.0); Neutrophil % 59.8 % (42-75.0); Platelet Count 201 K/mm3 (150-450); Red Cell Distribution Width 18.3 % (11.5-14.0); White Blood Count 3.7 K/mm3 (4.0-10.5)
[2019-05-04 06:39] LABS: Hemoglobin 7.9 gm/dL (12.5-16.0)
[2019-05-04] MEDS: ACETAMINOPHEN 325 MG TABLET PO PRN ×2 (06:46→18:51)
[2019-05-04] MEDS: VANCOMYCIN HCL 50 MG/ML BTL PO SCH ×2 (06:46→18:51)
[2019-05-04] MEDS: LEVOTHYROXINE SODIUM 112 MCG TABLET PO SCH (06:46)
[2019-05-04 06:47] LABS: Anion Gap 11.1 mmol/L (6.8-13.8); Bilirubin, Total 0.3 mg/dL (0.0-1.1); Potassium 4.1 mmol/L (3.4-4.6); Total Protein 6.1 gm/dL (6.2-8.2)
[2019-05-04 07:16] LABS: Albumin * 1.7 gm/dl (3.4-5.0); BUN/Creatinine Ratio 10.4 (9.0-21.6); Ca. Corrected For Albumin 10.3 mg/dL (8.4-10.2); Calcium * 8.8 mg/dL (7.9-10.9)
--- NOTE | 2019-05-04 08:05 | PN ---
Subjective - Date and Time Seen Date: 05/04/19 Time: 08:15 Subjective Narrative: Patient reports she did not sleep well overnight. She is concerned about right arm swelling. Does not think she had a bowel movement. Objective - Review of Systems Generalized/Overall Review: Reports: Weakness. Denies: Fever Respiratory: Denies: Cough, Shortness of Breath Cardiac: Reports: Edema. Denies: Chest Pain Abdominal: Denies: Vomiting, Abdominal Pain, Constipation Genitourinary Symptoms: Reports: Retention, Other - kirby in place Skin: Reports: No Symptoms Reported - Vitals Vitals: Last Vital Signs Temp 36.6 C 05/04/19 06:20 Pulse 86 05/04/19 06:20 Resp 20 05/04/19 06:20 BP 150/54 H 05/04/19 06:20 Pulse Ox 99 05/04/19 06:20 - Abnormal Lab Findings Abnormal Lab Findings: Abnormal Lab Results 05/04/19 05/04/19 Range/Units 06:25 06:25 WBC 3.7 L (4.0-10.5) K/mm3 RBC 2.40 L (4.2-5.4) M/mm3 Hgb 7.9 L* (12.5-16.0) gm/dL Hct 26.3 L (37.0-47.0) % MCV 109.6 H (78-100) fl MCH 32.9 H (27-31) pg MCHC 30.0 L (32-36) g/dl RDW 18.3 H (11.5-14.0) % Immature Gran % (Auto) 0.80 H (0.001-0.429) % Lymphocytes % 15.8 L (20-51) % Monocytes % 20.1 H (0.0-9) % Basophils % 1.1 H (0.0-1.0) % Lymphocytes # 0.59 L (1.5-3.5) k/mm3 Est GFR (Non-Af Amer) 42 L D (60-130) mL/min Calcium Adj for Albumin 10.3 H (8.4-10.2) mg/dL AST 71 H (0-48) U/L Alkaline Phosphatase 280 H (50-170) U/L Total Protein 6.1 L (6.2-8.2) gm/dL Albumin 1.7 L (3.4-5.0) gm/dl - Exam Constitutional: Present: Alert, Cooperative, No distress, Morbidly obese Respiratory: Present: lungs clear, normal breath sounds Cardiovascular/Chest: Present: regular rate, rhythm, systolic murmur Abdomen: Present: soft, nontender, obese Extremity: Present: lower extremity edema - 1+ bilateral lower extremity edema Skin Exam: Present: other - PICC line in right upper arm, peripheral IV in right forearm Neurologic: Present: normal mood/affect Eye contact: Present: good eye contact Cauti Physician Documentation - Urinary Catheter Management Urethral (Kirby) Urethral Indwelling: Yes Reason for Continuing Indwelling Catheter: Acute urinary retention Assessment/Plan Plan Narrative: 45 minutes spent with patient, doing chart review of imaging, labs, and consult notes from the [facility], and documentation. - Problems/Diagnosis (1) Bacteremia Problem: Acute Narrative: She has had enterococcal faecalis bacteremia twice since 10 February 2019. She was admitted to our facility on April 15, transferred to the [facility] on April 23, and transferred back here on May 02. Negative CARON. Her specialists at the feel like the source is from diskitis/osteomyelitis. She will be on continuous PCN-G until she can follow up with neurosurgery and ID at the [facility] in 4 weeks. She is not requiring additional care at this time, and can DC to a facility that will manage a 24 hour P[facility]-G infusion. (2) Rectovaginal fistula Problem: Chronic Narrative: This is been present since 2017. She previously did not want correction, but with her ongoing infections, she has not agreed to possible repair. Has seen colorectal surgery, and she was not a surgical candidate while at the [facility]. Her surgeon does not feel like the fistula is the source of her infections. Chart review shows she is to see them again in 4 weeks, which will be mid-late May. (3) Intractable back pain Problem: Chronic Narrative: There is concern for discitis versus possible osteomyelitis. Imaging that was done at the [facility] showed some erosion of L3-L4 which could represent discitis or osteo-. CT myelogram is contraindicated and possible discitis. She will be seeing neurosurgery again in 4 weeks. Per their notes, she was given oxycodone and Dilaudid. Her back pain was controlled here with [place], so we will continue. (4) Diabetes mellitus Problem: Chronic Qualifiers: Narrative: Glucose 104 today. She had previously been on metformin, which was held on admission due to GFR of less than 40. Her GFR today is 42, but will defer resuming metformin to her PCP after discharge. (5) Pancytopenia Problem: Chronic Narrative: Improved. Her platelets are technically normal right now. Chart review shows this was present prior to her April 15 admission. (6) History of DVT (deep vein thrombosis) Problem: Chronic Narrative: She is prescribed xarelto for a remote DVT, and can continue. (7) C. difficile colitis Problem: Resolved (8) Rheumatoid arthritis Problem: Chronic Qualifiers: Narrative: She was seen by rheumatology while at the . Holding her mycophenolate while she is on abx. Can continue once weekly methotrexate, but will attempt to verify this with [facility] notes. (9) Depression Problem: Suspected Qualifiers: (10) Hypoalbuminemia Problem: Chronic Narrative: Albumin is 1.7. We will add Ensure and consult the dietitian. Her p.o. intake is poor. (11) Chronic renal failure, stage 3 (moderate) Problem: Chronic Narrative: Creatinine increased to greater than 4 and GFR decreased to 17 during her last hospitalization. Nephrology notes did not specifically indicate the source of her renal failure, but suspect it was due to medications. She was switched from ampicillin to penicillin G and her acute renal failure resolved. Creatinine of 1.35 and GFR of 42 this morning. (12) Anemia Problem: Chronic Narrative: Hemoglobin of 7.7 today. I assume this is due to her recent decreased renal function and poor nutrition. We will add Ensure with meals, and transfuse if Hgb less than 7.0. (13) detention resident Problem: Chronic
[2019-05-04] MEDS: FOLIC ACID 0.4 MG TABLET PO SCH (09:01)
[2019-05-04] MEDS: GABAPENTIN 100 MG CAPSULE PO SCH ×3 (09:01→17:36)
[2019-05-04] MEDS: MULTIVITAMINS 1 CAP CAPSULE PO SCH (09:01)
[2019-05-04] MEDS: RIVAROXABAN 20 MG TABLET PO SCH (09:02)
[2019-05-04] MEDS: CYANOCOBALAMIN 1,000 MCG TABLET PO SCH (09:02)
[2019-05-04] MEDS: ASCORBIC ACID 500 MG TABLET PO SCH (09:02)
[2019-05-04] MEDS: amLODIPine BESYLATE 5 MG TABLET PO SCH (09:02)
[2019-05-04] MEDS: HYDROcodone/ACETAMINOPHEN 1 EACH TABLET PO PRN ×2 (09:09→22:04)
[2019-05-04] MEDS: PENICILLIN POTASSIUM IV SCH (14:34)
[2019-05-04] MEDS: [UNRECOGNIZED DRUG - OTHER] IV SCH (14:34)
[2019-05-05] MEDS: ACETAMINOPHEN 325 MG TABLET PO PRN ×2 (01:14→13:44)
[2019-05-05] MEDS: VANCOMYCIN HCL 50 MG/ML BTL PO SCH ×2 (05:58→19:25)
[2019-05-05] MEDS: LEVOTHYROXINE SODIUM 112 MCG TABLET PO SCH (06:40)
--- NOTE | 2019-05-05 08:25 | PN ---
Subjective - Date and Time Seen Date: 05/05/19 Time: 08:30 Subjective Narrative: Patient reports continued back pain and the Jay was not helpful. She also wonders if she can take her home Lyrica instead of the gabapentin because it is not helpful. Her right upper arm edema improved after exercising it during the day yesterday. She also reports increased gas and bloating. Objective - Review of Systems Generalized/Overall Review: Denies: Fever Respiratory: Denies: Shortness of Breath Cardiac: Reports: Edema. Denies: Chest Pain Abdominal: Reports: Other - bloating. Denies: Constipation Genitourinary Symptoms: Reports: Other - kirby in place Musculoskeletal Complaints: Reports: Back Pain Neurological: Reports: Weakness Skin: Reports: No Symptoms Reported - Vitals Vitals: Last Vital Signs Temp 36.7 C 05/05/19 06:52 Pulse 87 05/05/19 06:52 Resp 14 05/05/19 06:52 BP 140/55 05/05/19 06:52 Pulse Ox 98 05/05/19 06:52 - Exam Constitutional: Present: Alert, No distress, Morbidly obese Respiratory: Present: no respiratory distress, other - Diminished lung sounds secondary to body habitus Abdomen: Present: soft, obese Extremity: Present: lower extremity edema - 2+ bilaterally, similar to yesterday Eye contact: Present: cooperative, good eye contact Cauti Physician Documentation - Urinary Catheter Management Urethral (Kirby) Urethral Indwelling: Yes Assessment/Plan - Problems/Diagnosis (1) Bacteremia Problem: Acute Narrative: She has had enterococcal faecalis bacteremia twice since 10 February 2019. She was admitted to our facility on April 15, transferred to the [facility] on April 23, and transferred back here on May 02. Negative CARON. Her specialists at the feel like the source is from diskitis/osteomyelitis. She will be on continuous PCN-G until she can follow up with neurosurgery and ID at the [facility] in 4 weeks. She is not requiring additional care at this time, and can DC to a facility that will manage a 24 hour PCN-G infusion. (2) Rectovaginal fistula Problem: Chronic Narrative: This is been present since 2017. She previously did not want correction, but with her ongoing infections, she has not agreed to possible repair. Has seen colorectal surgery, and she was not a surgical candidate while at the [facility]. Her surgeon does not feel like the fistula is the source of her infections. Chart review shows she is to see them again in 4 weeks, which will be mid-late May. The fistula may be contributing to her urinary retention. She's been unable to urinate without the kirby. Recommendations from the are to attempt removal when she is able to ambulate, but she's been unable to ambulate since early March after a fall. (3) Chronic low back pain Problem: Chronic Narrative: There is concern for discitis versus possible osteomyelitis. Imaging that was done at the [facility] showed some erosion of L3-L4 which could represent disc itis or osteo-. CT myelogram is contraindicated and possible discitis. She will be seeing neurosurgery again in 4 weeks. Per their notes, she was given oxycodone and Dilaudid. Attempted to manage pain with norco, with insufficient results. Changed to oxycodone today, 05/05/19. (4) Diabetes mellitus Problem: Chronic Qualifiers: Narrative: Glucose 104 on labs done 05/04/19. She had previously been on metformin, which was held on admission due to GFR of less than 40. Her GFR improved to 42, but will defer resuming metformin to her PCP after discharge. (5) Pancytopenia Problem: Chronic Narrative: Improved. Her platelets are technically normal on labs done 05/04/19. (6) History of DVT (deep vein thrombosis) Problem: Chronic Narrative: She is prescribed xarelto for a remote DVT, and can continue. (7) C. difficile colitis Problem: Resolved Narrative: Resolved, however per ID at the [facility], she is to remain on bid vancomycin while she is prescribed antibiotics, which will be 4 weeks. (8) Rheumatoid arthritis Problem: Chronic Qualifiers: Narrative: She was seen by rheumatology while at the . Holding her mycophenolate while she is on abx. She will have her son bring in her home lyrica, as the gabapentin we have on formulary isn't helful. Can continue once weekly methotrexate, but will attempt to verify this with [facility] notes. She was previously prescribed hydroxychloroquine while at the correction, but there is currently a shortage. (9) Depression Problem: Suspected Qualifiers: (10) Hypoalbuminemia Problem: Chronic Narrative: Senior Designer/Art Director consult placed, and ensure added to meals. (11) Chronic renal failure, stage 3 (moderate) Problem: Chronic Narrative: Creatinine increased to greater than 4 and GFR decreased to 17 during her last hospitalization. Nephrology notes did not specifically indicate the source of her renal failure, but suspect it was due to medications. She was switched from ampicillin to penicillin G and her acute renal failure resolved. Creatinine of 1.35 and GFR of 42 on 05/04/19. Will check CMP twice weekly. (12) Anemia Problem: Chronic Narrative: Hemoglobin of 7.7 on 05/04/19. Her hemoglobin has chronically been low while ad mitted here. Her baseline appears to be around 9.5, which was her level on her initial visit here in March 2019. I assume this is due to her recent decreased renal function and poor nutrition. We will add Ensure with meals, and transfuse if Hgb less than 7.0. Will check twice weekly. (13) Abdominal bloating Problem: Acute Narrative: She is experiencing abdominal bloating after eating. We will add simethicone prn. (14) Morbid obesity with BMI of 45.0-49.9, adult Problem: Chronic Narrative: Likely contributing to her difficulty in clearing these infections and staying healthy. Discussed the importance of working with physical therapy. (15) [facility] resident Problem: Chronic
[2019-05-05] MEDS: oxyCODONE HCL 5 MG TABLET PO PRN ×2 (08:51→21:15)
[2019-05-05] MEDS: amLODIPine BESYLATE 5 MG TABLET PO SCH (08:54)
[2019-05-05] MEDS: ASCORBIC ACID 500 MG TABLET PO SCH (08:54)
[2019-05-05] MEDS: MULTIVITAMINS 1 CAP CAPSULE PO SCH (08:54)
[2019-05-05] MEDS: RIVAROXABAN 20 MG TABLET PO SCH (08:54)
[2019-05-05] MEDS: FOLIC ACID 0.4 MG TABLET PO SCH (08:54)
[2019-05-05] MEDS: CYANOCOBALAMIN 1,000 MCG TABLET PO SCH (08:54)
[2019-05-05] MEDS ORDERED: SIMETHICONE 40 MG/0.6 ML BTL PO PRN (09:18)
[2019-05-05] MEDS: LYRICA 200 MG PO SCH ×3 (10:42→23:08)
[2019-05-05] MEDS: [UNRECOGNIZED DRUG - OTHER] IV SCH (14:02)
[2019-05-05] MEDS: PENICILLIN POTASSIUM IV SCH (14:02)
[2019-05-05] MEDS: LIDOCAINE TP SCH (20:49)
[2019-05-06] MEDS: VANCOMYCIN HCL 50 MG/ML BTL PO SCH ×2 (06:57→17:26)
[2019-05-06] MEDS: LEVOTHYROXINE SODIUM 112 MCG TABLET PO SCH (06:57)
[2019-05-06] MEDS: LYRICA 200 MG PO SCH ×3 (06:57→22:09)
--- NOTE | 2019-05-06 08:21 | PN ---
Subjective - Date and Time Seen Date: 05/06/19 Time: 08:21 Subjective Narrative: Patient slept through exam. She had reported not sleeping the previous 2 nights, so I did not wake her this morning. No new concerns from nursing. She is having adequate urine output. Objective - Review of Systems Generalized/Overall Review: Denies: Fever Respiratory: Denies: Cough, Shortness of Breath Cardiac: Reports: Edema. Denies: Chest Pain Abdominal: Denies: Vomiting Genitourinary Symptoms: Reports: Retention, Other - kirby in place Musculoskeletal Complaints: Reports: Back Pain Neurological: Reports: Weakness Skin: Reports: No Symptoms Reported - Vitals Vitals: Last Vital Signs Temp 36.3 C 05/06/19 06:41 Pulse 86 05/06/19 06:41 Resp 16 05/06/19 06:41 BP 143/68 05/06/19 06:41 Pulse Ox 98 05/06/19 06:41 - Exam Constitutional: Present: No distress, Morbidly obese Respiratory: Present: lungs clear - anterior exam only, no respiratory distress Cardiovascular/Chest: Present: regular rate, rhythm Abdomen: Present: other - kirby in place with clear yellow urine Extremity: Present: lower extremity edema - 2+ bilaterally, similar to yesterday Cauti Physician Documentation - Urinary Catheter Management Urethral (Kirby) Urethral Indwelling: Yes Assessment/Plan - Problems/Diagnosis (1) Bacteremia Problem: Acute Narrative: She has had enterococcal faecalis bacteremia twice since 10 February 2019. She was admitted to our facility on April 15, transferred to the [facility] on April 23, and transferred back here on May 02. Negative CARON. Her specialists at the feel like the source is from diskitis/osteomyelitis. She will be on continuous PCN-G until she can follow up with neurosurgery and ID at the of in 4 weeks, which will be mid May. She is not requiring acute care at this time, and can DC to a SNF facility that will manage a 24 hour PCN-G infusion. (2) Rectovaginal fistula Problem: Chronic Narrative: This is been present since 2017. She previously did not want correction, but with her ongoing infections, she has now agreed to possible repair. Has seen colorectal surgery, and she was not a surgical candidate while at the [facility]. Her surgeon does not feel like the fistula is the source of her infections. Chart review shows she is to see them again in 4 weeks, which will be mid-late May. The fistula may be contributing to her urinary retention. She's been unable to urinate without the kirby. Recommendations from the are to attempt removal when she is able to ambulate, but she's been unable to ambulate since early March after a fall. (3) Chronic low back pain Problem: Chronic Narrative: There is concern for discitis versus possible osteomyelitis. She is receiving 4 weeks of PCN-G. Imaging that was done at the [facility] showed some erosion of L3-L4 which could represent discitis or osteomyelitis. CT myelogram is contraindicated with possible discitis. She will be seeing neurosurgery again in 4 weeks. Per their notes, she was given oxycodone and Dilaudid. Attempted to manage pain with norco, with insufficient results. Changed to oxycodone 05/05/19. (4) Diabetes mellitus Problem: Chronic Qualifiers: Narrative: Glucose 104 on labs done 05/04/19. She had previously been on metformin, which was held on admission due to GFR of less than 40. Her GFR improved to 42, but will defer resuming metformin to her PCP after discharge. (5) Pancytopenia Problem: Chronic Narrative: Improved. Her platelets are technically normal on labs done 05/04/19. Chart review shows she has been pancytopenic prior to her original admission here earlier this month. (6) Rheumatoid arthritis Problem: Chronic Qualifiers: Narrative: She was seen by rheumatology while at the . Holding her mycophenolate while she is on abx. She will have her son bring in her home lyrica, as the gabapentin we have on formulary isn't helful. Can continue once weekly methotrexate, but will attempt to verify this with [facility] notes. She was previously prescribed hydroxychloroquine while at the correction, but there is currently a shortage, and will hold while she is receiving the PCN-G. (7) C. difficile colitis Problem: Resolved Narrative: Resolved, however per ID at the [facility], she is to remain on bid vancomycin while she is prescribed antibiotics, which will be 4 weeks. (8) History of DVT (deep vein thrombosis) Problem: Chronic Narrative: She is prescribed xarelto for a remote DVT, and can continue. (9) Depression Problem: Suspected Qualifiers: (10) Hypoalbuminemia Problem: Chronic Narrative: She was seen by our coffee roaster, who is also following. Continue ensure with meals. (11) Anemia Problem: Chronic Narrative: Hemoglobin of 7.7 on 05/04/19. Her hemoglobin has chronically been low while admitted here. Her baseline appears to be around 9.5, which was her level on her initial visit here in March 2019. I assume this is due to her recent decreased renal function and poor nutrition. We will add Ensure with meals, and transfuse if Hgb less than 7.0. Will check twice weekly. (12) Chronic renal failure, stage 3 (moderate) Problem: Chronic Narrative: Creatinine increased to greater than 4 and GFR decreased to 17 during her last hospitalization. Nephrology notes did not specifically indicate the source of her renal failure, but suspect it was due to medications. She was switched from ampicillin to penicillin G and her acute renal failure resolved. Creatinine of 1.35 and GFR of 42 on 05/04/19. Will check CMP twice weekly. she is having adequate urine output. (13) Abdominal bloating Problem: Acute Narrative: She is experiencing abdominal bloating after eating, and simethicone has been added. (14) Morbid obesity with BMI of 45.0-49.9, adult Problem: Chronic (15) long-term resident Problem: Chronic
[2019-05-06] MEDS: FOLIC ACID 0.4 MG TABLET PO SCH (09:41)
[2019-05-06] MEDS: RIVAROXABAN 20 MG TABLET PO SCH (09:42)
[2019-05-06] MEDS: ASCORBIC ACID 500 MG TABLET PO SCH (09:42)
[2019-05-06] MEDS: CYANOCOBALAMIN 1,000 MCG TABLET PO SCH (09:42)
[2019-05-06] MEDS: MULTIVITAMINS 1 CAP CAPSULE PO SCH (09:42)
[2019-05-06] MEDS: amLODIPine BESYLATE 5 MG TABLET PO SCH (09:42)
[2019-05-06] MEDS: oxyCODONE HCL 5 MG TABLET PO PRN (09:42)
[2019-05-06] MEDS: ACETAMINOPHEN 325 MG TABLET PO PRN (12:07)
[2019-05-06] MEDS: PENICILLIN POTASSIUM IV SCH (14:34)
[2019-05-06] MEDS: [UNRECOGNIZED DRUG - OTHER] IV SCH (14:34)
[2019-05-06] MEDS: LIDOCAINE TP SCH (20:38)
[2019-05-07] MEDS ORDERED: HEPARIN SOD.,PORCINE 100 UNITS/ML IV PRN ×2 (07:01→07:12)
[2019-05-07] MEDS: VANCOMYCIN HCL 50 MG/ML BTL PO SCH ×2 (07:10→17:28)
[2019-05-07] MEDS: LYRICA 200 MG PO SCH ×4 (07:14→23:33)
[2019-05-07] MEDS: LEVOTHYROXINE SODIUM 112 MCG TABLET PO SCH (07:15)
[2019-05-07 07:24] LABS: Hematocrit 24.8 % (37.0-47.0); Mean Cell Volume 108.8 fl (78-100); Mean Corpuscular Hemoglobin 32.9 pg (27-31); Mean Corpuscular Hgb Conc 30.2 g/dl (32-36); Mean Platelet Volume 10.3 fl (8-12.5); Platelet Count 175 K/mm3 (150-450); Red Blood Count 2.28 M/mm3 (4.2-5.4); White Blood Count 4.1 K/mm3 (4.0-10.5)
[2019-05-07 07:27] LABS: Albumin * 1.5 gm/dl (3.4-5.0); Anion Gap 11.1 mmol/L (6.8-13.8); BUN/Creatinine Ratio 11.6 (9.0-21.6); Bilirubin, Total 0.2 mg/dL (0.0-1.1); Ca. Corrected For Albumin 9.9 mg/dL (8.4-10.2); Calcium * 8.2 mg/dL (7.9-10.9); Carbon Dioxide 26.4 mmol/L (24-32.6); Potassium 5.5 mmol/L (3.4-4.6); Total Protein 5.5 gm/dL (6.2-8.2)
[2019-05-07 07:31] LABS: Hemoglobin 7.5 gm/dL (12.5-16.0)
[2019-05-07 07:35] LABS: Total Cells Counted 100
[2019-05-07 07:50] LABS: Eosinophil 1 % (0-3); Lymphocyte 32 % (20-51); Monocyte 21 % (0-9); Neutrophil 46 % (42-75); Neutrophil # 1.9 K/mm3 (1.3-6.0)
[2019-05-07 07:51] LABS: Platelet Estimate Normal (NORMAL)
[2019-05-07 07:52] LABS: Anisocytosis 1+; Spherocyte 1+
--- NOTE | 2019-05-07 08:19 | PN ---
Subjective - Date and Time Seen Date: 05/07/19 Time: 08:19 Subjective Narrative: Patient reports her bloating is a bit better. The Lyrica is working better for her pain, as does the oxycodone. No new concerns. She was able to stand the other day. Objective - Review of Systems Generalized/Overall Review: Denies: Fever Respiratory: Denies: Cough, Shortness of Breath Cardiac: Reports: Edema. Denies: Chest Pain Abdominal: Reports: Other - loose stools. Denies: Vomiting, Abdominal Pain Genitourinary Symptoms: Reports: Retention, Other - kirby in place Neurological: Reports: Weakness - Vitals Vitals: Last Vital Signs Temp 36.5 C 05/07/19 06:45 Pulse 85 05/07/19 06:45 Resp 16 05/07/19 06:45 BP 146/49 05/07/19 06:45 Pulse Ox 98 05/07/19 06:45 - Abnormal Lab Findings Abnormal Lab Findings: Abnormal Lab Results 05/07/19 05/07/19 Range/Units 07:00 07:00 RBC 2.28 L (4.2-5.4) M/mm3 Hgb 7.5 L* (12.5-16.0) gm/dL Hct 24.8 L (37.0-47.0) % MCV 108.8 H (78-100) fl MCH 32.9 H (27-31) pg MCHC 30.2 L (32-36) g/dl RDW 18.0 H (11.5-14.0) % Monocytes % (Manual) 21 H (0-9) % Lymphocytes # (Manual) 1.3 L (1.5-3.5) k/mm3 Potassium 5.5 H D (3.4-4.6) mmol/L Est GFR (Non-Af Amer) 44 L (60-130) mL/min Random Glucose 246 H (70-110) mg/dL AST 74 H (0-48) U/L Alkaline Phosphatase 256 H (50-170) U/L Total Protein 5.5 L (6.2-8.2) gm/dL Albumin 1.5 L (3.4-5.0) gm/dl - Exam Constitutional: Present: Alert, Cooperative, No distress, Morbidly obese Respiratory: Present: lungs clear, no respiratory distress Cardiovascular/Chest: Present: regular rate, rhythm, systolic murmur Abdomen: Present: soft, nontender, obese, other - kirby in place draining clear urine Extremity: Present: lower extremity edema - 2+ bilaterally Neurologic: Present: normal mood/affect Cauti Physician Documentation - Urinary Catheter Management Urethral (Kirby) Urethral Indwelling: Yes Assessment/Plan - Problems/Diagnosis (1) Bacteremia Problem: Acute Narrative: She has had enterococcal faecalis bacteremia twice since 10 February 2019. She was admitted to our facility on April 15, transferred to the [facility] on April 23, and transferred back here on May 02. Negative CARON. Her specialists at the feel like the source is from diskitis/osteomyelitis. She will be on continuous PCN-G until she can follow up with neurosurgery and ID at the [facility] in 4 weeks, which will May 30. She is not requiring acute care at this time, and can DC to a SNF facility that will manage a 24 hour PCN-G infusion. partner marketing intern have been working on finding a facility, and appreciate their assistance. They have thus far been unable to find an accepting facility. (2) Rectovaginal fistula Problem: Chronic Narrative: This is been present since 2017. She previously did not want correction, but with her ongoing infections, she has now agreed to possible repair. Has seen c olorectal surgery, and she was not a surgical candidate while at the [facility]. Her surgeon does not feel like the fistula is the source of her infections. Chart review shows she is to see them again in 4 weeks, which will be May 30. The fistula may be contributing to her urinary retention. She's been unable to urinate without the kirby. Recommendations from the are to attempt removal wh en she is able to ambulate, but she's been unable to ambulate since early March after a fall. (3) Chronic low back pain Problem: Chronic Narrative: She saw neurosurgery at the . She has a cochlear implant, and can not obtain an MRI. CT showed L4-S1 diskitis/osteomyelitis, and WBC can showed abnormal bone radiotracer uptake in the lumbar spine at L3-S1, but WBC activity was negative, and can represent false negative. Neurosurgery and ID recommendations are to continue continuous PCN-G for 4 weeks, which will be around 05/31/19. Back pain better controlled with oxycodone, and will continue. (4) Anemia Problem: Chronic Narrative: Hemoglobin of 7.7 on 05/04/19, and 7.5 on 05/07/19. She is asymptomatic and vitals are normal. Her hemoglobin has chronically been low while admitted here. Her baseline appears to be around 9.5, which was her level on her initial visit here in March 2019. I assume this is due to her recent decreased renal function and poor nutrition. We will add Ensure with meals, and transfuse if Hgb less than 7.0. Will check twice weekly. (5) Diabetes mellitus Problem: Chronic Qualifiers: Narrative: Blood sugar had been well controlled, however on today's CMP her glucose was greater than 200. She feels like she is eating better than she had been in the past. Will add glucose checks with meals and sliding scale insulin for now. Given she has been hospitalized for several weeks and will have several more weeks of hospitalization, if her glucose is controlled over the weekend, will discontinue frequent glucose checks to reduce her discomfort. She'd been on metformin for her last admission, but her GFR was less than 40, so it was held. Will defer resuming metformin to her PCP. (6) Pancytopenia Problem: Chronic Narrative: Improved. On today's CBC, her white blood cells are a bit low at 4.1, but her platelets have increased and are now normal. Chart review shows that she has been cytopenic prior to her initial admission here. (7) Rheumatoid arthritis Problem: Chronic Qualifiers: Narrative: Rheumatology recommendations at the state to hold home methotrexate, mycophenolate, hydroxychloroquine while she is on abx, and resume on DC. (8) C. difficile colitis Problem: Resolved Narrative: Resolved, however per ID at the [facility], she is to remain on bid vancomycin while she is prescribed antibiotics, which will be 4 weeks. She was checked for C. difficile overnight, which was negative. She is no longer on enteric precautions. (9) Hypoalbuminemia Problem: Chronic Narrative: Albumin of 1.5 today. She feels like she is eating better than she had been in the past. This could be part of the source for her lower extremity edema. She was seen by our patient portal representative, who is also following. Continue ensure with meals. (10) Chronic renal failure, stage 3 (moderate) Problem: Chronic Narrative: Creatinine increased to greater than 4 and GFR decreased to 17 during her last hospitalization. Nephrology notes did not specifically indicate the source of her renal failure, but suspect it was due to medications. She was switched from ampicillin to penicillin G and her acute renal failure resolved. Creatinine of 1.35 and GFR of 42 on current admission, and essentially unchanged on today's labs. Will check CMP twice weekly. she is having adequate urine output. (11) History of DVT (deep vein thrombosis) Problem: Chronic Narrative: She is prescribed xarelto for a remote DVT, and can continue. (12) Abdominal bloating Problem: Acute Narrative: Simethicone was added to her medication list as needed for bloating, however she has not used it yet. She does state that her bloating seems better today. (13) Recurrent UTI Problem: Chronic Narrative: Per DC summary from the [facility], she is to start qhs trimethoprim for prophylaxis when she has finished the PCN-G. (14) Urinary retention Problem: Chronic Narrative: [facility] notes state that it is thought her retention is secondary to her rectovaginal fistula. They recommend keeping the Kirby in until she is ambulatory, then removing. She has not yet been able to ambulate, but is working with PT. (15) Depression Problem: Suspected Qualifiers: Narrative: Toward the end of her last hospitalization here, her son expressed some concern about her showing depression symptoms. Will discuss treatment options. (16) Decreased mobility Problem: Chronic Narrative: She has not walked since the first part of March. Discussed importance of ambulating for her overall health. She feels like her knees will give out when she stands. Continue PT and OT. (17) Morbid obesity with BMI of 45.0-49.9, adult Problem: Chronic (18) halfway resident Problem: Chronic
[2019-05-07] MEDS ORDERED: FUROSEMIDE 10 MG/ML VIAL IV ONE (08:55)
[2019-05-07] MEDS: amLODIPine BESYLATE 5 MG TABLET PO SCH (09:26)
[2019-05-07] MEDS: MULTIVITAMINS 1 CAP CAPSULE PO SCH (09:26)
[2019-05-07] MEDS: FOLIC ACID 0.4 MG TABLET PO SCH (09:26)
[2019-05-07] MEDS: RIVAROXABAN 20 MG TABLET PO SCH (09:27)
[2019-05-07] MEDS: CYANOCOBALAMIN 1,000 MCG TABLET PO SCH (09:27)
[2019-05-07] MEDS: ASCORBIC ACID 500 MG TABLET PO SCH (09:27)
[2019-05-07] MEDS: ACETAMINOPHEN 325 MG TABLET PO PRN (11:14)
[2019-05-07] MEDS: INSULIN LISPRO 100 UNITS/ML VIAL SC SCH ×3 (12:06→20:41)
[2019-05-07] MEDS: oxyCODONE HCL 5 MG TABLET PO PRN ×2 (14:10→21:55)
[2019-05-07] MEDS: PENICILLIN POTASSIUM IV SCH (14:45)
[2019-05-07] MEDS: [UNRECOGNIZED DRUG - OTHER] IV SCH (14:45)
[2019-05-07] MEDS: LIDOCAINE TP SCH (20:46)
[2019-05-08] MEDS: VANCOMYCIN HCL 50 MG/ML BTL PO SCH ×2 (06:33→18:41)
[2019-05-08] MEDS: INSULIN LISPRO 100 UNITS/ML VIAL SC SCH ×4 (06:35→21:31)
[2019-05-08] MEDS: LEVOTHYROXINE SODIUM 112 MCG TABLET PO SCH (06:39)
[2019-05-08] MEDS: LYRICA 200 MG PO SCH ×3 (06:40→23:04)
[2019-05-08] MEDS: ACETAMINOPHEN 325 MG TABLET PO PRN ×2 (08:52→16:39)
[2019-05-08] MEDS: FOLIC ACID 0.4 MG TABLET PO SCH (08:53)
[2019-05-08] MEDS: MULTIVITAMINS 1 CAP CAPSULE PO SCH (08:53)
[2019-05-08] MEDS: ASCORBIC ACID 500 MG TABLET PO SCH (08:54)
[2019-05-08] MEDS: amLODIPine BESYLATE 5 MG TABLET PO SCH (08:54)
[2019-05-08] MEDS: CYANOCOBALAMIN 1,000 MCG TABLET PO SCH (08:54)
[2019-05-08] MEDS: RIVAROXABAN 20 MG TABLET PO SCH (08:54)
[2019-05-08] MEDS: [UNRECOGNIZED DRUG - OTHER] IV SCH (14:09)
[2019-05-08] MEDS: PENICILLIN POTASSIUM IV SCH (14:09)
[2019-05-08] MEDS: oxyCODONE HCL 5 MG TABLET PO PRN (18:47)
[2019-05-08] MEDS: LIDOCAINE TP SCH (21:25)
--- NOTE | 2019-05-08 23:45 | PN ---
Subjective - Date and Time Seen Date: 05/08/19 Time: 10:30 Subjective Narrative: Ivette reports no change. She has continued back pain but it is controlled. No nausea, vomiting, fever, or chills. She has no concerns. She is getting IV antibiotics for discitis. Objective - Vitals Vitals: Last Vital Signs Temp 36.4 C 05/08/19 18:22 Pulse 78 05/08/19 18:22 Resp 18 05/08/19 18:22 BP 140/41 05/08/19 18:22 Pulse Ox 99 05/08/19 18:22 - Exam Constitutional: Present: Alert, Oriented x3, Cooperative Respiratory: Present: lungs clear, normal breath sounds Cardiovascular/Chest: Present: regular rate, rhythm Abdomen: Present: Normal bowel sounds, soft, nontender, nondistended Skin Exam: Present: normal color, warm/dry, no cyanosis Lymphatic: Present: no adenopathy Appearance: Present: appropriate appearance, appropriate insight Eye contact: Present: cooperative, good eye contact, normal speech Cauti Physician Documentation - Urinary Catheter Management Urethral (Cutler) Urethral Indwelling: Yes Assessment/Plan Plan Narrative: No changes made today. She will continue antibiotics for discitis located at L4- S1. Her pain is controlled. - Problems/Diagnosis (1) Discitis Problem: Acute Qualifiers: Spinal region: lumbosacral Qualified Code(s): M46.47 - Discitis, unspecified, lumbosacral region (2) Bacteremia Problem: Acute (3) Morbid obesity with BMI of 45.0-49.9, adult Problem: Chronic (4) Rectovaginal fistula Problem: Chronic (5) Rheumatoid arthritis Problem: Chronic Qualifiers: (6) C. difficile colitis Problem: Resolved
[2019-05-09 06:47] LABS: Hematocrit 25.5 % (37.0-47.0); Mean Cell Volume 107.6 fl (78-100); Mean Corpuscular Hemoglobin 33.3 pg (27-31); Platelet Count 156 K/mm3 (150-450); Red Blood Count 2.37 M/mm3 (4.2-5.4); Red Cell Distribution Width 17.2 % (11.5-14.0); White Blood Count 4.6 K/mm3 (4.0-10.5)
[2019-05-09 06:49] LABS: Hemoglobin 7.9 gm/dL (12.5-16.0)
[2019-05-09 06:50] LABS: Total Cells Counted 100
[2019-05-09] MEDS: VANCOMYCIN HCL 50 MG/ML BTL PO SCH ×2 (06:52→18:58)
[2019-05-09] MEDS: INSULIN LISPRO 100 UNITS/ML VIAL SC SCH ×4 (06:53→20:44)
[2019-05-09] MEDS: LYRICA 200 MG PO SCH ×3 (06:54→22:41)
[2019-05-09 06:55] LABS: Atypical (Reactive) Lymph 8 % (0-2); Eosinophil 4 % (0-3); Lymphocyte 25 % (20-51); Monocyte 13 % (0-9); Neutrophil 50 % (42-75); Neutrophil # 2.3 K/mm3 (1.3-6.0); Platelet Estimate Normal (NORMAL); RBC Morphology Normal (NORMAL)
[2019-05-09] MEDS: LEVOTHYROXINE SODIUM 112 MCG TABLET PO SCH (06:55)
[2019-05-09 06:57] LABS: Albumin * 1.3 gm/dl (3.4-5.0); Anion Gap 11.6 mmol/L (6.8-13.8); BUN/Creatinine Ratio 15.2 (9.0-21.6); Bilirubin, Total 0.2 mg/dL (0.0-1.1); Ca. Corrected For Albumin 9.7 mg/dL (8.4-10.2); Calcium * 7.9 mg/dL (7.9-10.9); Carbon Dioxide 27.5 mmol/L (24-32.6); Potassium 4.1 mmol/L (3.4-4.6); Total Protein 5.6 gm/dL (6.2-8.2)
[2019-05-09] MEDS: FOLIC ACID 0.4 MG TABLET PO SCH (08:47)
[2019-05-09] MEDS: ACETAMINOPHEN 325 MG TABLET PO PRN (08:47)
[2019-05-09] MEDS: CYANOCOBALAMIN 1,000 MCG TABLET PO SCH (08:48)
[2019-05-09] MEDS: RIVAROXABAN 20 MG TABLET PO SCH (08:48)
[2019-05-09] MEDS: amLODIPine BESYLATE 5 MG TABLET PO SCH (08:48)
[2019-05-09] MEDS: ASCORBIC ACID 500 MG TABLET PO SCH (08:48)
[2019-05-09] MEDS: MULTIVITAMINS 1 CAP CAPSULE PO SCH (08:48)
[2019-05-09] MEDS: [UNRECOGNIZED DRUG - OTHER] IV SCH (14:07)
[2019-05-09] MEDS: PENICILLIN POTASSIUM IV SCH (14:07)
[2019-05-09] MEDS: LIDOCAINE TP SCH (20:43)
--- NOTE | 2019-05-09 21:52 | PN ---
Subjective - Date and Time Seen Date: 05/09/19 Time: 11:00 Subjective Narrative: Ivette reports no concerns and no changes. Pain is controlled. No nausea, vomiting, fever, or chills. Objective - Vitals Vitals: Last Vital Signs Temp 36.7 C 05/09/19 18:45 Pulse 85 05/09/19 18:45 Resp 17 05/09/19 18:45 BP 126/39 05/09/19 18:45 Pulse Ox 100 05/09/19 18:45 - Abnormal Lab Findings Abnormal Lab Findings: Abnormal Lab Results 05/09/19 05/09/19 Range/Units 06:30 06:30 RBC 2.37 L (4.2-5.4) M/mm3 Hgb 7.9 L* (12.5-16.0) gm/dL Hct 25.5 L (37.0-47.0) % MCV 107.6 H (78-100) fl MCH 33.3 H (27-31) pg MCHC 31.0 L (32-36) g/dl RDW 17.2 H (11.5-14.0) % Monocytes % (Manual) 13 H (0-9) % Eosinophils % (Manual) 4 H (0-3) % Lymphocytes # (Manual) 1.2 L (1.5-3.5) k/mm3 Atypic/Reactive Lymphs 8 H (0-2) % Est GFR (Non-Af Amer) 45 L (60-130) mL/min Random Glucose 115 H D (70-110) mg/dL AST 76 H (0-48) U/L Alkaline Phosphatase 270 H (50-170) U/L Total Protein 5.6 L (6.2-8.2) gm/dL Albumin 1.3 L (3.4-5.0) gm/dl - Exam Constitutional: Present: Alert, Oriented x3, Cooperative ENT Exam: Present: hearing grossly normal Respiratory: Present: lungs clear, normal breath sounds Cardiovascular/Chest: Present: regular rate, rhythm, no murmur Abdomen: Present: Normal bowel sounds, soft, nontender, nondistended Skin Exam: Present: normal color, warm/dry, no cyanosis Cauti Physician Documentation - Urinary Catheter Management Urethral (Cutler) Urethral Indwelling: Yes Assessment/Plan Plan Narrative: Continue IV antibiotics for discitis. She is clinically doing well. No changes today. - Problems/Diagnosis (1) Discitis Problem: Acute Qualifiers: Spinal region: lumbosacral Qualified Code(s): M46.47 - Discitis, unspecified, lumbosacral region (2) Bacteremia Problem: Acute (3) Morbid obesity with BMI of 45.0-49.9, adult Problem: Chronic (4) Rectovaginal fistula Problem: Chronic (5) Rheumatoid arthritis Problem: Chronic Qualifiers: (6) C. difficile colitis Problem: Resolved
[2019-05-09] MEDS: oxyCODONE HCL 5 MG TABLET PO PRN (22:41)
[2019-05-10] MEDS: LYRICA 200 MG PO SCH ×3 (07:23→21:36)
[2019-05-10] MEDS: INSULIN LISPRO 100 UNITS/ML VIAL SC SCH ×4 (07:23→21:26)
[2019-05-10] MEDS: LEVOTHYROXINE SODIUM 112 MCG TABLET PO SCH (07:24)
[2019-05-10] MEDS: VANCOMYCIN HCL 50 MG/ML BTL PO SCH ×2 (07:38→17:28)
--- NOTE | 2019-05-10 08:45 | PN ---
Subjective - Date and Time Seen Date: 05/10/19 Time: 08:17 Subjective Narrative: Her nurse reports she declined getting up this morning. She feels like her bloating is better. She did not notice an improvement in her edema after Lasix administration. Objective - Review of Systems Generalized/Overall Review: Denies: Fever Respiratory: Denies: Shortness of Breath Cardiac: Reports: Edema Abdominal: Denies: Vomiting, Constipation Genitourinary Symptoms: Reports: Other - kirby in place Musculoskeletal Complaints: Reports: Back Pain Neurological: Reports: Weakness - Vitals Vitals: Last Vital Signs Temp 36.3 C 05/10/19 06:00 Pulse 78 05/10/19 06:00 Resp 18 05/10/19 06:00 BP 138/52 05/10/19 06:00 Pulse Ox 94 05/10/19 06:00 - Exam Constitutional: Present: Alert, No distress, Morbidly obese ENT Exam: Present: other - Cochlear device behind right ear Respiratory: Present: lungs clear, no respiratory distress Cardiovascular/Chest: Present: regular rate, rhythm, systolic murmur Abdomen: Present: soft, nontender, obese Extremity: Present: lower extremity edema - 2+ bilaterally Eye contact: Present: cooperative Cauti Physician Documentation - Urinary Catheter Management Urethral (Kirby) Urethral Indwelling: Yes Assessment/Plan - Problems/Diagnosis (1) Discitis of lumbar region Problem: Suspected Narrative: Neurosurgery at the [facility] recommends continuing penicillin G through May 30, and follow-up at that time. Unable to obtain MRI due to her cochlear implant. (2) Bacteremia Problem: Chronic Narrative: She has had enterococcal faecalis bacteremia twice since 10 February 2019. She was admitted to our facility on April 15, transferred to the [facility] on April 23, and transferred back here on May 02. Negative CARON. Her specialists at the feel like the source is from diskitis/osteomyelitis. She will be on continuous PCN-G until she can follow up with neurosurgery and ID at the [facility] in 4 weeks, which will be May 30. She is not requiring acute care at this time, and can DC to a SNF facility that will manage a 24 hour PCN-G infusion. document imaging specialist have been working on finding a facility, and appreciate their assistance. They have thus far been unable to find an accepting facility. (3) Rectovaginal fistula Problem: Chronic Narrative: This is been present since 2017. She previously did not want correction, but with her ongoing infections, she has now agreed to possible repair. Has seen colorectal surgery, and she was not a surgical candidate while at the [facility]. Her surgeon does not feel like the fistula is the source of her infections. Chart review shows she is to see them again in 4 weeks, which will be May 30. The fistula may be contributing to her urinary retention. She's been unable to urinate without the kirby. Recommendations from the are to attempt removal when she is able to ambulate, but she's been unable to ambulate since early March after a fall. (4) Chronic low back pain Problem: Chronic Narrative: She saw neurosurgery at the . She has a cochlear implant, and can not obtain an MRI. CT showed possible L4-S1 diskitis/osteomyelitis, and WBC can showed abnormal bone radiotracer uptake in the lumbar spine at L3-S1, but WBC activity was negative, and can represent false negative. Neurosurgery and ID recommendations are to continue continuous PCN-G for 4 weeks, which will be around 05/31/19. Back pain better controlled with oxycodone than norco, and will continue. (5) Anemia Problem: Chronic Narrative: Hemoglobin has been in the mid to upper 7 range this admission. She is asymptomatic and vitals are normal. Her baseline appears to be around 9.5, which was her level on her initial visit here in March 2019. I assume this is due to her recent decreased renal function and poor nutrition. Continue Ensure with meals, and transfuse if Hgb less than 7.0. Will check twice weekly. (6) Diabetes mellitus Problem: Chronic Qualifiers: Narrative: Sliding scale insulin was added to her orders on . She has been administered 3 units on 2 separate occasions. This morning's glucose was 109. We will continue to check, and if she were to continue really not need insulin for a few days in a row, will suspend glucose checks with meals. (7) Hypoalbuminemia Problem: Chronic Narrative: Her albumin continues to decrease despite adding Ensure. However, she has difficulty drinking it after meals because she is full. She cannot drink it unless it is cold. Yesterday's level of 1.3. Her p.o. intake is poor. she has some lower extremity edema, and compression therapy may be helpful. Will need to have goals of care discussions. This was attempted at the [facility], but she did not respond favorable, and the attempt was aborted. (8) Rheumatoid arthritis Problem: Chronic Qualifiers: Narrative: Rheumatology recommendations at the state to hold home methotrexate, mycophenolate, hydroxychloroquine while she is on abx, and resume on DC. (9) C. difficile colitis Problem: Resolved Narrative: Resolved, however per ID at the [facility], she is to remain on bid vancomycin while she is prescribed antibiotics, which will be 4 weeks. She was checked for C. difficile overnight, which was negative. She is no longer on enteric precautions. (10) Chronic renal failure, stage 3 (moderate) Problem: Chronic Narrative: GFR of 45, creatinine of 1.25 on labs from 05/09/19. (11) Pancytopenia Problem: Resolved Narrative: Chart review shows this appears to be a chronic problem for her. Her white blood cells are normal at 4., and platelets normal at 156. (12) History of DVT (deep vein thrombosis) Problem: Chronic Narrative: She is prescribed xarelto for a remote DVT, and can continue. (13) Abdominal bloating Problem: Acute Narrative: Improved. PRN simethicone, which she has not needed thus far. (14) Recurrent UTI Problem: Chronic Narrative: Per DC summary from the [facility], she is to start qhs trimethoprim for prophylaxis when she has finished the PCN-G. (15) Urinary retention Problem: Chronic Narrative: [facility] notes state that it is thought her retention is secondary to her rectovaginal fistula. They recommend keeping the Kirby in until she is ambulatory, then removing. She has not yet been able to ambulate, but is working with PT. If she is unable to DC the kirby catheter, a suprapubic catheter was mentioned, but that may not completely alleviate her recurrent UTIs. (16) Depression Problem: Suspected Qualifiers: (17) Decreased mobility Problem: Chronic Narrative: She has not walked since the first part of March. Per her nurse, she declined trying to get up this morning. She has felt like her knees will give out when she attempts to stand. Continue PT and OT. Will need to again have go als of care discussions. (18) Morbid obesity with BMI of 45.0-49.9, adult Problem: Chronic (19) [facility] resident Problem: Chronic
[2019-05-10] MEDS: MULTIVITAMINS 1 CAP CAPSULE PO SCH (09:57)
[2019-05-10] MEDS: ASCORBIC ACID 500 MG TABLET PO SCH (09:57)
[2019-05-10] MEDS: FOLIC ACID 0.4 MG TABLET PO SCH (09:57)
[2019-05-10] MEDS: amLODIPine BESYLATE 5 MG TABLET PO SCH (09:57)
[2019-05-10] MEDS: CYANOCOBALAMIN 1,000 MCG TABLET PO SCH (09:57)
[2019-05-10] MEDS: RIVAROXABAN 20 MG TABLET PO SCH (09:58)
[2019-05-10] MEDS: oxyCODONE HCL 5 MG TABLET PO PRN ×2 (10:45→21:36)
[2019-05-10] MEDS: PENICILLIN POTASSIUM IV SCH (13:49)
[2019-05-10] MEDS: ACETAMINOPHEN 325 MG TABLET PO PRN (13:49)
[2019-05-10] MEDS: [UNRECOGNIZED DRUG - OTHER] IV SCH (13:49)
[2019-05-10] MEDS: LIDOCAINE TP SCH (21:33)
[2019-05-11] MEDS: LYRICA 200 MG PO SCH ×4 (02:53→22:09)
[2019-05-11] MEDS: VANCOMYCIN HCL 50 MG/ML BTL PO SCH ×2 (07:30→17:17)
[2019-05-11] MEDS: LEVOTHYROXINE SODIUM 112 MCG TABLET PO SCH (07:45)
[2019-05-11] MEDS: INSULIN LISPRO 100 UNITS/ML VIAL SC SCH ×4 (07:52→20:15)
--- NOTE | 2019-05-11 09:14 | PN ---
Subjective - Date and Time Seen Date: 05/11/19 Time: 08:30 Subjective Narrative: Patient and her nurse reported no new concerns. Her back pain was worse yesterday after being up in the chair and she feels like it is because it was crooked. She is unable to adjust her position on her own. Objective - Review of Systems Generalized/Overall Review: Denies: Fever Respiratory: Denies: Shortness of Breath Cardiac: Reports: Edema. Denies: Chest Pain Abdominal: Denies: Vomiting Genitourinary Symptoms: Reports: Other - kirby catheter for retention Musculoskeletal Complaints: Reports: Back Pain Neurological: Reports: Weakness Skin: Reports: No Symptoms Reported - Vitals Vitals: Last Vital Signs Temp 36.7 C 05/11/19 06:43 Pulse 83 05/11/19 06:43 Resp 20 05/11/19 06:43 BP 134/40 05/11/19 06:43 Pulse Ox 99 05/11/19 06:43 - Exam Constitutional: Present: Alert, Cooperative, Morbidly obese Respiratory: Present: lungs clear, normal breath sounds Cardiovascular/Chest: Present: regular rate, rhythm, systolic murmur Abdomen: Present: soft, nontender, obese /Rectal: Present: Other - Kirby in place Extremity: Present: lower extremity edema - 2+ bilaterally Eye contact: Present: cooperative Cauti Physician Documentation - Urinary Catheter Management Urethral (Kirby) Urethral Indwelling: Yes Assessment/Plan Plan Narrative: 45 minutes spent with patient and writing this note. - Problems/Diagnosis (1) Discitis of lumbar region Problem: Suspected Narrative: Neurosurgery at the [facility] recommends continuing penicillin G through May 30, and follow-up at that time. Imaging done at the [facility] showed L4-S1 discitis/osteomyelitis. Unable to obtain MRI due to her cochlear implant. (2) Bacteremia Problem: Chronic Narrative: She has had enterococcal faecalis bacteremia twice since 10 February 2019. She was admitted to our facility on April 15, transferred to the [facility] on April 23, and transferred back here on May 02. Negative CARON. Her specialists at the feel like the source is from diskitis/osteomyelitis. She will be on continuous PCN-G until she can follow up with neurosurgery and ID at the of in 4 weeks, which will be May 30. She is not requiring acute care at this time, and can DC to a SNF facility that will manage a 24 hour PCN-G infusion. patient care technician have been working on finding a facility, and appreciate their assistance. They have thus far been unable to find an accepting facility. (3) Rectovaginal fistula Problem: Chronic Narrative: This is been present since 2017. She previously did not want correction, but with her ongoing infections, she has now agreed to possible repair. Has seen colorectal surgery, and she was not a surgical candidate while at the [facility]. Her surgeon does not feel like the fistula is the source of her infections. Chart review shows she is to see them again in 4 weeks, which will be May 30. The fistula may be contributing to her urinary retention. She's been unable to urinate without the kirby. Recommendations from the are to attempt removal when she is able to ambulate, but she's been unable to ambulate since early March after a fall. She will be able to heal better if she is ambulatory, and being bedbound highly increases her risk of multiple complications developing. (4) Chronic low back pain Problem: Chronic Narrative: She saw neurosurgery at the . She has a cochlear implant, and can not obtain an MRI. CT showed possible L4-S1 diskitis/osteomyelitis, and WBC can showed abnormal bone radiotracer uptake in the lumbar spine at L3-S1, but WBC activity was negative, and can represent false negative. Neurosurgery and ID recommendations are to continue continuous PCN-G for 4 weeks to treat the potential diskitis/OSM, which will be around 05/31/19. Back pain better controlled with oxycodone than norco, and will continue. (5) Anemia Problem: Chronic Narrative: Hemoglobin has been in the mid to upper 7 range this admission. She is asymptomatic and vitals are normal. Her baseline appears to be around 9.5, which was her level on her initial visit here in March 2019. I assume this is due to her recent decreased renal function and poor nutrition. Continue Ensure with meals, and transfuse if Hgb less than 7.0. Will check twice weekly. (6) Diabetes mellitus Problem: Chronic Qualifiers: Narrative: Sliding scale insulin was added to her orders on 05/06 for overall increasing glucose. She required 11 U humalog yesterday. Increasing glucose is somewhat concerning for development of a new process, and will continue to need monitoring. (7) Hypoalbuminemia Problem: Chronic Narrative: Her albumin continues to decrease despite adding Ensure. However, she has difficulty drinking it after meals because she is full. She cannot drink it unless it is cold. 05/09/19 level of 1.3. Her p.o. intake is poor. She has some lower extremity edema, and compression therapy may be helpful. Will need to have goals of care discussions. This was attempted at the [facility], but she did not respond favorable, and the attempt was aborted. (8) Rheumatoid arthritis Problem: Chronic Qualifiers: Narrative: Rheumatology recommendations at the state to hold home methotrexate, mycophenolate, hydroxychloroquine while she is on abx, and resume on DC. (9) C. difficile colitis Problem: Resolved Narrative: Resolved, however per ID at the [facility], she is to remain on bid vancomycin while she is prescribed antibiotics, which will be 4 weeks. She was checked for C. difficile this admission, which was negative. She is no longer on enteric precautions. (10) Chronic renal failure, stage 3 (moderate) Problem: Chronic Narrative: GFR of 45, creatinine of 1.25 on labs from 05/09/19. She has gone into acute renal failure during hospitalizations twice this year. (11) Pancytopenia Problem: Resolved Narrative: Chart review shows this appears to be a chronic problem for her. Her white blood cells are normal at 4.6, and platelets normal at 156. (12) History of DVT (deep vein thrombosis) Problem: Chronic Narrative: She is prescribed xarelto for a remote DVT, and can continue. (13) Abdominal bloating Problem: Acute Narrative: Improved. PRN simethicone, which she has not needed thus far. (14) Recurrent UTI Problem: Chronic Narrative: Per DC summary from the [facility], she is to start qhs trimethoprim for prophylaxis when she has finished the PCN-G. (15) Urinary retention Problem: Chronic Narrative: [facility] notes state that it is thought her retention is secondary to her rectovaginal fistula. They recommend keeping the Kirby in until she is ambulatory, then removing. She has not yet been able to ambulate, but is working with PT. If she is unable to DC the kirby catheter, a suprapubic catheter was mentioned, but that may not completely alleviate her recurrent UTIs. (16) Depression Problem: Suspected Qualifiers: (17) Decreased mobility Problem: Chronic Narrative: She has not walked since the first part of March. Her ability to work with PT has been very limited. She has felt like her knees will give out when she attempts to stand. Continue PT and OT. Discussed importance of mobility for healing with her this morning, and will need to continue to work up to goals of care discussions. Per [facility] notes, she got very upset when this was attempted during their hospitalization. (18) Morbid obesity with BMI of 45.0-49.9, adult Problem: Chronic (19) [facility] resident Problem: Chronic
[2019-05-11] MEDS: CYANOCOBALAMIN 1,000 MCG TABLET PO SCH (10:21)
[2019-05-11] MEDS: FOLIC ACID 0.4 MG TABLET PO SCH (10:21)
[2019-05-11] MEDS: RIVAROXABAN 20 MG TABLET PO SCH (10:22)
[2019-05-11] MEDS: ASCORBIC ACID 500 MG TABLET PO SCH (10:22)
[2019-05-11] MEDS: MULTIVITAMINS 1 CAP CAPSULE PO SCH (10:22)
[2019-05-11] MEDS: amLODIPine BESYLATE 5 MG TABLET PO SCH (10:22)
[2019-05-11] MEDS: ACETAMINOPHEN 325 MG TABLET PO PRN ×2 (10:29→18:46)
[2019-05-11] MEDS: PENICILLIN POTASSIUM IV SCH (15:21)
[2019-05-11] MEDS: [UNRECOGNIZED DRUG - OTHER] IV SCH (15:21)
[2019-05-11] MEDS: LIDOCAINE TP SCH (20:13)
[2019-05-11] MEDS: oxyCODONE HCL 5 MG TABLET PO PRN (22:08)
[2019-05-12] MEDS: VANCOMYCIN HCL 50 MG/ML BTL PO SCH (05:22)
[2019-05-12] MEDS: INSULIN LISPRO 100 UNITS/ML VIAL SC SCH (06:40)
[2019-05-12] MEDS: LYRICA 200 MG PO SCH (06:41)
[2019-05-12] MEDS: LEVOTHYROXINE SODIUM 112 MCG TABLET PO SCH (06:42)
[2019-05-12] MEDS: ACETAMINOPHEN 325 MG TABLET PO PRN (06:45)
--- NOTE | 2019-05-12 08:10 | DS ---
(1) Discitis of lumbar region Problem: Suspected (2) Bacteremia Problem: Chronic (3) Rectovaginal fistula Problem: Chronic (4) Chronic low back pain Problem: Chronic (5) Anemia Problem: Chronic (6) Diabetes mellitus Problem: Chronic Qualifiers: (7) Hypoalbuminemia Problem: Chronic (8) Rheumatoid arthritis Problem: Chronic Qualifiers: (9) C. difficile colitis Problem: Resolved (10) Chronic renal failure, stage 3 (moderate) Problem: Chronic (11) Pancytopenia Problem: Resolved (12) History of DVT (deep vein thrombosis) Problem: Chronic (13) Abdominal bloating Problem: Acute (14) Recurrent UTI Problem: Chronic (15) Urinary retention Problem: Chronic (16) Depression Problem: Suspected Qualifiers: (17) Decreased mobility Problem: Chronic (18) Morbid obesity with BMI of 45.0-49.9, adult Problem: Chronic (19) snf resident Problem: Chronic Date of Discharge:: 05/12/19 Hospital Course: Patient returned to our facility after a temporary stay at the [facility]. She was initially admitted to our facility on 04/16/19 for intractable back pain and treated for enterococcal bacteremia, klebsiella UTI, and c diff colitis. She was also admitted to [facility] in [place] in February, also with enterococcal bacteremia. She developed renal failure and was transferred to the [facility] on 04/23. While there, she was seen by neurosurgery, infectious disease, and she was started on treatment for discitis with continuous PCN-G. She was transferred back here on 05/03/19. She is to have weekly CBC with diff, CMP, ESR, CRP. Each of her problems and current plan listed below. (1) Discitis of lumbar region Problem: Suspected Narrative: Neurosurgery at the [facility] recommends continuing penicillin G through May 30, and follow-up with Dr. Welsh at that time. Imaging done at the [facility] showed L4-S1 discitis/osteomyelitis. Unable to obtain MRI due to her cochlear implant. (2) Bacteremia Problem: Chronic Narrative: She has had enterococcal faecalis bacteremia twice since 10 February 2019. She was admitted to our facility on April 15, transferred to the [facility] on April 23, and transferred back here on May 02. Negative CARON. Her specialists at the feel like the source is from diskitis/osteomyelitis. She will be on continuous PCN-G until she can follow up with neurosurgery and ID at the [facility] in 4 weeks, which will be May 30. She is not requiring acute care at this time, and can DC to a SNF facility that will manage a 24 hour PCN-G infusion. (3) Rectovaginal fistula Problem: Chronic Narrative: This is been present since 2017. She previously did not want correction, but with her ongoing infections, she has now agreed to possible repair. Has seen co lorectal surgery, and she was not a surgical candidate while at the [facility]. Her surgeon does not feel like the fistula is the source of her infections. Chart review shows she is to see them again in 4 weeks, which will be May 30. The fistula may be contributing to her urinary retention. She's been unable to urinate without the kirby. Recommendations from the are to attempt removal when she is able to ambulate, but she's been unable to ambulate since early March after a fall. She will be able to heal better if she is ambulatory, and being bedbound highly increases her risk of multiple complications developing. (4) Chronic low back pain Problem: Chronic Narrative: She saw neurosurgery at the . She has a cochlear implant, and can not obtain an MRI. CT showed possible L4-S1 diskitis/osteomyelitis, and WBC can showed abnormal bone radiotracer uptake in the lumbar spine at L3-S1, but WBC activity was negative, and can represent false negative. Neurosurgery and ID recommendations are to continue continuous PCN-G for 4 weeks to treat the potential diskitis/OSM, which will be around 05/31/19. Back pain better controlled with oxycodone than norco, and will continue. She has been taking her home lyrica. (5) Anemia Problem: Chronic Narrative: Hemoglobin has been in the mid to upper 7 range this admission. She is asymptomatic and vitals are normal. Her baseline appears to be around 9.5, which was her level on her initial visit here in March 2019. I assume this is due to her recent decreased renal function and poor nutrition. Continue Ensure with meals, and transfuse if Hgb less than 7.0. (6) Diabetes mellitus Problem: Chronic Qualifiers: Narrative: Sliding scale insulin was added to her orders on 05/06 for overall increasing glucose. (7) Hypoalbuminemia Problem: Chronic Narrative: Her albumin continues to decrease despite adding Ensure. However, she has difficulty drinking it after meals because she is full. She cannot drink it unless it is cold. 05/09/19 level of 1.3. Her p.o. intake is poor. She has some lower extremity edema, and compression therapy may be helpful. Will need to have goals of care discussions. This was attempted at the [facility], but she did not respond favorable, and the attempt was aborted. (8) Rheumatoid arthritis Problem: Chronic Qualifiers: Narrative: Rheumatology recommendations at the state to hold home methotrexate, mycophenolate, hydroxychloroquine while she is on abx, and resume on DC. (9) C. difficile colitis Problem: Resolved Narrative: Resolved, however per ID at the [facility], she is to remain on bid vancomycin while she is prescribed antibiotics, which will be 4 weeks. She was checked for C. difficile this admission, which was negative. She is no longer on enteric precautions. (10) Chronic renal failure, stage 3 (moderate) Problem: Chronic Narrative: GFR of 45, creatinine of 1.25 on labs from 05/09/19. She has gone into acute renal failure during hospitalizations twice this year. (11) Pancytopenia Problem: Resolved Narrative: Chart review shows this appears to be a chronic problem for her. Her white blood cells are normal at 4.6, and platelets normal at 156. (12) History of DVT (deep vein thrombosis) Problem: Chronic Narrative: She is prescribed xarelto for a remote DVT, and can continue. (13) Abdominal bloating Problem: Acute Narrative: Improved. PRN simethicone, which she has not needed thus far. (14) Recurrent UTI Problem: Chronic Narrative: Per DC summary from the [facility], she is to start qhs trimethoprim for prophylaxis when she has finished the PCN-G. (15) Urinary retention Problem: Chronic Narrative: [facility] notes state that it is thought her retention is secondary to her rectovaginal fistula. They recommend keeping the Kirby in until she is ambulatory, then removing. She has not yet been able to ambulate, but is working with PT. If she is unable to DC the kirby catheter, a suprapubic catheter was mentioned, but that may not completely alleviate her recurrent UTIs. (16) Depression Problem: Suspected Qualifiers: (17) Decreased mobility Problem: Chronic Narrative: She has not walked since the first part of March. Her ability to work with PT has been very limited. She has felt like her knees will give out when she attempts to stand. Continue PT and OT. Discussed importance of mobility for healing with her this morning, and will need to continue to work up to goals of care discussions. Per [facility] notes, she got very upset when this was attempted during their hospitalization. (18) Morbid obesity with BMI of 45.0-49.9, adult Problem: Chronic (19) snf resident Problem: Chronic Procedures Performed: none Results and Findings: Lab Pending Results 05/04/19 06:25: WBC 3.7 L, RBC 2.40 L, Hgb 7.9 L*, Hct 26.3 L, MCV 109.6 H, MCH 32.9 H, MCHC 30.0 L, RDW 18.3 H, Plt Count 201, MPV 9.5, Immature Gran % (Auto) 0.80 H, Immature Gran # (Auto) 0.03, Neutrophils % 59.8, Lymphocytes % 15.8 L, Monocytes % 20.1 H, Eosinophils % 2.4, Basophils % 1.1 H, Nucleated RBC % 0.0, Neutrophils # 2.2, Lymphocytes # 0.59 L, Monocytes # 0.8, Eosinophils # 0.1, Absolute Basophils 0.0 05/04/19 06:25: Sodium 139, Plasma Sodium 139, Potassium 4.1, Chloride 106, Carbon Dioxide 26.0, Anion Gap 11.1, BUN 14 D, Creatinine 1.35 D, Est GFR (Non-Af Amer) 42 L D, BUN/Creatinine Ratio 10.4, Random Glucose 104, Calcium 8.8, Calcium Adj for Albumin 10.3 H, Total Bilirubin 0.3, AST 71 H, ALT 32, Alkaline Phosphatase 280 H, Total Protein 6.1 L, Albumin 1.7 L 05/06/19 22:20: Stl C.difficile Tox A&B Negative 05/07/19 07:00: WBC 4.1, RBC 2.28 L, Hgb 7.5 L*, Hct 24.8 L, MCV 108.8 H, MCH 32.9 H, MCHC 30.2 L, RDW 18.0 H, Plt Count 175, MPV 10.3, Immature Gran % (Auto) Roof Technician, Immature Gran # (Auto) Roof Technician, Neutrophils % Roof Technician, Neutrophils % (Manual) 46, Lymphocytes % Roof Technician, Lymphocytes % (Manual) 32, Monocytes % Roof Technician, Monocytes % (Manual) 21 H, Eosinophils % Roof Technician, Eosinophils % (Manual) 1, Basophils % Roof Technician, Nucleated RBC % Roof Technician, Neutrophils # Roof Technician, Neutrophils # (Manual) 1.9, Lymphocytes # Roof Technician, Lymphocytes # (Manual) 1.3 L, Monocytes # Roof Technician, Monocytes # (Manual) 0.9, Eosinophils # Roof Technician, Eosinophils # (Manual) 0.0, Absolute Basophils Roof Technician, Platelet Estimate Normal, Anisocytosis 1+, Spherocytes 1+ 05/07/19 07:00: Sodium 135, Plasma Sodium 137, Potassium 5.5 H D, Chloride 103, Carbon Dioxide 26.4, Anion Gap 11.1, BUN 15, Creatinine 1.29, Est GFR (Non-Af A zabrina) 44 L, BUN/Creatinine Ratio 11.6, Random Glucose 246 H, Calcium 8.2, Calcium Adj for Albumin 9.9, Total Bilirubin 0.2, AST 74 H, ALT 31, Alkaline Phosphatase 256 H, Total Protein 5.5 L, Albumin 1.5 L 05/09/19 06:30: WBC 4.6, RBC 2.37 L, Hgb 7.9 L*, Hct 25.5 L, MCV 107.6 H, MCH 33.3 H, MCHC 31.0 L, RDW 17.2 H, Plt Count 156, MPV 10.0, Neutrophils % (Manual) 50, Lymphocytes % (Manual) 25, Monocytes % (Manual) 13 H, Eosinophils % (Manual) 4 H, Neutrophils # (Manual) 2.3, Lymphocytes # (Manual) 1.2 L, Monocytes # (Manual) 0.6, Eosinophils # (Manual) 0.2, Atypic/Reactive Lymphs 8 H, Platelet Estimate Normal, RBC Morphology Normal 05/09/19 06:30: Sodium 139, Plasma Sodium 139, Potassium 4.1 D, Chloride 104, Carbon Dioxide 27.5, Anion Gap 11.6, BUN 19, Creatinine 1.25, Est GFR (Non-Af Amer) 45 L, BUN/Creatinine Ratio 15.2, Random Glucose 115 H D, Calcium 7.9, Calcium Adj for Albumin 9.7, Total Bilirubin 0.2, AST 76 H, ALT 36, Alkaline Beverley sphatase 270 H, Total Protein 5.6 L, Albumin 1.3 L Discharge Location: Other - [facility] Disposition: SNF Condition: Fair Level of Care: SNF Discharge Activity: Activity as tolerated Discharge Diet: General/regular food [facility] Therapy: Physical Therapy, Occupation Therapy Additional Patient Instructions (free text): [facility] Radiology [place] appointment- FridayMay 30 at 9 AM, arrive by 0830. [address] [place], [place] [phone] [facility] Radiology CT appointment -FridayMay 30 at 10 AM [address] [place], [place] [phone] [facility] Medicine Specialty Clinic: Infectious Disease -FridayMay 30 at 11 AM, arrive by 10:45 AM [address] [place], [place] [phone] [facility] Neurosurgery Clinic- Dr.Patrick Welsh- FridayMay 30 at 2:30 PM [address] [place], [place] [phone] [facility] Digestive Diseases clinic- Dr.John Saldana- FridayJune 01 at 0800, arrive by 7:40 AM [address] [place], [place] [phone] Dr Ashby to follow at [facility]. Call report to [phone]. Fax orders to [phone]. Prescriptions (Any new or edited meds): Dextrose 5 % in Water [Dextrose 5%/Water] 42 ml IV Q24H #1 bag Transmission Status: Pending to [facility] Heparin Sodium,Porcine/Pf [Heparin Lock Flush Syringe] 500 units IV PRN PRN #1 disp.syrin PRN Reason: blood draw Transmission Status: Pending to [facility] Insulin Lispro [Humalog] 0 units SC ACHSINS #1 vial Transmission Status: Pending to [facility] oxyCODONE HCL [Oxycodone] 5 mg PO Q6H PRN #60 tab PRN Reason: Pain Transmission Status: Received by [facility] Penicillin G Potassium 20,000,000 unit IV Q24H #1 vial Transmission Status: Pending to [facility] Penicillin G Potassium 4 millionunt IV Q24H #1 vial Transmission Status: Pending to [facility] Vancomycin HCl [Vancomycin] 125 mg PO Q12H #40 tab Transmission Status: Pending to [facility] Complete Home Medications List: Complete Home Medication List: Cyanocobalamin (Vitamin B-12) [Vitamin B-12] 1,000 mcg PO DAILY 03/26/19 Folic Acid 0.8 mg PO DAILY 03/26/19 Levothyroxine Sodium [Synthroid] 112 mcg PO DAILY 03/26/19 Lidocaine [Lidocaine Pain Relief] 1 ea TOPICAL HS 03/26/19 Multivitamin [One Daily] 1 ea PO DAILY 03/26/19 Rivaroxaban [Xarelto] 10 mg PO DAILY 03/26/19 amLODIPine BESYLATE [Norvasc] 5 mg PO DAILY 03/26/19 Bisacodyl 10 mg RC DAILY PRN 04/16/19 Lidocaine HCl [Aspercreme Lidocaine] 76.5 gm TOPICAL QID PRN 04/16/19 Menthol/Zinc Oxide [Calmoseptine Ointment] 71 gm TOPICAL BID 04/16/19 Saccharomyces Boulardii [Probiotic] 250 mg PO DAILY 04/16/19 Acetaminophen [Tylenol] 650 mg PO Q6H PRN tab 04/24/19 Ascorbic Acid [Vitamin C] 500 mg PO DAILY 05/03/19 Aspirin [Aspirin EC] 81 mg PO DAILY 05/03/19 Atorvastatin Calcium 10 mg PO DAILY 05/03/19 Gabapentin 200 mg PO TID 05/03/19 Hydroxychloroquine Sulfate [Plaquenil] 200 mg PO DAILY 05/03/19 Vancomycin HCl [Vancomycin] 125 ml PO BID 05/03/19 Pregabalin [Lyrica] 200 mg PO Q8H 05/05/19 Dextrose 5 % in Water [Dextrose 5%/Water] 42 ml IV Q24H #1 bag 05/12/19 Heparin Sodium,Porcine/Pf [Heparin Lock Flush Syringe] 500 units IV PRN PRN #1 disp.syrin 05/12/19 Insulin Lispro [Humalog] 0 units SC ACHSINS #1 vial 05/12/19 Penicillin G Potassium 4 millionunt IV Q24H #1 vial 05/12/19 Penicillin G Potassium 20,000,000 unit IV Q24H #1 vial 05/12/19 Vancomycin HCl [Vancomycin] 125 mg PO Q12H #40 tab 05/12/19 oxyCODONE HCL [Oxycodone] 5 mg PO Q6H PRN #60 tab 04/01/20
[2019-05-12] MEDS: ASCORBIC ACID 500 MG TABLET PO SCH (09:01)
[2019-05-12] MEDS: FOLIC ACID 0.4 MG TABLET PO SCH (09:01)
[2019-05-12] MEDS: MULTIVITAMINS 1 CAP CAPSULE PO SCH (09:01)
[2019-05-12] MEDS: amLODIPine BESYLATE 5 MG TABLET PO SCH (09:01)
[2019-05-12] MEDS: CYANOCOBALAMIN 1,000 MCG TABLET PO SCH (09:01)
[2019-05-12] MEDS: oxyCODONE HCL 5 MG TABLET PO PRN (09:01)
[2019-05-12] MEDS: RIVAROXABAN 20 MG TABLET PO SCH (09:02)
[2019-05-12 09:44] VITALS: BP 142/47
== END 2019-05-12 10:00 | DRG 552 ==
LOC: MS 16:25
PROVIDERS: ADMIT Family Medicine; ATTEND Family Medicine
DX: M46.47 Discitis, unspecified, lumbosacral region; Z86.718 Personal history of other venous thrombosis and embolism; R33.9 Retention of urine, unspecified; N82.3 Fistula of vagina to large intestine; B95.2 Enterococcus as the cause of diseases classified elsewhere; N18.3 Chronic kidney disease, stage 3 (moderate); I12.9 Hypertensive chronic kidney disease with stage 1 through stage 4 chronic kidney disease, or unspecified chronic kidney disease; R78.81 Bacteremia; A04.72 Enterocolitis due to Clostridium difficile, not specified as recurrent; Z68.41 Body mass index [BMI] 40.0-44.9, adult; D61.818 Other pancytopenia; M06.9 Rheumatoid arthritis, unspecified; R14.0 Abdominal distension (gaseous); E66.01 Morbid (severe) obesity due to excess calories; E88.09 Other disorders of plasma-protein metabolism, not elsewhere classified; E11.22 Type 2 diabetes mellitus with diabetic chronic kidney disease; D63.1 Anemia in chronic kidney disease; F32.9 Major depressive disorder, single episode, unspecified
CPT/HCPCS: 36415; 80053; 85007; 85025; 87081; 87493; 97110; 97161; 97165; 97530